=== PATIENT | female | born 1980 | race African-American/Black ===

== ENCOUNTER 2017-07-20 04:30 | Emergency (ER) | payer OTHER ==
[~2017-07-20] VITALS: Ht 157.5 cm; Wt 46.3 kg
[2017-07-20 04:49] LABS: BASOPHILS # (AUTO) 0.1 (0.0-0.1); BASOPHILS % 1.1 % (0.0-1.0); EOSINOPHILS # (AUTO) 1.5 (0.0-0.4); EOSINOPHILS % 15.4 % (0.0-6.0); HEMATOCRIT 23.7 % (34.2-44.1); LYMPHOCYTES # (AUTO) 1.5 (1.0-3.2); LYMPHOCYTES % 15.4 % (18.0-39.1); MEAN CORPUSCULAR HEMOGLOBIN 24.9 pg (28-32); MEAN CORPUSCULAR HGB CONC 31.6 g/dL (31-35); MEAN CORPUSCULAR VOLUME 78.7 fL (81-99); MONOCYTES # (AUTO) 1.1 (0.2-0.8); MONOCYTES % 11.9 % (4.4-11.3); NEUTROPHILS # (AUTO) 5.4 (2.1-6.9); NEUTROPHILS % 55.9 % (38.7-80.0); PLATELET COUNT 403 x10e3/uL (140-360); RED BLOOD COUNT 3.01 x10e6/uL (3.6-5.1); RED CELL DISTRIBUTION WIDTH 16.5 % (11.7-14.4)
[2017-07-20 04:50] LABS: HEMOGLOBIN 7.5 g/dL (12.0-16.0)
[2017-07-20 04:57] LABS: INR 1.34; PROTHROMBIN TIME 15.6 seconds (11.9-14.5)
[2017-07-20 04:58] LABS: PARTIAL THROMBOPLASTIN TIME 38.7 seconds (23.8-35.5)
[2017-07-20 05:08] LABS: ALANINE AMINOTRANSFERASE 14 IU/L (0-55); ALBUMIN 2.5 g/dL (3.5-5.0); ALBUMIN/GLOBULIN RATIO 0.8 (0.8-2.0); ALKALINE PHOSPHATASE 141 IU/L (40-150); ANION GAP 16.5 mmol/L (8-16); BLOOD UREA NITROGEN 27 mg/dL (7-26); BUN/CREATININE RATIO 11 (6-25); CALCIUM 9.5 mg/dL (8.4-10.2); CARBON DIOXIDE 28 mmol/L (22-29); CHLORIDE 99 mmol/L (98-107); CREATININE, SERUM 2.38 mg/dL (0.57-1.11); EST GLOMERULAR FILTRATION RATE 28 ML/MIN (60-); GLUCOSE 245 mg/dL (74-118); POTASSIUM 3.5 mmol/L (3.5-5.1); SODIUM 140 mmol/L (136-145)
[2017-07-20] MEDS ORDERED: HYDRALAZINE HCL 20 MG/ML VIAL IV STA (05:57)
[2017-07-20] MEDS ORDERED: HYDRALAZINE HCL 20 MG/ML VIAL ONE (06:03)
== END 2017-07-20 06:47 ==
LOC: ER 04:30
DX: K06.8 Other specified disorders of gingiva and edentulous alveolar ridge (principal); I12.0 Hypertensive chronic kidney disease with stage 5 chronic kidney disease or end stage renal disease; N18.6 End stage renal disease; G93.1 Anoxic brain damage, not elsewhere classified
CPT/HCPCS: 36415; 80053; 85025; 85610; 85730; 86850; 86900; 99283; J0360

== ENCOUNTER 2017-07-29 19:50 | Inpatient (IN) | payer OTHER ==
[~2017-07-29] VITALS: Ht 157.5 cm; Wt 55.3 kg
[2017-07-29] MEDS: ALBUTEROL SULF 0.083% NEB SOLN 3 ML NEB NEB SCH (02:32)
[2017-07-29] MEDS: FLUCONAZOLE 200 MG/100 ML 100 ML IV SCH (02:50)
--- OUTSIDE RECORDS SUMMARY | 2017-07-29 19:54 | XMS REPORT | Continuity of Care Document ---
Author Author [facility] Organization [facility] Address [address] [place] [address] Phone Unavailable Care Team Providers Care Talent Specialist Name Role Phone ROMAN SHAHID MD PCP Insurance Providers Guarantor Maximilian Delgado Address [address] [place] [address] Email NONE Payer [employer] Policy Number [id number] Subscriber's Name Maximilian Delgado Relationship 18 Self / Same As Patient Advance Directives Directive Response Recorded Date/Time Does the patient have an advance directive? No 07/20/17 5:27am If yes, is advance directive on file with [facility]? No 07/20/17 5:27am If not on file with [facility] will patient provide a copy? Yes 07/20/17 5:27am Do you have a Directive to Physician? No 07/20/17 5:27am Do you have a Medical Power of Bioinformatics Specialist? No 07/20/17 5:27am Do you have an out of hospital Do Not Resuscitate Order? No 07/20/17 5:27am Do you have any special needs we should be aware of? No 07/20/17 5:27am Do you have a support person here with you today? Yes 07/20/17 5:27am Did patient receive Notice of Privacy Practices? Yes 07/20/17 5:27am Did patient receive patient rights and responsibilities? Yes 07/20/17 5:27am Problems No problem information available. Medications No medication information available. Social History Smoking Status Start Date Stop Date Unknown if ever smoked Hospital Discharge Instructions No hospital discharge instruction information available. Plan of Care Discharge Date 07/20/17 6:47am Disposition DIS TO SHELTER BED Condition at Discharge Stable Forms Provided Work/School Excuse Prescriptions See Medication Section Functional Status No functional status information available. Allergies, Adverse Reactions, Alerts No known allergies. Immunizations No immunization information available. Vital Signs Acute Vital Signs Vital Response Date/Time Height 5 ft 2 in 07/20/2017 4:46am Weight 102 lb 07/20/2017 4:46am Body Mass Index 18.7 kg/m^2 07/20/2017 4:46am Results Laboratory Results Test Name Result Units Flags Reference Collection Date/Time Result Date/ Time Comments White Blood Count 9.57 x10e3/uL 4.8-10.8 07/20/2017 4:38am 07/20/2017 4 :50am Red Blood Count 3.01 x10e6/uL L 3.6-5.1 07/20/2017 4:38am 07/20/2017 4: 50am Hemoglobin 7.5 g/dL *L 12.0-16.0 07/20/2017 4:38am 07/20/2017 4:50am Results called to WILLIAM ARNOLD RN at 0449 on 07/20/17 by Jann Samaniego. RB OK. This test has been rerun and double checked for accuracy. Hematocrit 23.7 % L 34.2-44.1 07/20/2017 4:38am 07/20/2017 4:50am Mean Corpuscular Volume 78.7 fL L 81-99 07/20/2017 4:38am 07/20/2017 4: 50am Mean Corpuscular Hemoglobin 24.9 pg L 28-32 07/20/2017 4:38am 2017 4:50am Mean Corpuscular Hemoglobin Concent 31.6 g/dL 31-35 07/20/2017 4:38am 07/20/2017 4:50am Red Cell Distribution Width 16.5 % H 11.7-14.4 07/20/2017 4:38am 2017 4:50am Platelet Count 403 x10e3/uL H 140-360 07/20/2017 4:38am 07/20/2017 4: 50am Neutrophils (%) (Auto) 55.9 % 38.7-80.0 07/20/2017 4:38am 07/20/2017 4: 50am Lymphocytes (%) (Auto) 15.4 % L 18.0-39.1 07/20/2017 4:38am 07/20/2017 4 :50am Monocytes (%) (Auto) 11.9 % H 4.4-11.3 07/20/2017 4:38am 07/20/2017 4: 50am Eosinophils (%) (Auto) 15.4 % H 0.0-6.0 07/20/2017 4:38am 07/20/2017 4: 50am Basophils (%) (Auto) 1.1 % H 0.0-1.0 07/20/2017 4:38am 07/20/2017 4: 50am IM GRANULOCYTES % 0.3 % 0.0-1.0 07/20/2017 4:38am 07/20/2017 4:50am Neutrophils # (Auto) 5.4 2.1-6.9 07/20/2017 4:38am 07/20/2017 4:50am Lymphocytes # (Auto) 1.5 1.0-3.2 07/20/2017 4:38am 07/20/2017 4:50am Monocytes # (Auto) 1.1 H 0.2-0.8 07/20/2017 4:38am 07/20/2017 4:50am Eosinophils # (Auto) 1.5 H 0.0-0.4 07/20/2017 4:38am 07/20/2017 4: 50am Basophils # (Auto) 0.1 0.0-0.1 07/20/2017 4:38am 07/20/2017 4:50am Absolute Immature Granulocyte (auto 0.03 x10e3/uL 0-0.1 07/20/2017 4: 38am 07/20/2017 4:50am Prothrombin Time 15.6 seconds H 11.9-14.5 07/20/2017 4:38am 07/20/2017 5 :02am Prothromb Time International Ratio 1.34 07/20/2017 4:38am 2017 5:02am Oral Anticoagulant Therapy INR Values: 1. Low Intensity Therapy 1.5 - 2.0 2. Moderate Intensity Therapy 2.0 - 3.0 3. High Intensity Therapy(1) 2.5 - 3.5 4. High Intensity Therapy(2) 3.0 - 4.0 5. Panic Value INR > 5.0 Activated Partial Thromboplast Time 38.7 seconds H 23.8-35.5 07/20/2017 4 :38am 07/20/2017 5:02am Sodium Level 140 mmol/L 136-145 07/20/2017 4:38am 07/20/2017 5:09am Potassium Level 3.5 mmol/L 3.5-5.1 07/20/2017 4:38am 07/20/2017 5:09am Chloride Level 99 mmol/L 98-107 07/20/2017 4:38am 07/20/2017 5:09am Carbon Dioxide Level 28 mmol/L 22-29 07/20/2017 4:38am 07/20/2017 5: 09am Anion Gap 16.5 mmol/L H 8-16 07/20/2017 4:38am 07/20/2017 5:09am Blood Urea Nitrogen 27 mg/dL H 7-26 07/20/2017 4:38am 07/20/2017 5:09am Creatinine 2.38 mg/dL H 0.57-1.11 07/20/2017 4:38am 07/20/2017 5:09am BUN/Creatinine Ratio 11 6-25 07/20/2017 4:38am 07/20/2017 5:09am Estimat Glomerular Filtration Rate 28 ML/MIN L 60- 07/20/2017 4:38am 11/2017 5:09am Ranges were taken from the National Kidney Disease Education Program and the National Kidney Foundation literature. Reference ranges: 60 or greater: Normal 16-59 (for 3 consecutive months): Chronic kidney disease 15 or less: Kidney failure Glucose Level 245 mg/dL H 74-118 07/20/2017 4:38am 07/20/2017 5:09am Calcium Level 9.5 mg/dL 8.4-10.2 07/20/2017 4:38am 07/20/2017 5:09am Total Bilirubin < 0.3 mg/dL 0.2-1.2 07/20/2017 4:38am 07/20/2017 5: 09am Aspartate Amino Transf (AST/SGOT) 16 IU/L 5-34 07/20/2017 4:38am 2017 5:09am Alanine Aminotransferase (ALT/SGPT) 14 IU/L 0-55 07/20/2017 4:38am 11/2017 5:09am Total Protein 5.8 g/dL L 6.5-8.1 07/20/2017 4:38am 07/20/2017 5:09am Albumin 2.5 g/dL L 3.5-5.0 07/20/2017 4:38am 07/20/2017 5:09am Globulin 3.3 g/dL 2.3-3.5 07/20/2017 4:38am 07/20/2017 5:09am Albumin/Globulin Ratio 0.8 0.8-2.0 07/20/2017 4:38am 07/20/2017 5: 09am Alkaline Phosphatase 141 IU/L 40-150 07/20/2017 4:38am 07/20/2017 5: 09am Procedures No procedure information available. Encounters Encounter Location Arrival/Admit Date Discharge/Depart Date Attending Provider Departed Emergency Room [facility] 07/20/17 4:30am 6:47am JOYCE JIMÉNEZ MD
[2017-07-29 21:07] LABS: ALBUMIN 2.4 g/dL (3.5-5.0); ALBUMIN/GLOBULIN RATIO 0.7 (0.8-2.0); ANION GAP 16.6 mmol/L (8-16); CALCIUM 11.2 mg/dL (8.4-10.2); CREATININE, SERUM 2.53 mg/dL (0.57-1.11); POTASSIUM 3.6 mmol/L (3.5-5.1)
--- NOTE | 2017-07-29 21:36 | Diagnostic Imaging Report ---
CHEST SINGLE (PORTABLE), 07/29/2017 8:04 PM Technique: CHEST SINGLE (PORTABLE) History: Elevated white blood cell count No comparison Findings: See Impression Impression: 1. Lines/Tubes: Tracheostomy in place. Left dual-lumen central venous catheter with tips in the left brachiocephalic vein and proximal SVC. 2. Permanent cardiomediastinal silhouette, accentuated by technique. 3. Diffuse bilateral and left basilar opacities which may reflect a combination of edema/infection. No significant effusion. Signed by: Dr Maya Martinez MD on 07/29/2017 9:32 PM
[2017-07-29 21:59] LABS: BASOPHILS % 0.3 % (0.0-1.0); EOSINOPHILS # (AUTO) 2.7 (0.0-0.4); EOSINOPHILS % 18.5 % (0.0-6.0); LYMPHOCYTES % 13.9 % (18.0-39.1); MEAN CORPUSCULAR HEMOGLOBIN 25.3 pg (28-32); MEAN CORPUSCULAR HGB CONC 30.7 g/dL (31-35); MEAN CORPUSCULAR VOLUME 82.4 fL (81-99); MONOCYTES # (AUTO) 1.5 (0.2-0.8); MONOCYTES % 10.5 % (4.4-11.3); NEUTROPHILS # (AUTO) 8.1 (2.1-6.9); NEUTROPHILS % 55.7 % (38.7-80.0); PLATELET COUNT 466 x10e3/uL (140-360); RED BLOOD COUNT 2.73 x10e6/uL (3.6-5.1); RED CELL DISTRIBUTION WIDTH 17.8 % (11.7-14.4)
[2017-07-29 22:01] LABS: HEMATOCRIT 22.5 % (34.2-44.1); HEMOGLOBIN 6.9 g/dL (12.0-16.0)
[2017-07-29] MEDS ORDERED: ASPIRIN 81 MG CHEW TAB PO ONE (22:15)
[2017-07-29] MEDS ORDERED: SODIUM CHLORIDE FLUSH 10 ML SYR INJ PRN (22:15)
[2017-07-29] MEDS ORDERED: DEXTROSE 50% SYRINGE 50 ML IV PRN (22:15)
[2017-07-29] MEDS ORDERED: ACETAMINOPHEN 1000 MG/100 ML IV PRN (22:15)
--- OUTSIDE RECORDS SUMMARY | 2017-07-29 22:33 | XMS REPORT ---
Author [facility] Address Unknown Phone Unavailable Care Team Providers Care Bunch Maker Hand Name Role Phone JOYCE JIMÉNEZ Unavailable Unavailable Problems This patient has no known problems. Allergies, Adverse Reactions, Alerts This patient has no known allergies or adverse reactions. Medications This patient has no known medications. Results Test Description Test Time Test Comments Text Results Atomic Results Result Comments CHEST SINGLE (PORTABLE) [place] [address] Patient Name: MAXIMILIAN DELGADO MR #: [id number] : 1980 Age/Sex: 37/F Req #: [id number] Adm Physician: Ordered by: JOYCE JIMÉNEZ MD Report #: [id number] Location: ER Room/Bed: ___ Procedure: [id number] DX/CHEST SINGLE (PORTABLE) Exam Date: 07/29/17 Exam Time: 2058 REPORT STATUS: Signed CHEST SINGLE (PORTABLE), 07/29/2017 8:04 PM Technique: CHEST SINGLE (PORTABLE) History: Elevated white blood cell count No comparison Findings: See Impression Impression: 1. Lines/Tubes: Tracheostomy in place. Left dual- lumen central venous catheter with tips in the left brachiocephalic vein and proximal SVC. 2. Permanent cardiomediastinal silhouette, accentuated by technique. 3. Diffuse bilateral and left basilar opacities which may reflect a combination of edema/infection. No significant effusion. Signed by: Dr Erick Martinez MD on 07/29/2017 9:32 PM Dictated By: ERICK MARTINEZ MD 31 Transcribed By: BREANNA on 07/29/172131 COPY TO: JOYCE JIMÉNEZ MD
[2017-07-29 22:44] LABS: CREATINE KINASE MB 1.2 ng/mL (0-5.0)
[2017-07-29] MEDS: MEROPENEM 500MG 500 MG in SODIUM CHLORIDE 0.9% 50ML 50 ML IV SCH (23:56)
[2017-07-30 01:10] VITALS: BP 180/79
[2017-07-30] MEDS: IPRATROPIUM BROMIDE 0.02% 2.5 ML NEB NEB SCH ×4 (02:05→19:30)
[2017-07-30] MEDS ORDERED: SODIUM CHLORIDE 0.9% 250ML 250 ML ONE ×2 (02:48→11:38)
[2017-07-30] MEDS: ALBUTEROL SULF 0.083% NEB SOLN 3 ML NEB NEB SCH ×6 (03:05→23:45)
[2017-07-30 04:00] VITALS: BP 190/79
[2017-07-30] MEDS ORDERED: SODIUM CHLORIDE 0.9% 250ML 250 ML IV ONE (04:45)
--- NOTE | 2017-07-30 05:09 | Consultation ---
DATE OF CONSULTATION: July 30, 2017 Most of the history is from the patient's father, chart and ER physician. A 37-year-old female apparently in a senior living with end-stage renal disease, anoxic brain injury, tracheostomy, totally dependent on activities of daily living. She was sent from the senior living because of elevated white count. No reported fever or chills. Blood cultures are pending. Laboratory test shows white count of 14.5, hemoglobin 6.9. Potassium 3.6, creatinine 2.53. Calcium 11.2. ALLERGIES: NO APPARENT DRUG ALLERGIES. CURRENT MEDICATIONS: Patient is on fluconazole, meropenem. Dr. Chambres following. Albuterol, aspirin, Atrovent nebulizers, insulin. SOCIAL HISTORY: Totally dependent on activities of daily. Anoxic brain injury. The patient unable to follow any commands. REVIEW OF SYSTEMS: Unable to get review of systems. Does not make eye contact. PHYSICAL EXAMINATION GENERAL: The patient has got a tracheostomy. Laying supine. No apparent distress. Left-sided tunnel dialysis catheter noted. VITALS: Blood pressure 154/84, pulse rate 84, oxygen saturation 100%. HEAD AND NECK: Oral mucosa unable to examine. Pupils reactive. Tracheostomy noted. LUNGS: Harsh vesicular breath sounds. Scattered rales in the lower third, right side more than left. Otherwise, anteriorly clear. HEART: S1 and S2 audible. ABDOMEN: Soft and nontender. PEG tube noted. LOWER EXTREMITY EXAMINATION: No edema. IMPRESSION AND PLAN 1. Anoxic brain injury: Dependent on activities of daily living. 2. Anemia: Plan is to transfuse 2 units of packed red blood cells. 3. Underlying sepsis: Dr. Chambers is aware and following. Antibiotics per Dr. Chambers. I will arrange dialysis. Transfuse packed RBCs. Chest x-ray shows evidence of possible clearing of pleural effusion. Recommend pulmonary input. Catheter exit site stable. No sign of infection. Fever workup per Dr. Chambers. Job#: [id number] [place]
[2017-07-30] MEDS ORDERED: HYDRALAZINE HCL 20 MG/ML VIAL IV PRN (06:15)
[2017-07-30 08:00] VITALS: BP 160/67
[2017-07-30] MEDS: INSULIN REGULAR, HUMAN 100 UNIT/1 ML 3ML VIAL SQ SCH ×4 (08:00→21:45)
[2017-07-30] MEDS ORDERED: METRONIDAZOLE500 MG PEG (10:22)
[2017-07-30] MEDS ORDERED: AMLODIPINE BESY10 MG PEG (10:22)
[2017-07-30] MEDS ORDERED: LANTUS 3ML100 UNITS/ SC (10:22)
[2017-07-30] MEDS ORDERED: METOCLOPRAMIDE10 MG PEG (10:22)
[2017-07-30] MEDS ORDERED: LEVETIRACETAM500 MG PEG (10:22)
[2017-07-30] MEDS ORDERED: LABETALOL HCL200 MG PEG (10:22)
[2017-07-30] MEDS ORDERED: FAMOTIDINE20 MG PO (10:22)
[2017-07-30] MEDS ORDERED: CLONIDINE HCL0.2 MG PEG (10:22)
[2017-07-30] MEDS ORDERED: ACETAMINOPHEN650 M1 PEG (10:22)
[2017-07-30] MEDS ORDERED: NEPHRO-VITE TABL1 EA PEG (10:22)
[2017-07-30] MEDS ORDERED: FERROUS SULFAT325 MG PEG (10:22)
[2017-07-30] MEDS ORDERED: DULCOLAX5 MG PEG (10:22)
[2017-07-30] MEDS ORDERED: HYDRALAZINE HCL25 MG PO (10:22)
[2017-07-30] MEDS ORDERED: ASCORBIC ACID500 MG PEG (10:22)
[2017-07-30] MEDS ORDERED: ZINC SULFATE220 MG PEG (10:22)
[2017-07-30] MEDS ORDERED: LACTULOSE20 GM/30 M PEG (10:22)
[2017-07-30] MEDS ORDERED: CEFTAZIDIM1 GM/50 ML IV (10:22)
[2017-07-30] MEDS ORDERED: phoslo PEG (10:22)
[2017-07-30] MEDS ORDERED: DIFLUCAN150 MG PEG (10:23)
[2017-07-30 10:25] LABS: CREATINE KINASE MB 1.6 ng/mL (0-5.0)
[2017-07-30] MEDS: AMLODIPINE BESYLATE 10 MG TAB PEG SCH (14:30)
[2017-07-30] MEDS ORDERED: BISACODYL 5 MG TAB EC PO PRN (14:30)
[2017-07-30] MEDS: HYDRALAZINE HCL 25 MG TAB PO SCH ×2 (14:30→18:10)
[2017-07-30] MEDS: LABETALOL HCL 200 MG TAB PO SCH ×2 (14:30→18:10)
[2017-07-30] MEDS ORDERED: LEVETIRACETAM 500 MG TAB PEG SCH (14:30)
[2017-07-30] MEDS: CLONIDINE HCL 0.1 MG TAB PO SCH ×2 (14:30→18:09)
[2017-07-30] MEDS ORDERED: PHOSLO 667 MG PEG SCH (15:00)
[2017-07-30] MEDS: FAMOTIDINE 20 MG TAB PO SCH ×2 (15:00→21:45)
[2017-07-30] MEDS: ACETAMINOPHEN 325 MG TAB PEG PRN (15:04)
[2017-07-30 16:00] VITALS: BP 178/94
--- NOTE | 2017-07-30 16:11 | History and Physical ---
PRIMARY CARE PROVIDER: Dr. Major Arguello at [facility]. CHIEF COMPLAINT: Pneumonia with sepsis. HISTORY OF PRESENT ILLNESS: Ms. 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 She has a trach and a PEG, and has been at the [facility]. She has been on IV vanc and Fortaz for the last 2 weeks for pneumonia. She started having recurrent fever and was sent to the hospital for evaluation at the recommendation of the ID doctor that is seeing her at the senior care. REVIEW OF SYSTEMS: Unobtainable as the patient is nonvocal and nonverbal. PAST MEDICAL HISTORY: Significant for anoxic brain injury due to cardiac arrest a couple years ago. She has a trach and PEG in place, and a dialysis catheter. She has long-standing hypertension and type 2 diabetes. She has end-stage renal disease and seizures that occurred after the cardiac arrest. CURRENT MEDICATIONS: In addition to the antibiotics include: 1. Keppra 1000 mg twice daily. 2. Metoclopramide 5 mg q.6 h. by PEG. 3. Metronidazole 500 mg by PEG 3 times a day. 4. Zinc sulfate 220 mg by PEG daily. 5. PhosLo 667 mg by PEG 3 times a day. 6. Hydralazine 50 mg by PEG q.6 h. 7. Dulcolax as needed. 8. Vitamin C 500 mg by PEG daily. 9. Amlodipine 10 mg by PEG daily. 10. Tylenol as needed. 11. Lactulose as needed. 12. Labetalol 600 mg on Tuesday, Tuesday, Tuesday, and Tuesday. 13. Lantus insulin 35 units at bedtime. 14. Nephro-Be daily. 15. Ferrous sulfate 325 mg 3 times a day. 16. Pepcid 20 mg daily. 17. Clonidine 0.2 mg on Tuesday, Tuesday, Tuesday, and Tuesday. ALLERGIES: SHE HAS NO KNOWN DRUG ALLERGIES. FAMILY HISTORY: Significant for hypertension and diabetes. SOCIAL HISTORY: The patient is a resident at [facility]. She has anoxic brain injury and requires assistance with all activities of daily living. She is totally dependent and unresponsive. PHYSICAL EXAMINATION PSYCHIATRIC: As noted above. The patient is unresponsive. Her eyes are open, but she does not respond to stimulation. She has a normal body habitus. Is in no acute distress. VITAL SIGNS: Blood pressure 160/67, pulse 111 and regular, respiratory rate 16, O2 sat 99% on room air, temperature 96.8. Max temp on arrival 100. HEENT: Head is atraumatic. Eyes are anicteric with clear conjunctivae. Ears and nares are without erythema or discharge. Oropharynx is clear. NECK: Supple. No mass or thyromegaly. LYMPHATIC SYSTEM: She has no palpable cervical, axillary or inguinal adenopathy. CARDIOVASCULAR: Her heart has a regular rate and rhythm. Somewhat tachycardic without murmur. She has no peripheral edema, except the right hand has some pitting edema. She has palpable dorsal pedal pulses. She has no carotid bruit. RESPIRATORY: Lungs reveal some coarse breath sounds and some scattered rhonchi with normal respiratory effort. GASTROINTESTINAL: Abdomen is soft without organomegaly, masses or tenderness. She has a functional PEG tube in place. Normal bowel sounds are present. CUTANEOUS: Her skin is warm and dry to touch with no rash. She has a stage 3 decubitus ulcer in the sacral area. MUSCULOSKELETAL: Her joints are in normal alignment without erythema or swelling. She has no calf tenderness. NEUROLOGIC: The patient is in a persistent neurovegetative state. She has no spontaneous movement and she is unresponsive to stimulation. DIAGNOSTIC STUDIES: Chest x-ray shows a trach in place. A central venous dialysis catheter in good position and patchy bilateral infiltrates. Her CBC shows a white count of 14.5, which is elevated with 56% neutrophils, 14% lymphocytes, 11% monocytes. Hemoglobin 6.9, hematocrit 22.5 with microcytic indices and platelet count 466,000. Chemistry showed normal electrolytes. CO2 29, creatinine 2.53, BUN 11 for a GFR of 26. Calcium 11.2. Glucose 100. Transaminases, bilirubin and alk phos are normal. IMPRESSION AND PLAN 1. Pneumonia with sepsis: The patient has been started empirically on intravenous fluconazole and meropenem per the infectious disease specialist who has been consulted. She will continue aggressive nebulizer treatments too. 2. Persistent neurovegetative state: The patient has a trach and percutaneous endoscopic gastrostomy in place. Will continue tube feeding and oxygen by trach collar. 3. Hypertension with end-stage renal disease: The patient will continue with labetalol, hydralazine, clonidine, and Norvasc. 4. Type 2 diabetes with end-stage renal disease: The patient is getting tube feeding with Glucerna. Will continue sliding scale insulin for now. 5. End-stage renal disease: Nephrology has been consulted for hemodialysis, which she is receiving today. 6. Microcytic anemia, most likely due to the end-stage renal disease: The patient is getting transfused 2 units of packed red cells during dialysis today for a hemoglobin of 6.9. 7. Sacral decubitus ulcer: The patient has been started on wound care and is getting nutritional supplements for wound healing. 8. Hypercalcemia most likely due to dehydration and due to the chronic kidney disease: The patient has been started on PhosLo and some hydration. With dialysis, the hypercalcemia should resolve on its own. 9. For prophylaxis, the patient is on Pepcid for gastrointestinal prophylaxis and sequential compression devices for deep venous thrombosis prophylaxis. Her risk of being minimal due to the fact that she has been bedbound for almost 2 years now. Job#: [id number] AMBIKA
[2017-07-30] MEDS ORDERED: SODIUM CHLORIDE 0.9% 1000ML 1,000 ML ONE (17:36)
[2017-07-30] MEDS: METOCLOPRAMIDE HCL 10 MG TAB PEG SCH (18:10)
[2017-07-30] MEDS: CALCIUM ACETATE 667 MG GELCAP PEG SCH (18:11)
[2017-07-30 20:00] VITALS: BP 130/60
[2017-07-30 21:45] VITALS: BP 130/60
[2017-07-30] MEDS: LEVETIRACETAM ORAL SOLUTION 500 MG/5 ML SOLN PEG SCH (21:45)
[2017-07-30] MEDS: METRONIDAZOLE 500 MG TAB PEG SCH (21:45)
[2017-07-30 22:34] LABS: INR 1.31; PROTHROMBIN TIME 15.3 seconds (11.9-14.5)
[2017-07-30 22:49] LABS: CREATINE KINASE MB 2.4 ng/mL (0-5.0)
[2017-07-31] VITALS (51 sets, daily range): BP systolic 97–180; BP diastolic 49–107
[2017-07-31] MEDS ORDERED: MEROPENEM 500 MG VIAL ONE ×2 (00:28→23:29)
[2017-07-31] MEDS: HYDRALAZINE HCL 25 MG TAB PO SCH ×4 (00:42→18:00)
[2017-07-31] MEDS: METOCLOPRAMIDE HCL 10 MG TAB PEG SCH ×4 (00:42→17:47)
--- NOTE | 2017-07-31 00:42 | Consultation ---
DATE OF CONSULTATION: REASON FOR CONSULTATION: Fever. HISTORY OF PRESENT ILLNESS: This is a 37-year-old female with end-stage renal disease, on hemodialysis; history of anoxic brain injury; history of tracheostomy; multiple admissions recently for pneumonia; and the patient was recently in [facility] where she was diagnosed with pneumonia. She was transferred to skilled care facility with IV antibiotic. She received 3 weeks of intravenous vancomycin and meropenem, but then she was felt to have fever, she also had anemia. I was contacted by the internal medicine service about her condition. We discussed her case. I felt if she is running fever come here. This patient does not really provide any meaningful information. She does have history of anoxic brain injury from cardiac arrest couple of years ago, status post trach, status post PEG. Now on hemodialysis. She also has history of hypertension and diabetes mellitus. There is no family for me to interview at present time. PAST MEDICAL HISTORY AND PAST SURGICAL HISTORY: As above. ALLERGIES: NKA. SOCIAL HISTORY: From a prison. FAMILY HISTORY: Could not be obtained. REVIEW OF SYSTEMS: Could not be obtained. HOME MEDICATIONS: She is on Keppra, metronidazole, zinc oxide, vitamin C. LABORATORY DATA: Reviewed. White count 14.5, hemoglobin 6.9. Her sodium 136, potassium 3.6. PHYSICAL EXAMINATION: GENERAL: She is nonverbal, does not seem to be in acute distress. VITALS: Stable, currently afebrile. HEENT: She does not appear icteric. NECK: Supple. CHEST: Clear. COR: S1 and S2, no murmur. ABDOMEN: Soft. IMPRESSION: 1. Fever, concern about infection, fungemia. Obtain blood cultures, discontinue on antibiotic. Will put her on Diflucan. 2. History of pneumonia, aspiration. 3. Chronic kidney disease. 4. Brain injury with encephalopathy. 5. Anemia, etiology unclear. Status post tracheostomy, probably recurrent aspiration pneumonia, probably pulmonary edema also. Depending on the blood cultures and the clinical progress, will follow. Continue the above plan. Discussed with internal medicine. Discussed with emergency room. Thank you. Job#: [id number]
[2017-07-31] MEDS: FLUCONAZOLE 200 MG/100 ML 100 ML IV SCH ×2 (00:43→22:48)
[2017-07-31] MEDS: MEROPENEM 500MG 500 MG in SODIUM CHLORIDE 0.9% 50ML 50 ML IV SCH ×2 (00:43→23:26)
[2017-07-31] MEDS ORDERED: LEVETIRACETAM 500 MG TAB PEG SCH (02:30)
[2017-07-31] MEDS: ALBUTEROL SULF 0.083% NEB SOLN 3 ML NEB NEB SCH ×6 (03:12→22:21)
[2017-07-31] MEDS: IPRATROPIUM BROMIDE 0.02% 2.5 ML NEB NEB SCH ×5 (03:12→22:21)
[2017-07-31 06:07] LABS: BASOPHILS # (AUTO) 0.2 (0.0-0.1); BASOPHILS % 0.9 % (0.0-1.0); EOSINOPHILS # (AUTO) 0.5 (0.0-0.4); EOSINOPHILS % 2.5 % (0.0-6.0); HEMOGLOBIN 9.7 g/dL (12.0-16.0); LYMPHOCYTES # (AUTO) 1.6 (1.0-3.2); LYMPHOCYTES % 8.6 % (18.0-39.1); MEAN CORPUSCULAR HEMOGLOBIN 26.4 pg (28-32); MEAN CORPUSCULAR HGB CONC 30.3 g/dL (31-35); MEAN CORPUSCULAR VOLUME 87.2 fL (81-99); MONOCYTES # (AUTO) 1.5 (0.2-0.8); NEUTROPHILS # (AUTO) 14.1 (2.1-6.9); NEUTROPHILS % 77.6 % (38.7-80.0); PLATELET COUNT 425 x10e3/uL (140-360); RED BLOOD COUNT 3.67 x10e6/uL (3.6-5.1); RED CELL DISTRIBUTION WIDTH 17.9 % (11.7-14.4)
[2017-07-31] MEDS: METRONIDAZOLE 500 MG TAB PEG SCH ×3 (06:18→22:47)
[2017-07-31] MEDS: INSULIN REGULAR, HUMAN 100 UNIT/1 ML 3ML VIAL SQ SCH ×4 (08:10→21:00)
[2017-07-31 08:13] LABS: FOLATE 19.7 ng/mL (7.0-15.4)
[2017-07-31] MEDS ORDERED: SODIUM CHLORIDE 0.9% 1000ML 1,000 ML IV ONE (08:20)
[2017-07-31] MEDS ORDERED: SODIUM CHLORIDE 0.9% 500ML 500 ML ONE (08:31)
[2017-07-31 08:42] LABS: ANION GAP 43.5 mmol/L (8-16); CALCIUM 10.1 mg/dL (8.4-10.2); CREATININE, SERUM 2.86 mg/dL (0.57-1.11); POTASSIUM 4.5 mmol/L (3.5-5.1)
[2017-07-31] MEDS: AMLODIPINE BESYLATE 10 MG TAB PEG SCH (09:00)
[2017-07-31] MEDS: LABETALOL HCL 200 MG TAB PO SCH ×2 (09:00→17:46)
[2017-07-31] MEDS: CLONIDINE HCL 0.1 MG TAB PO SCH ×2 (09:00→17:00)
[2017-07-31 09:01] LABS: FREE T4 (FREE THYROXINE) 1.23 ng/dL (0.9-1.8); THYROID STIMULATING HORMONE 2.601 uIU/mL (0.350-4.940)
[2017-07-31 09:12] LABS: ABG HCO3 4 mmol/L (23-28); ABG PCO2 12 mmHg (41-51); ABG PH 7.13 (7.31-7.41); ABG PO2 138 mmHg (80-105)
[2017-07-31] MEDS ORDERED: SODIUM BICARBONATE 8.4% INJ 50 ML SYR IV SCH ×2 (10:25)
[2017-07-31] MEDS: ZINC SULFATE 220 MG CAP PEG SCH (10:47)
[2017-07-31] MEDS: ASCORBIC ACID 500 MG TAB PEG SCH (10:47)
[2017-07-31] MEDS: CALCIUM ACETATE 667 MG GELCAP PEG SCH ×3 (10:47→17:00)
[2017-07-31] MEDS: LEVETIRACETAM ORAL SOLUTION 500 MG/5 ML SOLN PEG SCH ×2 (10:47→21:30)
[2017-07-31] MEDS: FAMOTIDINE 20 MG TAB PO SCH ×2 (10:47→21:30)
[2017-07-31] MEDS: LINEZOLID 600 MG/D5W 300ML 300 ML IV SCH ×2 (10:47→22:47)
[2017-07-31 10:55] LABS: MAGNESIUM 2.2 MG/DL (1.3-2.1)
[2017-07-31 11:21] LABS: BILIRUBIN,URINE NEGATIVE (NEGATIVE); KETONES,URINE 1+ (NEGATIVE); LEUKOCYTE ESTERASE ,URINE 2+ (NEGATIVE); PROTEIN,URINE DIPSTICK 3+ (NEGATIVE); URINE UROBILINOGEN 0.2 mg/dL (0.2 - 1)
[2017-07-31 11:33] LABS: CLARITY,URINE CLOUDY (CLEAR); COLOR,URINE YELLOW (YELLOW); NITRITE,URINE POSITIVE (NEGATIVE)
[2017-07-31 11:41] LABS: AMORPHOUS SEDIMENT,URINE FEW (FEW); BACTERIA,URINE MANY /HPF; EPITHELIAL CELLS,URINE FEW /LPF; MUCUS,URINE MODERATE (RARE); RBC,URINE 21-50 /HPF (0-5); WBC,URINE (MAN) >50 /HPF (0-5)
--- NOTE | 2017-07-31 11:47 | Diagnostic Imaging Report ---
EXAMINATION: CHEST SINGLE (PORTABLE) INDICATION: \S\pna \[id number] \S\1050 COMPARISON: 07/29/2017 FINDINGS: AP view TUBES and LINES: Stable tracheostomy tube and left internal jugular dialysis catheter. LUNGS: Lungs are well inflated. Mild central vascular congestion. No focal consolidation. PLEURA: No pleural effusion or pneumothorax. HEART AND MEDIASTINUM: Enlarged cardiac silhouette. BONES AND SOFT TISSUES: No acute osseous lesion. Soft tissues are unremarkable. UPPER ABDOMEN: No free air under the diaphragm. IMPRESSION: Enlarged cardiac silhouette with pulmonary vascular congestion. No definite focal consolidation. Signed by: Dr. Solomon Dial MD on 07/31/2017 11:44 AM
[2017-07-31] MEDS ORDERED: DEXTROSE 5%/0.45% SOD CHL 1,000 ML IV SCH (11:57)
[2017-07-31] MEDS ORDERED: POTASSIUM CHLORIDE 20MEQ/100ML 200 ML IV PRN (12:00)
[2017-07-31] MEDS ORDERED: MAGNESIUM SULF 1GRAM/DEXTROSE 100 ML IV PRN (12:00)
--- NOTE | 2017-07-31 12:12 | Operative Report ---
DATE OF PROCEDURE: PROCEDURE: Tracheostomy tube change. PROCEDURE IN DETAIL: The patient was put in supine position. Uncuffed tracheostomy tube, Shiley 4, was removed, and Shiley 4 cuffed was placed. Job#: [id number] RI
[2017-07-31] MEDS: SODIUM CHLORIDE 0.9% 1000ML 1,000 ML IV SCH ×4 (12:25→23:57)
[2017-07-31 12:49] LABS: ABG HCO3 12 mmol/L (23-28); ABG PCO2 22 mmHg (41-51); ABG PH 7.39 (7.31-7.41); ABG PO2 247 mmHg (80-105)
[2017-07-31] MEDS: INSULIN REGULAR, HUMAN 3ML VL 100 UNIT in SODIUM CHLORIDE 0.9% 99 ML IV SCH ×4 (13:00→22:45)
[2017-07-31] MEDS: INSULIN REGULAR, HUMAN 3ML VL 1 UNIT in SODIUM CHLORIDE 0.9% 100 ML IV SCH ×2 (13:00)
[2017-07-31 13:01] LABS: ANION GAP 39.4 mmol/L (8-16); CALCIUM 9.7 mg/dL (8.4-10.2); CREATININE, SERUM 3.05 mg/dL (0.57-1.11); POTASSIUM 3.4 mmol/L (3.5-5.1)
[2017-07-31] MEDS ORDERED: HEPARIN SOD (PORCINE) 5,000 UNIT/ML VIAL ONE (13:42)
[2017-07-31] MEDS ORDERED: SODIUM CHLORIDE 0.9% 1000ML 2,000 ML ONE (13:43)
[2017-07-31 14:01] LABS: MAGNESIUM 2.1 MG/DL (1.3-2.1)
--- NOTE | 2017-07-31 14:27 | Consultation ---
DATE OF CONSULTATION: PULMONARY CONSULTATION REASON FOR CONSULTATION: Ventilator management and tracheostomy. HPI: Ms. Mason is a 37-year-old female known to me from [facility]. 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 She has a trach and PEG. She is on hemodialysis as well. She is completely unresponsive. Today, she became more short of breath and was labored. Pulmonary consultation was called. Patient's white count is 18,000 and bicarb on admission was 29. Today, it is 6. Blood gas showed pH of 7.13, pCO2 of 12 and pO2 of 138. Chest x-ray is showing possibility of left lower lobe infiltrate, not very convincing. REVIEW OF SYSTEMS: Unobtainable because of the patient's mental status. PAST MEDICAL HISTORY: End-stage renal disease, anoxic brain injury, tracheostomy, PEG, and type 2 diabetes mellitus. MEDICATIONS: Reviewed. ALLERGIES: NO KNOWN DRUG ALLERGIES. FAMILY HISTORY: Significant for diabetes and hypertension. SOCIAL HISTORY: Currently, at [facility]. She has anoxic brain injury. She is dependent. PHYSICAL EXAMINATION VITAL SIGNS: Temperature 97.8, pulse of 104, blood pressure 97/49, respiratory rate is 24 to 28 per minute. She has a Shiley 4 uncuffed trach. HEENT: Head is atraumatic and normocephalic. She has a persistent vegetative state. CHEST: Clear to auscultation bilaterally. Tracheostomy, Shiley 4 uncuffed. ABDOMEN: Soft, nontender and nondistended. EXTREMITIES: No clubbing, cyanosis or edema. NEUROLOGIC: Anoxic brain injury and unresponsive. LABS: White count of 18,000, hemoglobin 9.7 and platelets 425,000. White count was 14,000 yesterday. Chemistry: BUN 28, creatinine 2.86, bicarb 6. Bicarb was 29 yesterday. Lactic acid today was 11.5, which is within normal limits. Blood sugars have been 512. ASSESSMENT AND PLAN: Ms. Mason is a 37-year-old female who presented with possibility of pneumonia. Currently, in circulatory shock with hypotension, severe metabolic acidosis with normal lactic acid. Blood sugars around 512. Urinalysis shows 1+ ketones. Anion gap of 43.5. Patient is likely in diabetic ketoacidosis versus starvation ketosis. Unlikely, since lactic acid is within normal limits. Catheter site looks dirty as well. IMPRESSION 1. Severe metabolic acidosis, likely ketoacidosis from diabetic ketoacidosis versus starvation. 2. Sepsis: Not very convinced that the patient has pneumonia. However, at high risk of getting pneumonia. 3. Neurovegetative state. 4. Tracheostomy and percutaneous endoscopic gastrostomy tube status. 5. End-stage renal disease. PLAN 1. Will put the patient on mechanical ventilator as she is unable to compensated and is extremely tachypneic with a pCO2 of 12. I will put her on tidal volume of 400, respiratory rate of 22. Patient is about to get hemodialysis. 2. Will give at least 2-3 L of fluid bolus. 3. Start the patient on insulin infusion. Check BMP q.8 h. 4. IV antibiotics per infectious disease recommendations. 5. Discussed with nephrology. Patient will get hemodialysis. Critical care time spent 45 minutes. Job#: [id number] AMBIKA
[2017-07-31 16:51] LABS: ANION GAP 17.5 mmol/L (8-16); CALCIUM 8.8 mg/dL (8.4-10.2); CREATININE, SERUM 1.26 mg/dL (0.57-1.11)
[2017-07-31 17:06] LABS: MAGNESIUM 2.3 MG/DL (1.3-2.1)
[2017-07-31 17:12] LABS: POTASSIUM 2.5 mmol/L (3.5-5.1)
[2017-07-31] MEDS ORDERED: DEXTROSE 5%/0.45% SOD CHL 1,000 ML IV ONE (18:02)
[2017-07-31] MEDS ORDERED: POTASSIUM CHLORIDE 20MEQ/100ML 200 ML ONE (18:02)
[2017-07-31] MEDS: DEXTROSE 5%/0.45% SOD CHL 1,000 ML IV SCH ×2 (18:27→22:00)
[2017-07-31] MEDS ORDERED: DIATRIZOATE MEGL/DIATRIZOA SOD 30 ML BTL PO ONE (20:17)
[2017-07-31 21:17] LABS: ANION GAP 21.2 mmol/L (8-16); CALCIUM 8.6 mg/dL (8.4-10.2); CREATININE, SERUM 1.44 mg/dL (0.57-1.11); MAGNESIUM 1.5 MG/DL (1.3-2.1); POTASSIUM 3.2 mmol/L (3.5-5.1)
--- NOTE | 2017-07-31 21:42 | Progress Note ---
DATE OF CONSULTATION: Ms. Mason, I was contacted today that she continues to worse shortness of breath, and doing well, transferred to ICU. The patient remains nonverbal. This patient has history of anoxic brain surgery, history of end-stage renal disease, used to be on peritoneal dialysis, now on hemodialysis, history of tracheostomy, history diabetes mellitus. Patient was transferred to intensive care unit. She is on dialysis now. No family for me to interview. LABORATORY DATA: Reviewed. Her white count is 18.2, hemoglobin 9.7, it was 6.9 yesterday. Sodium 141, potassium 3.4, creatinine 3.05. Her blood cultures negative so far. PHYSICAL EXAMINATION GENERAL: She is currently in the ICU, intubated, nonverbal. VITALS: Temperature 100.0. HEENT: Normocephalic. NECK: Supple. CHEST: Few rhonchi, coarse. HEART: No murmur. ABDOMEN: Soft. IMPRESSIONS 1. Sepsis, probably pneumonia. 2. Anemia. 3. Currently, she is on linezolid, metronidazole, meropenem, and fluconazole. Will await the blood cultures. Will obtain computed tomography of abdomen and pelvis with oral contrast. 4. Anoxic brain injury. 5. End-stage renal disease, on hemodialysis. Prognosis is poor. Will follow. Job#: [id number] CQ
--- NOTE | 2017-07-31 23:08 | Diagnostic Imaging Report ---
EXAM: CT ABDOMEN/PELVIS WO DATE: 07/31/2017 4:20 PM INDICATION: Colitis COMPARISON: None TECHNIQUE: The abdomen and pelvis were scanned using a multidetector helical scanner. Coronal and sagittal reformations were obtained. Routine protocol performed. IV Contrast: 0 ml Isovue 370 Oral contrast was administered FINDINGS: Lack of IV contrast decreases sensitivity in evaluating abdominal and pelvic organs. LOWER THORAX: Evidence of anemia. Mild cardiomegaly with trace pericardial fluid and pleural effusions. Scattered mucous plugging with left basilar and right middle lobe opacity. Several nonspecific nodules/nodular opacity measuring up to 6 mm. LIVER/BILIARY: No masses. No ductal dilatation. GALLBLADDER: Layering gallstones SPLEEN: Unremarkable PANCREAS: Grossly unremarkable, poorly assessed ADRENALS: No nodules KIDNEYS: No hydronephrosis. GI TRACT: G-tube within the gastric antrum. No evidence of bowel obstruction. There is mild colonic and rectal wall thickening. Appendix is not seen.. VESSELS: Severe diffuse atherosclerotic calcifications. Right femoral catheter terminates within the right external/common iliac vein. PERITONEUM/RETROPERITONEUM: No fluid collection or free air. Diffuse mesenteric haziness. LYMPH NODES: Poorly evaluated without IV contrast REPRODUCTIVE ORGANS/BLADDER: Bladder is decompressed with a Trotter. Pelvic organs are suboptimally assessed. SOFT TISSUES: Anasarca. BONES: No suspicious bone lesions. IMPRESSION: Evaluation degraded by lack of IV contrast 1. Mild proctocolitis, likely infectious or inflammatory. 2. Patchy mucous plugging and pulmonary opacities which may be related to prior/recent infection. Several nonspecific pulmonary nodules. Consider 6-12 month follow-up CT chest. Signed by: Dr Maya Martinez MD on 07/31/2017 11:04 PM
[2017-08-01] VITALS (64 sets, daily range): BP systolic 125–199; BP diastolic 68–109
[2017-08-01 00:31] LABS: ANION GAP 25.4 mmol/L (8-16); CALCIUM 8.5 mg/dL (8.4-10.2); CREATININE, SERUM 1.67 mg/dL (0.57-1.11); MAGNESIUM 1.4 MG/DL (1.3-2.1); POTASSIUM 3.4 mmol/L (3.5-5.1)
[2017-08-01] MEDS: METOCLOPRAMIDE HCL 10 MG TAB PEG SCH ×4 (00:36→17:12)
[2017-08-01] MEDS: HYDRALAZINE HCL 25 MG TAB PO SCH ×4 (00:36→18:00)
[2017-08-01] MEDS: POTASSIUM CHLORIDE 20MEQ/100ML 200 ML IV PRN ×2 (01:50→05:43)
[2017-08-01] MEDS: SODIUM CHLORIDE 0.9% 1000ML 1,000 ML IV SCH ×6 (02:42→23:57)
[2017-08-01] MEDS: IPRATROPIUM BROMIDE 0.02% 2.5 ML NEB NEB SCH ×4 (03:50→20:50)
[2017-08-01 04:57] LABS: BASOPHILS # (AUTO) 0.1 (0.0-0.1); BASOPHILS % 0.5 % (0.0-1.0); EOSINOPHILS # (AUTO) 0.8 (0.0-0.4); EOSINOPHILS % 5.2 % (0.0-6.0); HEMATOCRIT 25.1 % (34.2-44.1); HEMOGLOBIN 8.5 g/dL (12.0-16.0); LYMPHOCYTES # (AUTO) 1.7 (1.0-3.2); LYMPHOCYTES % 10.8 % (18.0-39.1); MEAN CORPUSCULAR HGB CONC 33.9 g/dL (31-35); MONOCYTES # (AUTO) 1.9 (0.2-0.8); NEUTROPHILS % 70.5 % (38.7-80.0); PLATELET COUNT 305 x10e3/uL (140-360); RED BLOOD COUNT 3.15 x10e6/uL (3.6-5.1); RED CELL DISTRIBUTION WIDTH 17.5 % (11.7-14.4)
[2017-08-01] MEDS: INSULIN REGULAR, HUMAN 3ML VL 1 UNIT in SODIUM CHLORIDE 0.9% 100 ML IV SCH ×2 (05:00)
[2017-08-01 05:03] LABS: MEAN CORPUSCULAR VOLUME 79.7 fL (81-99)
[2017-08-01 05:14] LABS: ANION GAP 14.2 mmol/L (8-16); CALCIUM 8.8 mg/dL (8.4-10.2); CREATININE, SERUM 1.85 mg/dL (0.57-1.11); MAGNESIUM 1.5 MG/DL (1.3-2.1); PHOSPHORUS 1.1 MG/DL (2.3-4.7); POTASSIUM 3.2 mmol/L (3.5-5.1)
[2017-08-01] MEDS: METRONIDAZOLE 500 MG TAB PEG SCH ×3 (05:37→22:22)
[2017-08-01] MEDS ORDERED: MAGNESIUM SULF 1GRAM/DEXTROSE 100 ML IV ONE (06:40)
[2017-08-01] MEDS: ALBUTEROL SULF 0.083% NEB SOLN 3 ML NEB NEB SCH ×5 (07:21→23:45)
[2017-08-01] MEDS: INSULIN REGULAR, HUMAN 100 UNIT/1 ML 3ML VIAL SQ SCH ×5 (07:30→21:00)
[2017-08-01] MEDS: INSULIN REGULAR, HUMAN 3ML VL 100 UNIT in SODIUM CHLORIDE 0.9% 99 ML IV SCH ×2 (08:45)
[2017-08-01 09:19] LABS: ANION GAP 13.7 mmol/L (8-16); CREATININE, SERUM 1.89 mg/dL (0.57-1.11); MAGNESIUM 1.7 MG/DL (1.3-2.1); POTASSIUM 3.7 mmol/L (3.5-5.1)
[2017-08-01] MEDS ORDERED: MANNITOL 25% 12.5GM/50 ML VIAL IV PRN (09:30)
[2017-08-01] MEDS ORDERED: HEPARIN SOD (PORCINE) 1000 UNIT/ML SDV IV PRN (09:30)
[2017-08-01] MEDS ORDERED: SODIUM CHLORIDE 0.9% 250ML 500 ML IV PRN (09:30)
[2017-08-01] MEDS ORDERED: SODIUM CHLORIDE 0.9% 1000ML 2,000 ML IV PRN (09:30)
[2017-08-01] MEDS ORDERED: ALBUMIN 25% 12.5GM 0.25 GM/ML BTL IV PRN (09:30)
[2017-08-01] MEDS ORDERED: INSULIN DETEMIR 100 UNIT/ML PEN SQ ONE (10:45)
[2017-08-01] MEDS: LEVETIRACETAM ORAL SOLUTION 500 MG/5 ML SOLN PEG SCH ×2 (12:00→22:21)
[2017-08-01] MEDS: LINEZOLID 600 MG/D5W 300ML 300 ML IV SCH ×2 (13:00→22:22)
[2017-08-01] MEDS: CALCIUM ACETATE 667 MG GELCAP PEG SCH ×3 (13:10→17:13)
[2017-08-01] MEDS: AMLODIPINE BESYLATE 10 MG TAB PEG SCH (13:11)
[2017-08-01] MEDS: FAMOTIDINE 20 MG TAB PO SCH ×2 (13:12→22:22)
[2017-08-01] MEDS: CLONIDINE HCL 0.1 MG TAB PO SCH ×2 (13:12→17:13)
[2017-08-01] MEDS: LABETALOL HCL 200 MG TAB PO SCH ×2 (13:12→17:12)
[2017-08-01] MEDS: ASCORBIC ACID 500 MG TAB PEG SCH (13:12)
[2017-08-01] MEDS: ZINC SULFATE 220 MG CAP PEG SCH (13:12)
[2017-08-01] MEDS ORDERED: INSULIN DETEMIR 100 UNIT/ML PEN SQ STA (14:23)
[2017-08-01] MEDS ORDERED: DEXTROSE 50% SYRINGE 50 ML IV PRN (14:30)
[2017-08-01] MEDS: DEXTROSE 5%/0.45% SOD CHL 1,000 ML IV SCH ×2 (15:37→18:00)
--- NOTE | 2017-08-01 16:33 | Progress Note ---
DATE: August 01, 2017 Ms. Mason remains in ICU on a ventilator. The patient is nonverbal. OBJECTIVE GENERAL: She is currently nonverbal. She is not in any acute distress. VITAL SIGNS: Stable. Temperature 100.1. HEENT: Normocephalic. NECK: Supple. CHEST: A few crackles. HEART: S1 and S2, no murmur. ABDOMEN: Soft. IMPRESSION 1. Sepsis. 2. Pneumonia. 3. History of anoxic brain injury. 4. Chronic kidney disease on hemodialysis. 5. Non-vegetative state. PLAN: Continue with the current choice of antibiotic. Continue with Fluconazole, linezolid, and meropenem. Plan for [address] scan which was done yesterday showed mild pancolitis. Will continue to monitor the patient. We may have to treat her with long course of metronidazole for C. diff. Will reassess again in the morning. Job#: [id number]
[2017-08-01] MEDS ORDERED: MEROPENEM 500 MG VIAL ONE (22:30)
[2017-08-01] MEDS: MEROPENEM 500MG 500 MG in SODIUM CHLORIDE 0.9% 50ML 50 ML IV SCH (22:32)
[2017-08-01] MEDS: FLUCONAZOLE 200 MG/100 ML 100 ML IV SCH (23:00)
[2017-08-02] VITALS (44 sets, daily range): BP systolic 139–182; BP diastolic 68–109
[2017-08-02] MEDS: ALBUTEROL SULF 0.083% NEB SOLN 3 ML NEB NEB SCH ×6 (00:30→19:05)
[2017-08-02] MEDS: METOCLOPRAMIDE HCL 10 MG TAB PEG SCH ×4 (01:59→18:17)
[2017-08-02] MEDS: HYDRALAZINE HCL 25 MG TAB PO SCH ×4 (01:59→18:17)
[2017-08-02] MEDS: SODIUM CHLORIDE 0.9% 1000ML 1,000 ML IV SCH (03:57)
[2017-08-02] MEDS: DEXTROSE 5%/0.45% SOD CHL 1,000 ML IV SCH (04:00)
[2017-08-02 05:20] LABS: BASOPHILS # (AUTO) 0.1 (0.0-0.1); BASOPHILS % 0.7 % (0.0-1.0); EOSINOPHILS # (AUTO) 1.8 (0.0-0.4); EOSINOPHILS % 12.2 % (0.0-6.0); HEMATOCRIT 27.8 % (34.2-44.1); HEMOGLOBIN 8.9 g/dL (12.0-16.0); LYMPHOCYTES # (AUTO) 1.7 (1.0-3.2); LYMPHOCYTES % 11.4 % (18.0-39.1); MEAN CORPUSCULAR HEMOGLOBIN 26.6 pg (28-32); MONOCYTES # (AUTO) 1.7 (0.2-0.8); MONOCYTES % 11.2 % (4.4-11.3); NEUTROPHILS # (AUTO) 9.4 (2.1-6.9); NEUTROPHILS % 63.7 % (38.7-80.0); PLATELET COUNT 256 x10e3/uL (140-360); RED BLOOD COUNT 3.35 x10e6/uL (3.6-5.1); RED CELL DISTRIBUTION WIDTH 18.4 % (11.7-14.4)
[2017-08-02 05:42] LABS: ANION GAP 12.1 mmol/L (8-16); CALCIUM 9.1 mg/dL (8.4-10.2); CREATININE, SERUM 1.49 mg/dL (0.57-1.11); POTASSIUM 4.1 mmol/L (3.5-5.1)
[2017-08-02] MEDS: METRONIDAZOLE 500 MG TAB PEG SCH ×3 (06:00→22:00)
[2017-08-02] MEDS: INSULIN REGULAR, HUMAN 100 UNIT/1 ML 3ML VIAL SQ SCH ×4 (06:00→18:20)
[2017-08-02 07:00] LABS: EOSINOPHILS % (MANUAL) 7 % (0-7); LYMPHOCYTES % (MANUAL) 15 % (19-48); MONOCYTES % (MANUAL) 9 % (3.4-9.0); NEUTROPHILS % (MANUAL) 69 % (40-74)
[2017-08-02 07:03] LABS: ANISOCYTOSIS SLIGHT; PLATELET ESTIMATE ADEQUATE; PLATELET MORPHOLOGY COMMENT FEW LARGE; RBC MORPHOLOGY COMMENT NORMAL
[2017-08-02] MEDS: IPRATROPIUM BROMIDE 0.02% 2.5 ML NEB NEB SCH ×3 (07:20→19:05)
[2017-08-02] MEDS: CALCIUM ACETATE 667 MG GELCAP PEG SCH ×3 (07:29→18:17)
[2017-08-02] MEDS: ASCORBIC ACID 500 MG TAB PEG SCH (08:02)
[2017-08-02] MEDS: AMLODIPINE BESYLATE 10 MG TAB PEG SCH (08:02)
[2017-08-02] MEDS: LABETALOL HCL 200 MG TAB PO SCH ×2 (08:02→18:17)
[2017-08-02] MEDS: FAMOTIDINE 20 MG TAB PO SCH ×2 (08:02→21:00)
[2017-08-02] MEDS: COLLAGENASE OINTMENT 30 GM TUBE TP SCH (08:02)
[2017-08-02] MEDS: LEVETIRACETAM ORAL SOLUTION 500 MG/5 ML SOLN PEG SCH ×2 (08:02→21:00)
[2017-08-02] MEDS: ZINC SULFATE 220 MG CAP PEG SCH (08:02)
--- NOTE | 2017-08-02 08:26 | Progress Note ---
DATE: August 02, 2017 TIME OF SERVICE: 7:40 a.m. OVERNIGHT: No change. Remains off insulin drip. REVIEW OF SYSTEMS: Unobtainable. VITAL SIGNS: Reviewed. OBJECTIVE GENERAL: A tired-appearing woman resting in bed. HEENT: Anicteric. She has a tracheostomy in place. CARDIOVASCULAR: Normal S1 and S2. She had a 3/6 systolic ejection murmur. LUNGS: Moderate breath sounds. ABDOMEN: Soft. PEG in place. EXTREMITIES: No edema. SKIN: Dry. PSYCHIATRIC: Cannot be assessed. NEUROLOGIC: Not interactive. LABS: Reviewed. MEDICATIONS: Reviewed. ASSESSMENT AND PLAN: This is a 37-year-old woman. 1. Sepsis. 2. Pneumonia. 3. Urinary tract infection with streptococcus species. 4. Moderate to severe microcytic anemia. 5. Persistent vegetative state. 6. End-stage renal disease on hemodialysis. 7. Diabetes mellitus, type 2. 8. Dysphagia with percutaneous endoscopic gastrostomy tube in place. 9. Hypertension. 10. Proctocolitis. PLAN 1. Continue broad-spectrum antibiotics, meropenem, oral Flagyl and linezolid. Continue IV fluconazole. 2. Continue Keppra. 3. Blood pressure is uncontrolled. Will titrate the beta irvin up. 4. Continue vent support. The patient is on 400 mL volume control. 5. Continue insulin regimen and Accu-Cheks q.6. 6. Continue Pepcid q.12. 7. Continue to follow blood counts. 8. Change clonidine to 0.1 mg q.8 instead of b.i.d. 9. Continue dialysis, will defer to nephrology. 10. Leukocytosis persistent, today 14,800. 11. Continue Flagyl for proctocolitis. 12. Critical care time more than 35 minutes. 13. Discharge planning to skilled facility. 14. Physical therapy consult and case management consult. Job#: [id number]
[2017-08-02] MEDS: LINEZOLID 600 MG/D5W 300ML 300 ML IV SCH ×2 (11:20→22:00)
--- NOTE | 2017-08-02 12:23 | Progress Note ---
DATE: August 01, 2017 TIME: 4 p.m. OVERNIGHT: No change. The patient off insulin drip. REVIEW OF SYSTEMS: Unobtainable. PHYSICAL EXAMINATION VITAL SIGNS: Have been reviewed. GENERAL: A tired-appearing woman resting in bed. HEENT: Anicteric. She has a tracheostomy in place with vent support. CARDIOVASCULAR: Normal S1 and S2. She has a 3/6 systolic ejection murmur. LUNGS: Moderate breath sounds. ABDOMEN: Soft and nontender. PEG in place. EXTREMITIES: No edema. SKIN: Dry. PSYCHIATRIC: Unable to assess. NEUROLOGIC: Somnolent. Not interactive. LABS: Reviewed. MEDICATIONS: Reviewed. ASSESSMENT: This is a 37-year-old woman with: 1. Sepsis. 2. Pneumonia. 3. Jpimi-ib-dbnluyi respiratory failure. 4. End-stage renal disease, on hemodialysis. 5. Anoxic brain injury/persistent vegetative state. 6. Dysphagia with percutaneous endoscopic gastrostomy tube in place. 7. Diabetes mellitus, type 2. 8. Microcytic anemia. 9. Urinary tract infection with streptococcus species. PLAN 1. Insulin drip off. 2. Continue IV fluconazole, meropenem, linezolid, and oral Flagyl. 3. Continue blood pressure control. 4. Diabetes control. Insulin is off now. 5. Continue Keppra. 6. Continue vent support. 7. Continue dialysis. 8. Supportive care in the ICU. 9. Critical care time and chart review more than 35 minutes. Job#: [id number] AMBIKA
[2017-08-02] MEDS: CLONIDINE HCL 0.1 MG TAB PO SCH ×2 (13:06→22:00)
--- NOTE | 2017-08-02 13:07 | Diagnostic Imaging Report ---
EXAM: CHEST SINGLE (PORTABLE), AP 1 view INDICATION: Ventilated COMPARISON: AP view of the chest July 31, 2017 FINDINGS: LINES/TUBES: Tracheostomy appears retracted, which may be positional. Stable position of left approach Tesio catheter. LUNGS: Stable vascular congestion and bibasilar atelectasis. PLEURA: No effusions or pneumothorax. HEART AND MEDIASTINUM: Stable appearance. BONES AND SOFT TISSUES: No acute findings. IMPRESSION: The tracheostomy appears retracted since prior exam. This may be positional. Please correlate with physical appearance. Otherwise, no significant interval change in appearance of the chest. Signed by: Dr. Ella Guadarrama M.D. on 08/02/2017 6:22 AM
[2017-08-02] MEDS: INSULIN DETEMIR 100 UNIT/ML PEN SQ SCH (21:00)
[2017-08-02] MEDS: MEROPENEM 500MG 500 MG in SODIUM CHLORIDE 0.9% 50ML 50 ML IV SCH (22:15)
[2017-08-02] MEDS: FLUCONAZOLE 200 MG/100 ML 100 ML IV SCH (23:00)
[2017-08-03] VITALS (39 sets, daily range): BP systolic 128–180; BP diastolic 75–97
[2017-08-03] MEDS ORDERED: MEROPENEM 500 MG VIAL ONE ×2 (00:26→20:11)
[2017-08-03] MEDS ORDERED: SODIUM CHLORIDE 0.9% 250ML 250 ML ONE (00:38)
[2017-08-03] MEDS: INSULIN REGULAR, HUMAN 100 UNIT/1 ML 3ML VIAL SQ SCH ×5 (02:15→23:59)
[2017-08-03] MEDS: METRONIDAZOLE 500 MG TAB PEG SCH ×3 (05:33→21:21)
[2017-08-03] MEDS: CLONIDINE HCL 0.1 MG TAB PO SCH ×3 (05:33→21:21)
[2017-08-03] MEDS: METOCLOPRAMIDE HCL 10 MG TAB PEG SCH ×5 (05:33→23:56)
[2017-08-03] MEDS: HYDRALAZINE HCL 25 MG TAB PO SCH ×5 (05:33→23:56)
--- NOTE | 2017-08-03 06:36 | Progress Note ---
DATE: August 03, 2017 TIME: 6:11 a.m. OVERNIGHT: No events. The patient is on 40% FIO2 by trach collar. REVIEW OF SYSTEMS: Unobtainable. PHYSICAL EXAMINATION VITAL SIGNS: Reviewed. GENERAL: A tired-appearing woman resting in bed. HEENT: Anicteric. She has tracheostomy in place. CARDIOVASCULAR: Normal S1 and S2. A 3/6 systolic murmur. LUNGS: Moderate breath sounds. ABDOMEN: Soft and nontender. PEG in place. EXTREMITIES: No edema. SKIN: Dry. PSYCHIATRIC: Unable to assess. NEUROLOGIC: Somnolent. Not interactive. LABS: Reviewed. MEDICATIONS: Reviewed. ASSESSMENT: A 37-year-old woman with: 1. Sepsis. 2. Pneumonia. 3. Eintx-tj-fujnzxu respiratory failure. 4. End-stage renal disease, on hemodialysis. 5. Anoxic brain injury/persistent vegetative state. 6. Dysphagia with percutaneous endoscopic gastrostomy tube in place. 7. Diabetes mellitus, type 2. 8. Microcytic anemia. 9. Urinary tract infection with vancomycin-resistant enterococcus. PLAN 1. Continue diabetes management. 2. Continue IV fluconazole, meropenem, linezolid, and Flagyl. Plan for 14 days of antibiotics per infectious disease. 3. Continue to monitor blood pressure. 4. Continue Keppra. 5. Continue trach collar 40% FIO2 oxygen. 6. Continue dialysis. Decide whether the patient needs a tunneled catheter. Will discuss with nephrology today. The patient still not making urine. Trotter was removed. 7. Leukocytosis, persistent. Will follow up labs. 8. Wide excursion of glucose from 105-451. Will titrate medications and adjust as appropriate. 9. Once decision is made whether the patient needs a tunneled catheter for dialysis or not, the patient can be transitioned back to skilled facility. Job#: [id number] AMBIKA
[2017-08-03] MEDS: LEVETIRACETAM ORAL SOLUTION 500 MG/5 ML SOLN PEG SCH ×2 (08:33→20:43)
[2017-08-03] MEDS: FAMOTIDINE 20 MG TAB PO SCH ×2 (08:33→20:43)
[2017-08-03] MEDS: ASCORBIC ACID 500 MG TAB PEG SCH (08:33)
[2017-08-03] MEDS: LABETALOL HCL 200 MG TAB PO SCH ×2 (08:33→17:00)
[2017-08-03] MEDS: CALCIUM ACETATE 667 MG GELCAP PEG SCH ×3 (08:33→17:43)
[2017-08-03] MEDS: AMLODIPINE BESYLATE 10 MG TAB PEG SCH (08:33)
[2017-08-03] MEDS: ZINC SULFATE 220 MG CAP PEG SCH (08:33)
[2017-08-03] MEDS: COLLAGENASE OINTMENT 30 GM TUBE TP SCH (08:34)
[2017-08-03] MEDS: ACETAMINOPHEN 325 MG TAB PEG PRN (08:34)
[2017-08-03] MEDS: ALBUTEROL SULF 0.083% NEB SOLN 3 ML NEB NEB SCH ×5 (09:10→19:15)
[2017-08-03] MEDS: IPRATROPIUM BROMIDE 0.02% 2.5 ML NEB NEB SCH ×4 (09:10→19:15)
[2017-08-03] MEDS: LINEZOLID 600 MG/D5W 300ML 300 ML IV SCH ×2 (10:37→21:21)
[2017-08-03] MEDS: DEXTROSE 50% SYRINGE 50 ML IV PRN (11:34)
--- NOTE | 2017-08-03 12:16 | Diagnostic Imaging Report ---
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 Wu Pre-operative diagnosis: Poor intravenous access, hospital acquired pneumonia Post-operative diagnosis: Poor intravenous access, hospital acquired pneumonia, chronic occlusion right internal jugular vein Conscious Sedation: None Additional Medications: Lidocaine 1% for local anesthesia Fluoroscopy time: 0.1 minute Frontal Air Kerma: 0.85 mGy Contrast used: 0 Estimated blood loss: Minimal Specimens: None Implants: 7 Grenadian 20 cm triple-lumen central venous catheter DISCUSSION: Informed consent was obtained from the next of kin and documented in the medical record after discussion of risks and benefits. The patient was placed in the supine position on the fluoroscopic table. Preliminary sonographic evaluation of the right cervical region showed no discernible right internal jugular vein, compatible with chronic occlusion presumably related to multiple prior hemodialysis catheter procedures. The decision was therefore made to proceed with right common femoral central venous catheter placement. Preliminary sonographic evaluation of the right groin showed patency of the right common femoral vein, evidenced by compressibility. The overlying skin was prepped and draped in the standard sterile fashion. 1% lidocaine was infiltrated into the skin and subcutaneous tissues for local anesthesia. Then, under continuous sonographic guidance, an 18-gauge singlewall needle was used to access the right common femoral vein. A permanent sonographic image was stored in the medical record. A 0.0 3 5-in. wire was advanced centrally under fluoroscopic guidance. The needle was removed and the tract was dilated. Then, a 7 Grenadian, 20 cm triple-lumen central venous catheter was advanced over the wire to full depth. The wire was removed and the catheter tip was positioned in the right common iliac vein. Each lumen was tested and showed adequate bidirectional flow. The catheter was flushed with sterile saline, secured to the skin with monofilament nylon suture, and covered with a sterile dressing. The patient tolerated the procedure well without immediate complication. FINDINGS: 1. Chronically occluded right internal jugular vein. 2. Patent right common femoral vein. IMPRESSION: Successful placement of a 7 Grenadian, 20 cm triple-lumen central venous catheter by a right common femoral approach under sonographic and fluoroscopic guidance. Signed by: Dr. Michoacano Wu M.D. on 08/03/2017 12:13 PM
[2017-08-03] MEDS: INSULIN DETEMIR 100 UNIT/ML PEN SQ SCH (20:44)
[2017-08-03] MEDS: MEROPENEM 500MG 500 MG in SODIUM CHLORIDE 0.9% 50ML 50 ML IV SCH (21:21)
[2017-08-03] MEDS: FLUCONAZOLE 200 MG/100 ML 100 ML IV SCH (23:56)
[2017-08-04] VITALS (17 sets, daily range): BP systolic 133–172; BP diastolic 78–97
[2017-08-04] MEDS: ALBUTEROL SULF 0.083% NEB SOLN 3 ML NEB NEB SCH ×3 (03:30→07:46)
[2017-08-04] MEDS: METRONIDAZOLE 500 MG TAB PEG SCH (05:19)
[2017-08-04] MEDS: HYDRALAZINE HCL 25 MG TAB PO SCH (05:19)
[2017-08-04] MEDS: CLONIDINE HCL 0.1 MG TAB PO SCH (05:19)
[2017-08-04] MEDS: METOCLOPRAMIDE HCL 10 MG TAB PEG SCH (05:19)
[2017-08-04] MEDS: INSULIN REGULAR, HUMAN 100 UNIT/1 ML 3ML VIAL SQ SCH (06:00)
[2017-08-04] MEDS: DEXTROSE 50% SYRINGE 50 ML IV PRN (06:35)
--- NOTE | 2017-08-04 07:35 | Progress Note ---
DATE: August 04, 2017 TIME: 7 a.m. OVERNIGHT: Elevated blood pressure. REVIEW OF SYSTEMS: Unobtainable. VITAL SIGNS: Reviewed. PHYSICAL EXAMINATION GENERAL: A tired-appearing woman resting in bed. HEENT: She has a tracheostomy in place. CARDIOVASCULAR: Normal S1 and S2. She has a subclavian left-sided catheter for dialysis that is not tunneled. LUNGS: Coarse breath sounds throughout. ABDOMEN: Soft. PEG in place. EXTREMITIES: No edema. SKIN: Dry. PSYCHIATRIC: Unable to assess. NEUROLOGIC: Not interactive. LABS: Reviewed. MEDICATIONS: Reviewed. ASSESSMENT: A 37-year-old woman with: 1. Sepsis. 2. Pneumonia. 3. Uktfx-to-yfpdnlg respiratory failure. 4. Vancomycin-resistant enterococcus urinary tract infection. 5. End-stage renal disease on hemodialysis. 6. Anoxic brain injury/persistent vegetative state. 7. Dysphagia with percutaneous endoscopic gastrostomy tube in place. 8. Diabetes mellitus, type 2. 9. Uncontrolled hypertension. PLAN 1. Check hemoglobin A1c and will check lipid panel. 2. Will control blood pressure. Will titrate clonidine up to 0.2 mg q.8 h. 3. Will obtain hemodialysis chair time placement. 4. Awaiting tunneled catheter placement decision by nephrology. 5. Continue trach collar at 35% FiO2. 6. Continue Keppra. 7. Continue dialysis. 8. Glucose control is improving. 9. Discharge planning. Job#: [id number]
[2017-08-04] MEDS: IPRATROPIUM BROMIDE 0.02% 2.5 ML NEB NEB SCH ×2 (07:46)
[2017-08-04 08:18] LABS: BASOPHILS # (AUTO) 0.1 (0.0-0.1); BASOPHILS % 0.5 % (0.0-1.0); EOSINOPHILS # (AUTO) 3.2 (0.0-0.4); EOSINOPHILS % 18.3 % (0.0-6.0); HEMATOCRIT 29.2 % (34.2-44.1); HEMOGLOBIN 9.6 g/dL (12.0-16.0); LYMPHOCYTES % 11.8 % (18.0-39.1); MEAN CORPUSCULAR HGB CONC 32.9 g/dL (31-35); MONOCYTES # (AUTO) 1.3 (0.2-0.8); MONOCYTES % 7.4 % (4.4-11.3); NEUTROPHILS # (AUTO) 10.6 (2.1-6.9); NEUTROPHILS % 61.1 % (38.7-80.0); PLATELET COUNT 221 x10e3/uL (140-360); RED BLOOD COUNT 3.56 x10e6/uL (3.6-5.1); RED CELL DISTRIBUTION WIDTH 19.1 % (11.7-14.4)
[2017-08-04 08:30] LABS: ANION GAP 11.1 mmol/L (8-16); CALCIUM 8.9 mg/dL (8.4-10.2); CREATININE, SERUM 2.1 mg/dL (0.57-1.11); POTASSIUM 5.1 mmol/L (3.5-5.1)
[2017-08-04] MEDS: LEVETIRACETAM ORAL SOLUTION 500 MG/5 ML SOLN PEG SCH (09:00)
[2017-08-04] MEDS: COLLAGENASE OINTMENT 30 GM TUBE TP SCH (09:00)
[2017-08-04] MEDS: CALCIUM ACETATE 667 MG GELCAP PEG SCH (10:02)
[2017-08-04] MEDS: AMLODIPINE BESYLATE 10 MG TAB PEG SCH (10:02)
[2017-08-04] MEDS: ASCORBIC ACID 500 MG TAB PEG SCH (10:03)
[2017-08-04] MEDS: ZINC SULFATE 220 MG CAP PEG SCH (10:03)
[2017-08-04] MEDS: FAMOTIDINE 20 MG TAB PO SCH (10:03)
[2017-08-04] MEDS: LINEZOLID 600 MG/D5W 300ML 300 ML IV SCH (10:04)
[2017-08-04] MEDS: LABETALOL HCL 200 MG TAB PO SCH (10:04)
[2017-08-04 10:34] LABS: EOSINOPHILS % (MANUAL) 19 % (0-7); LYMPHOCYTES % (MANUAL) 14 % (19-48); MONOCYTES % (MANUAL) 4 % (3.4-9.0); NEUTROPHILS % (MANUAL) 63 % (40-74)
[2017-08-04 10:35] LABS: ANISOCYTOSIS SLIG; HYPOCHROMASIA SLIGHT; POIKILOCYTOSIS SLIGHT
[2017-08-04 10:38] LABS: PLATELET ESTIMATE ADEQUATE; RBC MORPHOLOGY COMMENT NORMAL
[2017-08-04 10:39] LABS: PLATELET MORPHOLOGY COMMENT NORMAL
[2017-08-04] MEDS ORDERED: CLONIDINE HCL 0.1 MG TAB PO SCH (14:00)
[2017-08-04] MEDS ORDERED: CLONIDINE HCL 0.2 MG TAB PO SCH (14:00)
--- NOTE | 2017-08-05 11:23 | Discharge Summary ---
PRINCIPAL DIAGNOSES 1. Sepsis. 2. Pneumonia. 3. Wgtnq-dh-amofgnh respiratory failure. 4. Vancomycin-resistant enterococcus urinary tract infection. 5. Anoxic brain injury/persistent vegetative state. 6. Dysphagia with percutaneous endoscopic gastrostomy tube. 7. Diabetes mellitus, type 2. Hemoglobin A1c 5.2, LDL 50. 8. Uncontrolled hypertension. SECONDARY DIAGNOSIS: Diabetes mellitus, type 2. CHIEF COMPLAINT: Pneumonia with sepsis. HISTORY OF PRESENT ILLNESS: A 37-year-old woman developing pneumonia with sepsis. Refer to the H and P for further details. HOSPITAL COURSE: The patient was found to have pneumonia and sepsis and treated with antibiotics. Required ventilator support with wwknc-db-gxxnxjc respiratory failure, and subsequently transitioned to trach collar. She had vancomycin-resistant enterococcus urinary tract infection treated with antibiotics. End-stage renal disease, on hemodialysis and anoxic brain injury with persistent vegetative state. Diabetes mellitus, type 2. Hemoglobin A1c was 5.2. The patient had uncontrolled hypertension, which medication was titrated. The patient was started on hemodialysis. Has a tunneled catheter. Received dialysis. Was discharged. DISCHARGE MEDICATIONS: Per electronic medical record. FOLLOWUP 1. Primary care doctor in 1 week. 2. Nephrology as directed. 3. Infectious disease as directed. DISCHARGE LOCATION: Skilled facility [facility]. CONDITION ON DISCHARGE: Improved and stable. FERNANDO SALDANA MD Job#: [id number] ID
== END 2017-08-04 11:54 | DRG 871 ==
LOC: ER 19:50 → ERHOLD 22:28 → MED/SURG2 07-30 00:20 → ICU 07-31 11:16
PROVIDERS: ADMIT Internal Medicine; ATTEND Internal Medicine
PROC: 02HV33Z Insertion of Infusion Device into Superior Vena Cava, Percutaneous Approach (ICD-10-PCS; 2017-07-30)
PROC: 5A1D70Z Performance of Urinary Filtration, Intermittent, Less than 6 Hours Per Day (ICD-10-PCS; 2017-07-30)
PROC: 5A1945Z Respiratory Ventilation, 24-96 Consecutive Hours (ICD-10-PCS; principal; 2017-07-31)
PROC: 0B21XFZ Change Tracheostomy Device in Trachea, External Approach (ICD-10-PCS; principal; 2017-07-31)
DX: A41.9 Sepsis, unspecified organism (principal); J96.20 Acute and chronic respiratory failure, unspecified whether with hypoxia or hypercapnia; G93.40 Encephalopathy, unspecified; J15.9 Unspecified bacterial pneumonia; E13.10 Other specified diabetes mellitus with ketoacidosis without coma; N18.6 End stage renal disease; G93.1 Anoxic brain damage, not elsewhere classified; R40.3 Persistent vegetative state; I13.11 Hypertensive heart and chronic kidney disease without heart failure, with stage 5 chronic kidney disease, or end stage renal disease; K51.30 Ulcerative (chronic) rectosigmoiditis without complications; L89.150 Pressure ulcer of sacral region, unstageable; E11.22 Type 2 diabetes mellitus with diabetic chronic kidney disease; Y95 Nosocomial condition; Z99.2 Dependence on renal dialysis; Z93.0 Tracheostomy status; Z93.1 Gastrostomy status; D63.1 Anemia in chronic kidney disease; E83.52 Hypercalcemia; E86.0 Dehydration; T73.0XXA Starvation, initial encounter; B95.5 Unspecified streptococcus as the cause of diseases classified elsewhere; R13.10 Dysphagia, unspecified; Z16.35 Resistance to multiple antimicrobial drugs; Z16.22 Resistance to vancomycin related antibiotics; L89.220 Pressure ulcer of left hip, unstageable
CPT/HCPCS: 36415; 36430; 36556; 36600; 71045; 74176; 74470; 76937; 77001; 80048; 80053; 80061; 81001; 82270; 82550; 82553; 82607; 82746; 82805; 82947; 82948; 83036; 83540; 83605; 83735; 83880; 84100; 84439; 84443; 84466; 84484; 84702; 85025; 85610; 86707; 86803; 86850; 86900; 86920; 87040; 87086; 87186; 87340; 90962; 93005; 94002; 94003; 94640; 96361; 96366; 96367; 96376; 99284; C1751; C1769; J0360; J1450; J1644; J2020; J2185; J3475; J3480; J7030; J7040; J7050; J7799; P9016

== ENCOUNTER 2017-08-16 10:58 | Inpatient (IN) | payer MEDICARE, OTHER ==
[~2017-08-16] VITALS: Ht 157.5 cm; Wt 48.5 kg
[2017-08-16] VITALS (7 sets, daily range): BP systolic 148–163; BP diastolic 75–92
[2017-08-16] MEDS: METRONIDAZOLE 500 MG TAB PEG SCH
[~2017-08-16 10:58] MED LIST: ACETAMINOPHEN650 M1 PEG; AMLODIPINE BESY10 MG PEG; ASCORBIC ACID500 MG PEG; CEFTAZIDIM1 GM/50 ML IV; CLONIDINE HCL0.2 MG PEG; DIFLUCAN150 MG PEG; DULCOLAX5 MG PEG; FAMOTIDINE20 MG PO; FERROUS SULFAT325 MG PEG; HYDRALAZINE HCL25 MG PO; LABETALOL HCL200 MG PEG; LACTULOSE20 GM/30 M PEG; LANTUS 3ML100 UNITS/ SC; LEVETIRACETAM500 MG PEG; METOCLOPRAMIDE10 MG PEG; METRONIDAZOLE500 MG PEG; NEPHRO-VITE TABL1 EA PEG; ZINC SULFATE220 MG PEG; phoslo PEG
--- OUTSIDE RECORDS SUMMARY | 2017-08-16 11:00 | XMS REPORT | Continuity of Care Document ---
Author Author [facility] Organization [facility] Address [address] [place] [address] Phone Unavailable Care Team Providers Care Chief Yeoman Name Role Phone ROMAN SHAHID MD PCP Insurance Providers Guarantor Maximilian Delgado Address [address] [place] [address] Email NONE Payer [facility] [employer] Policy Number [id number] Subscriber's Name Maximilian Delgado Relationship 18 Self / Same As Patient Group Number [id number] Effective Date 17 Advance Directives Directive Response Recorded Date/Time Does the patient have an advance directive? No 07/30/17 1:10am If yes, is advance directive on file with [facility]? No 07/30/17 1:10am If not on file with [facility] will patient provide a copy? Yes 07/30/17 1:10am Do you have a Directive to Physician? No 07/29/17 10:29pm Do you have a Medical Power of Smoke Room Operator? No 07/29/17 10:29pm Do you have an out of hospital Do Not Resuscitate Order? No 03/16/18 10:29pm Do you have any special needs we should be aware of? No 07/29/17 10:29pm Do you have a support person here with you today? No 07/29/17 10:29pm Did patient receive Notice of Privacy Practices? Yes 07/29/17 10:29pm Did patient receive patient rights and responsibilities? Yes 07/29/17 10:29pm Problems Medical Problem Onset Date Status Hospital-acquired pneumonia Unknown Medications Current Home Medications Medication Dose Units Route Directions Days Qty Instructions Start Date Acetaminophen 650 Mg Tablet 650 Mg Peg Tube Every 4 Hours as needed for Elevated Temperature Amlodipine Besylate 10 Mg Tablet 10 Mg Peg Tube Daily 30 Tab Ascorbic Acid 500 Mg Tablet 500 Mg Peg Tube Daily 30 Tab Bisacodyl (Dulcolax) 5 Mg Tablet.dr 10 Mg Peg Tube [place] as needed for Constipation Ceftazidime Pentahydrate/D5w (Ceftazidime 1 Gm Piggyback) 1 Gm/50 Ml Piggyback 2 Gm Intraven T,,Sa Clonidine Hcl 0.2 Mg Tablet 0.2 Mg Peg Tube Tue,Tue,Tue,Tue Famotidine 20 Mg Tab 20 Mg Oral Daily 30 Tab Ferrous Sulfate 325 Mg Tablet 325 Mg Peg Tube Three Times A Day Fluconazole (Diflucan) 150 Mg Tablet 150 Mg Peg Tube ,Sat Folic Acid/Cyanocob/Pyridoxine (Nephro-Be Tablet) 1 Ea Tab 1 Each Peg Tube Daily 30 Tab Hydralazine Hcl 25 Mg Tab 50 Mg Oral Every 6 Hours Insulin Glargine (Lantus 3ML Pen) 100 Units/1 Ml Inj 35 Units Subcutaneously Bedtime Labetalol Hcl 200 Mg Tablet 600 Mg Peg Tube Morrison,Tue,Tue,Fri 60 Tab Lactulose 20 Gm/30 Ml Solution 30 Ml Peg Tube Twice A Day as needed for Constipation Levetiracetam 500 Mg Tablet 100 Mg Peg Tube Every 12 Hours Metoclopramide Hcl 10 Mg Tablet 5 Mg Peg Tube Every 6 Hours Metronidazole 500 Mg Tablet 500 Mg Peg Tube Every 8 Hours Phoslo 667 Mg Peg Tube Three Times A Day Zinc Sulfate 220 Mg Tablet 220 Mg Peg Tube Daily 30 Cap Social History Social History Problem Response Recorded Date/Time Onset Date Status Hx Psychiatric Problems No 07/30/2017 1:10am Not Applicable Not Applicable Smoking Status Start Date Stop Date Never Smoker Hospital Discharge Instructions No hospital discharge instruction information available. Plan of Care Discharge Date 08/04/17 11:54am Disposition TRANSFER ALF Prescriptions See Medication Section Functional Status Query Response Date Recorded FUNCTIONAL STATUS . August 02, 2017 11:16am Assistive Devices None July 30, 2017 1:10am Ambulation Ability Total Assistance July 30, 2017 1:10am Toileting Ability Total Assistance August 03, 2017 7:00pm Allergies, Adverse Reactions, Alerts No known allergies. Immunizations No immunization information available. Vital Signs Acute Vital Signs Vital Response Date/Time Temperature (Fahrenheit) 97.4 degrees F (97.6 - 99.5) 08/04/2017 8:15am Pulse Pulse Rate (adult) 86 bpm (60 - 90) 08/04/2017 10:30am Respiratory Rate 16 bpm (12 - 24) 08/04/2017 8:15am Blood Pressure 133/81 mm Hg 08/04/2017 10:30am Height 5 ft 2 in 07/29/2017 8:07pm Weight 122 lb 08/02/2017 8:05am Body Mass Index 22.3 kg/m^2 08/02/2017 8:05am Results Laboratory Results Test Name Result Units Flags Reference Collection Date/Time Result Date/ Time Comments Activated Partial Thromboplast Time 38.7 seconds H 23.8-35.5 07/20/2017 4 :38am 07/20/2017 5:02am White Blood Count 17.26 x10e3/uL H 4.8-10.8 08/04/2017 8:10am 2017 8:22am Red Blood Count 3.56 x10e6/uL L 3.6-5.1 08/04/2017 8:10am 08/04/2017 8: 22am Hemoglobin 9.6 g/dL L 12.0-16.0 08/04/2017 8:10am 08/04/2017 8:22am Hematocrit 29.2 % L 34.2-44.1 08/04/2017 8:10am 08/04/2017 8:22am Mean Corpuscular Volume 82.0 fL 81-99 08/04/2017 8:10am 08/04/2017 8: 22am Mean Corpuscular Hemoglobin 27.0 pg L 28-32 08/04/2017 8:10am 2017 8:22am Mean Corpuscular Hemoglobin Concent 32.9 g/dL 31-35 08/04/2017 8:08/04/2017 8:22am Red Cell Distribution Width 19.1 % H 11.7-14.4 08/04/2017 8:2017 8:22am Platelet Count 221 x10e3/uL 140-360 08/04/2017 8:08/04/2017 8: 22am Neutrophils (%) (Auto) 61.1 % 38.7-80.0 08/04/2017 8:08/04/2017 8: 22am Lymphocytes (%) (Auto) 11.8 % L 18.0-39.1 08/04/2017 8:08/04/2017 8 :22am Monocytes (%) (Auto) 7.4 % 4.4-11.3 08/04/2017 8:08/04/2017 8: 22am Eosinophils (%) (Auto) 18.3 % H 0.0-6.0 08/04/2017 8:08/04/2017 8: 22am Basophils (%) (Auto) 0.5 % 0.0-1.0 08/04/2017 8:08/04/2017 8:22am IM GRANULOCYTES % 0.9 % 0.0-1.0 08/04/2017 8:08/04/2017 8:22am Neutrophils # (Auto) 10.6 H 2.1-6.9 08/04/2017 8:08/04/2017 8: 22am Lymphocytes # (Auto) 2.0 1.0-3.2 08/04/2017 8:08/04/2017 8:22am Monocytes # (Auto) 1.3 H 0.2-0.8 08/04/2017 8:08/04/2017 8:22am Eosinophils # (Auto) 3.2 H 0.0-0.4 08/04/2017 8:08/04/2017 8: 22am Basophils # (Auto) 0.1 0.0-0.1 08/04/2017 8:08/04/2017 8:22am Absolute Immature Granulocyte (auto 0.16 x10e3/uL H 0-0.1 08/04/2017 8: 08/04/2017 8:22am Differential Total Cells Counted 100 08/04/2017 8:10am 08/04/2017 10:39am Neutrophils % (Manual) 63 % 40-74 08/04/2017 8:10am 08/04/2017 10:39am Lymphocytes % (Manual) 14 % L 19-48 08/04/2017 8:10am 08/04/2017 10: 39am Monocytes % (Manual) 4 % 3.4-9.0 08/04/2017 8:10am 08/04/2017 10:39am Eosinophils % (Manual) 19 % H 0-7 08/04/2017 8:10am 08/04/2017 10:39am Platelet Estimate ADEQUATE 08/04/2017 8:10am 08/04/2017 10:39am Platelet Morphology Comment NORMAL 08/04/2017 8:10am 08/04/2017 10: 39am Hypochromasia SLIGHT 08/04/2017 8:10am 08/04/2017 10:39am Poikilocytosis SLIGHT 08/04/2017 8:10am 08/04/2017 10:39am Anisocytosis SLIG 08/04/2017 8:10am 08/04/2017 10:39am Red Cell Morphology Comment NORMAL 08/04/2017 8:10am 08/04/2017 10: 39am Prothrombin Time 15.3 seconds H 11.9-14.5 07/30/2017 10:20pm 07/30/2017 10:38pm Prothromb Time International Ratio 1.31 07/30/2017 10:20pm 2017 10:38pm Oral Anticoagulant Therapy INR Values: 1. Low Intensity Therapy 1.5 - 2.0 2. Moderate Intensity Therapy 2.0 - 3.0 3. High Intensity Therapy(1) 2.5 - 3.5 4. High Intensity Therapy(2) 3.0 - 4.0 5. Panic Value INR > 5.0 Urine Color YELLOW YELLOW 07/31/2017 9:55am 07/31/2017 11:33am Urine Clarity CLOUDY H CLEAR 07/31/2017 9:55am 07/31/2017 11:33am Urine Specific [place] 1.015 1.010-1.025 07/31/2017 9:55am 2017 11:33am Urine pH 8 H 5 - 7 07/31/2017 9:55am 07/31/2017 11:33am Urine Leukocyte Esterase 2+ H NEGATIVE 07/31/2017 9:55am 07/31/2017 11 :33am Urine Nitrite POSITIVE H NEGATIVE 07/31/2017 9:55am 07/31/2017 11: 33am Urine Protein 3+ H NEGATIVE 07/31/2017 9:55am 07/31/2017 11:33am Urine Glucose (UA) NEGATIVE NEGATIVE 07/31/2017 9:55am 07/31/2017 11: 33am Urine Ketones 1+ H NEGATIVE 07/31/2017 9:55am 07/31/2017 11:33am Urine Urobilinogen 0.2 mg/dL 0.2 - 1 07/31/2017 9:55am 07/31/2017 11: 33am Urine Bilirubin NEGATIVE NEGATIVE 07/31/2017 9:55am 07/31/2017 11: 33am Urine Blood 3+ H NEGATIVE 07/31/2017 9:55am 07/31/2017 11:33am Urine WBC >50 /HPF H 0-5 07/31/2017 9:55am 07/31/2017 11:41am Urine RBC 21-50 /HPF H 0-5 07/31/2017 9:55am 07/31/2017 11:41am Urine Bacteria MANY /HPF H NONE 07/31/2017 9:55am 07/31/2017 11:41am Urine Epithelial Cells FEW /LPF NONE 07/31/2017 9:55am 07/31/2017 11: 41am Urine Amorphous Sediment FEW FEW 07/31/2017 9:55am 07/31/2017 11: 41am Urine Mucus MODERATE H RARE 07/31/2017 9:55am 07/31/2017 11:41am Sodium Level 133 mmol/L L 136-145 08/04/2017 8:10am 08/04/2017 8:34am Potassium Level 5.1 mmol/L 3.5-5.1 08/04/2017 8:10am 08/04/2017 8:34am Chloride Level 97 mmol/L L 98-107 08/04/2017 8:10am 08/04/2017 8:34am Carbon Dioxide Level 30 mmol/L H 22-08/04/2017 8:10am 08/04/2017 8: 34am Anion Gap 11.1 mmol/L 8-16 08/04/2017 8:10am 08/04/2017 8:34am Blood Urea Nitrogen 21 mg/dL 7-26 08/04/2017 8:10am 08/04/2017 8:34am Creatinine 2.10 mg/dL H 0.57-1.11 08/04/2017 8:10am 08/04/2017 8:34am BUN/Creatinine Ratio 10 6-25 08/04/2017 8:10am 08/04/2017 8:34am Estimat Glomerular Filtration Rate 32 ML/MIN L 60- 08/04/2017 8:10am 8:34am Ranges were taken from the National Kidney Disease Education Program and the National Kid[employer] Foundation literature. Reference ranges: 60 or greater: Normal 16-59 (for 3 consecutive months): Chronic kidney disease 15 or less: Kidney failure Glucose Level 66 mg/dL L 74-118 08/04/2017 8:10am 08/04/2017 8:34am Calcium Level 8.9 mg/dL 8.4-10.2 08/04/2017 8:10am 08/04/2017 8:34am Bedside Glucose 183 mg/dL H 70-120 08/03/2017 8:38pm 08/03/2017 8:47pm Meter ID: [id number] Hemoglobin A1c Percent 5.2 % 4.0-7.0 08/04/2017 8:10am 08/04/2017 8: 24am Lactic Acid Level 11.5 MG/DL 4.5-19.8 07/31/2017 9:58am 07/31/2017 10: 39am Phosphorus Level 1.1 MG/DL L 2.3-4.7 08/01/2017 4:45am 08/01/2017 5: 16am Magnesium Level 1.7 MG/DL 1.3-2.1 08/01/2017 8:45am 08/01/2017 9:20am Iron Level 25 ug/dL L 50-170 07/31/2017 5:58am 07/31/2017 9:57am Total Iron Binding Capacity 108 ug/dL L 261-478 07/31/2017 5:58am 2017 9:57am Percent Iron Saturation 23 % 15-50 07/31/2017 5:58am 07/31/2017 9:57am Transferrin 77 mg/dL L 180-382 07/31/2017 5:58am 07/31/2017 9:57am Total Bilirubin 0.3 mg/dL 0.2-1.2 07/29/2017 8:35pm 07/29/2017 9:09pm Aspartate Amino Transf (AST/SGOT) 24 IU/L 5-34 07/29/2017 8:35pm 2017 9:09pm Alanine Aminotransferase (ALT/SGPT) 13 IU/L 0-55 07/29/2017 8:35pm 9:09pm Total Protein 5.7 g/dL L 6.5-8.1 07/29/2017 8:35pm 07/29/2017 9:09pm Albumin 2.4 g/dL L 3.5-5.0 07/29/2017 8:35pm 07/29/2017 9:09pm Globulin 3.3 g/dL 2.3-3.5 07/29/2017 8:35pm 07/29/2017 9:09pm Albumin/Globulin Ratio 0.7 L 0.8-2.0 07/29/2017 8:35pm 07/29/2017 9: 09pm Alkaline Phosphatase 111 IU/L 40-150 07/29/2017 8:35pm 07/29/2017 9: 09pm Triglycerides Level 63 MG/DL 0-149 08/04/2017 8:10am 08/04/2017 8:46am Cholesterol Level 124 MD/DL 0-199 08/04/2017 8:10am 08/04/2017 8:46am Less than 200 mg/dL Low Risk 201 - 239 mg/dL Borderline Risk 240 mg/dl and greater High Risk LDL Cholesterol 50 MG/DL L 60-130 08/04/2017 8:10am 08/04/2017 8:46am HDL Cholesterol 61 MG/DL H 40-60 08/04/2017 8:10am 08/04/2017 8:46am Cholesterol/HDL Ratio 2.0 L 3.0-3.6 08/04/2017 8:10am 08/04/2017 8: 46am B-Type Natriuretic Peptide 326.2 pg/mL H 0-100 07/31/2017 5:58am 2017 7:04am Creatine Kinase 37 IU/L 29-168 07/30/2017 10:20pm 07/30/2017 10:51pm Creatine Kinase MB 2.40 ng/mL 0-5.0 07/30/2017 10:20pm 07/30/2017 10: 51pm Troponin I 0.025 ng/mL 0-0.300 07/30/2017 10:20pm 07/30/2017 10:51pm Vitamin B12 Level 1310 pg/mL H 213-816 07/31/2017 5:58am 07/31/2017 8: 18am Folate 19.7 ng/mL H 7.0-15.4 07/31/2017 5:58am 07/31/2017 8:18am Free Thyroxine 1.23 ng/dL 0.9-1.8 07/31/2017 5:58am 07/31/2017 9:57am Thyroid Stimulating Hormone (TSH) 2.601 uIU/mL 0.350-4.940 07/31/2017 5: 58am 07/31/2017 9:57am Human Chorionic Gonadotropin, Qual NEGATIVE NEGATIVE 07/31/2017 4: 20pm 07/31/2017 5:39pm Arterial Blood pH 7.39 7.31-7.41 07/31/2017 11:23am 07/31/2017 12: 50pm Arterial Blood Partial Pressure CO2 22 mmHg L 41-51 07/31/2017 11:23am 07/31/2017 12:50pm Arterial Blood Partial Pressure O2 247 mmHg H 80-105 07/31/2017 11:23am 07/31/2017 12:50pm Arterial Blood HCO3 12 mmol/L L 23-28 07/31/2017 11:23am 07/31/2017 12: 50pm Arterial Blood Base Excess -13.0 mmol/L L -2 - 3 07/31/2017 11:23am 12:50pm Arterial Blood Oxygen Saturation 100.0 % H 95-98 07/31/2017 11:23am 12:50pm Hepatitis Be Antibody Negative Negative 07/30/2017 9:34am 08/01/2017 11:46pm Performed at: [address] [id number] [place] Worker: Sandip Hair MD, Phone: [phone] Hepatitis B Surface Antigen Negative 07/30/2017 9:34am 08/02/2017 9 :31am Hepatitis C Antibody <0.1 07/30/2017 9:34am 08/02/2017 9:31am Reference Range: 0.0 - 0.9 s/co ratio Negative: < 0.8 Indeterminate: 0.8 - 0.9 Positive: > 0.9 The CDC recommends that a positive HCV antibody result be followed up with a HCV Nucleic Acid Amplification test ([id number]). [facility] [address] [address] Dir: Ric Cook MD For inquiries, the physician may contact Branch: [phone] Lab: [phone] Stool Occult Blood POSITIVE H NEGATIVE 08/02/2017 6:30am 08/02/2017 9: 03am Microbiology Results Procedure Source Organism/Result Collection Date/Time Result Date/Time Result Status Blood Culture Blood NO GROWTH AFTER 5 DAYS, FINAL REPORT 07/29/2017 8:35pm 08/03/2017 8:48pm Final Urine Culture Urine,Catheterized ENTEROCOCCUS FAECIUM-VRE 07/31/2017 9: 55am 08/02/2017 9:35am Final Procedures Procedure Status Date Provider(s) Ultrasound guidance for vascular access Active 07/31/[address] of abdomen and pelvis without contrast Active 07/31/17 SHAYLA WEI MD Encounters Encounter Location Arrival/Admit Date Discharge/Depart Date Attending Provider Discharged Inpatient [facility] 07/29/17 10:28pm 11:54am ROMAN SHAHID MD Departed Emergency Room [facility] 07/20/17 4:30am 6:47am JOYCE JIMÉNEZ MD
[2017-08-16 12:10] LABS: BASOPHILS # (AUTO) 0.1 (0.0-0.1); BASOPHILS % 0.6 % (0.0-1.0); EOSINOPHILS # (AUTO) 1.1 (0.0-0.4); EOSINOPHILS % 11.8 % (0.0-6.0); HEMATOCRIT 31.4 % (34.2-44.1); LYMPHOCYTES # (AUTO) 1.3 (1.0-3.2); LYMPHOCYTES % 13.2 % (18.0-39.1); MEAN CORPUSCULAR HEMOGLOBIN 26.7 pg (28-32); MEAN CORPUSCULAR HGB CONC 31.8 g/dL (31-35); MONOCYTES # (AUTO) 0.8 (0.2-0.8); MONOCYTES % 8.3 % (4.4-11.3); NEUTROPHILS # (AUTO) 6.2 (2.1-6.9); NEUTROPHILS % 65.4 % (38.7-80.0); PLATELET COUNT 376 x10e3/uL (140-360); RED BLOOD COUNT 3.74 x10e6/uL (3.6-5.1)
[2017-08-16 12:23] LABS: INR 1.16; PROTHROMBIN TIME 13.9 seconds (11.9-14.5)
[2017-08-16 12:24] LABS: PARTIAL THROMBOPLASTIN TIME 33.3 seconds (23.8-35.5)
[2017-08-16 12:31] LABS: ALBUMIN 2.6 g/dL (3.5-5.0); ALBUMIN/GLOBULIN RATIO 0.9 (0.8-2.0); ANION GAP 26.4 mmol/L (8-16); CALCIUM 10.1 mg/dL (8.4-10.2); CREATININE, SERUM 3.9 mg/dL (0.57-1.11); POTASSIUM 5.4 mmol/L (3.5-5.1)
[2017-08-16 12:49] LABS: CLARITY,URINE SL CLOUDY (CLEAR); COLOR,URINE YELLOW (YELLOW); LEUKOCYTE ESTERASE ,URINE NEGATIVE (NEGATIVE); NITRITE,URINE NEGATIVE (NEGATIVE)
[2017-08-16 12:50] LABS: BILIRUBIN,URINE 1+ (NEGATIVE); KETONES,URINE 2+ (NEGATIVE); PROTEIN,URINE DIPSTICK 2+ (NEGATIVE); URINE UROBILINOGEN 0.2 mg/dL (0.2 - 1)
--- NOTE | 2017-08-16 13:10 | Diagnostic Imaging Report ---
PROCEDURE: A single AP view of the chest. COMPARISON: Patients [facility], , CHEST SINGLE (PORTABLE), 08/02/2017, 5:44. INDICATIONS: PNEUMONIA FINDINGS: Lines/tubes: Tracheostomy tube in place. There is a left IJ twin Tesio hemodialysis catheters with tips overlying the innominate vein. Lungs: Mild pulmonary congestion. No consolidation. Pleura: There is no pleural effusion or pneumothorax. Heart and mediastinum: The heart and the mediastinum are unremarkable. Bones: No acute bony abnormality. IMPRESSION: Mild pulmonary vascular congestion. Eldon Díaz D.O. Dictated by: Eldon Díaz D.O. on 08/16/2017 at 13:11 Electronically approved by: Eldon Díaz D.O. on 08/16/2017 at 13:11
[2017-08-16 13:20] LABS: BACTERIA,URINE RARE /HPF; EPITHELIAL CELLS,URINE FEW /LPF; RENAL EPITHELIAL CELLS,URINE RARE; TRANSITIONAL EPI CELLS,URINE RARE
[2017-08-16] MEDS ORDERED: INSULIN REGULAR, HUMAN 3ML VL 1 UNIT in SODIUM CHLORIDE 0.9% 100 ML IV SCH ×2 (14:15)
[2017-08-16] MEDS ORDERED: POTASSIUM CHLORIDE 20MEQ/100ML 200 ML IV PRN (14:15)
[2017-08-16] MEDS ORDERED: LACTULOSE SYRUP 20 GM/30 ML UDC PEG ONE (14:15)
[2017-08-16] MEDS ORDERED: MAGNESIUM SULF 1GRAM/DEXTROSE 100 ML IV PRN (14:15)
[2017-08-16] MEDS ORDERED: INSULIN DETEMIR 100 UNIT/ML PEN SQ PRN (14:15)
[2017-08-16] MEDS ORDERED: SOD POLYSTYRENE SULFONATE SUSP 15 GM/60 ML BTL PEG ONE (14:15)
[2017-08-16] MEDS ORDERED: INSULIN REGULAR, HUMAN 3ML VL 100 UNIT in SODIUM CHLORIDE 0.9% 100 ML IV SCH ×2 (14:30)
[2017-08-16] MEDS ORDERED: ALTEPLASE RECOMBINANT 2 MG/2 ML VIAL IV ONE (15:30)
[2017-08-16] MEDS: SODIUM CHLORIDE 0.9% 1000ML 1,000 ML IV SCH ×3 (15:33→22:13)
[2017-08-16] MEDS ORDERED: NON-FORMULARY MEDICATION (Acetaminophen 650 MG) PEG PRN (16:15)
[2017-08-16] MEDS ORDERED: CEFTAZIDIME PENTAHYDRATE IV SCH (16:15)
[2017-08-16] MEDS ORDERED: BISACODYL 5 MG TAB EC PO PRN (16:15)
[2017-08-16] MEDS ORDERED: FLUCONAZOLE 150 MG PEG SCH (16:15)
[2017-08-16] MEDS ORDERED: LACTULOSE SYRUP 20 GM/30 ML UDC PEG PRN (16:15)
[2017-08-16] MEDS ORDERED: D5W IV SCH (16:15)
[2017-08-16] MEDS ORDERED: [UNRECOGNIZED DRUG - OTHER] IV SCH (16:15)
[2017-08-16 17:16] LABS: ANION GAP 22.2 mmol/L (8-16); CALCIUM 9.7 mg/dL (8.4-10.2); CREATININE, SERUM 3.96 mg/dL (0.57-1.11); MAGNESIUM 2.1 MG/DL (1.3-2.1); POTASSIUM 4.2 mmol/L (3.5-5.1)
[2017-08-16] MEDS ORDERED: CEFTAZIDIME 2 GM VIAL IV SCH (18:00)
[2017-08-16] MEDS ORDERED: METOCLOPRAMIDE HCL 10 MG TAB PEG SCH (18:00)
[2017-08-16] MEDS: CALCIUM ACETATE 667 MG GELCAP PEG SCH (19:20)
[2017-08-16] MEDS: METOCLOPRAMIDE HCL 10MG/10ML UDC PEG SCH (19:21)
[2017-08-16] MEDS: HYDRALAZINE HCL 25 MG TAB PO SCH (19:21)
--- NOTE | 2017-08-16 20:18 | History and Physical ---
PRIMARY CARE PROVIDER: Dr. Major Arguello at the [facility]. CONSULTING PHYSICIAN: Dr. Tonio Rod. HISTORY OF PRESENT ILLNESS: Ms. 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 The patient was still on peritoneal dialysis, was having leg cramps. and he massaged her legs. The patient has been coughing and unsure if she had an AK or PE, but she had cardiac arrest with severe anoxic brain injury. She has a tracheostomy and PEG and arrives today from [facility] at [facility]. She has been on fluconazole and meropenem for the last several weeks for pneumonia. She had been admitted to [facility] from July 29 to August 04 and had received IV vancomycin and Fortaz initially for the pneumonia, which was switched to IV fluconazole and meropenem per the infectious disease specialist, Dr. Chambers. She was also receiving Zyvox for VRE urinary tract infection. PAST MEDICAL HISTORY: Significant for: 1. 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 2. End-stage renal disease. 3. Longstanding hypertension. 4. Type 1 diabetes diagnosed which was diagnosed at age 7. per previous History and Physical. She had seizures that occurred after the cardiac arrest. The father dies any history of seizures. 5. C. difficile colitis. PAST SURGICAL HISTORY: She has a tracheostomy. A PEG tube placement. She has a left tunneling hemodialysis catheter. Father denies any other history of surgeries. PAST FAMILY HISTORY: The father has hypertension. Her mother has passed and she had hypertension and breast cancer. PAST SOCIAL HISTORY: The patient is a resident at [facility] group home. She has anoxic brain injury and requires assistance with all activities of daily living. She is totally dependent and unresponsive. The patient's father denies any history of smoking, alcohol or illicits. FUNCTIONAL HISTORY: As above. REVIEW OF SYSTEMS: Unobtainable as the patient is nonvocal and nonverbal. ALLERGIES: NO KNOWN DRUG ALLERGIES. MEDICATIONS: Amlodipine besylate 10 mg via PEG tube daily. Ascorbic acid 500 mg via PEG tube daily. Dulcolax 10 mg via PEG tube p.r.n. for constipation. Clonidine 0.2 mg tablet via PEG tube Tuesday, Tuesday, Tuesday and Tuesday. Famotidine 20 mg per PEG tube daily. Ferrous sulfate 325 mg via PEG tube t.i.d. Nephro-Be tablet via PEG tube daily. Hydralazine 50 mg via PEG tube q.6 h. Lantus insulin 35 units subcutaneous nightly. Labetalol 600 mg via PEG tube Tuesday, Tuesday, Tuesday and Tuesday. Lactulose 30 mL via PEG tube b.i.d. p.r.n. constipation. Keppra 100 mg via PEG tube q.12 h. Reglan 5 mg via PEG tube q.6 h. Flagyl 500 mg via PEG tube q.8 h. Zinc sulfate 220 mg tablet via PEG tube daily. Tylenol 650 mg tablet via PEG tube q.6 h. p.r.n. for elevated temperature. Ceftazidime 2 grams IV every Tuesday, and Tuesday after dialysis. Diflucan 150 mg via PEG tube and Tuesday. PhosLo 667 mg via PEG tube t.i.d. PHYSICAL EXAMINATION: PSYCHIATRIC: As above. Patient is unresponsive. Her eyes are open. However, she does not respond to stimulation. She has normal body habitus. Is in no acute distress. VITAL SIGNS: Temperature 97.9, heart rate 76, respirations 18, blood pressure 133/78, oxygen saturation 100%. HEENT: Head is atraumatic. Eyes are anicteric with clear conjunctivae. Ears and nares are without erythema or discharge. Oropharynx is clear. NECK: Supple with no mass or thyromegaly. She has a size 4 tracheostomy. LYMPHATIC SYSTEM: No palpable cervical, axillary or inguinal adenopathy. CARDIOVASCULAR: Heart has a irregularly, irregular rate and rhythm without murmur. She has no peripheral edema. Has no carotid bruit. RESPIRATORY: Respiratory pattern unlabored. Lungs sounds are clear, diminished in the bases. GASTROINTESTINAL: Abdomen soft without organomegaly, masses or tenderness. Bowel sounds times 4 quadrants. She has a functional PEG tube in place. CUTANEOUS: Skin is warm and dry to touch with no rash. She has a stage III decubitus ulcer in the sacral area. MUSCULOSKELETAL: Her joints are in normal alignment without erythema or swelling. She has no calf tenderness. NEUROLOGIC: The patient is a persistent neurovegetative state. She has no spontaneous movement and she is unresponsive to stimulation. LABORATORY AND DIAGNOSTIC DATA: WBC 9.55, hemoglobin 10, hematocrit 31.4, platelets 376,000, neutrophils 65.4%, lymphocytes 13.2%, monocytes 8.3%, eosinophils 11.8%, basophils 0.6%. PT 13.9, INR 1.16, PTT 33.3, sodium 125, potassium 5.4, chloride 85. CO2 19. Anion gap 26.4. BUN 48. Creatinine 3.90, GFR 16. Glucose 794, lactic acid 5.2 and calcium 10.1. Magnesium 2.4. Total bilirubin 0.4, AST 66, ALT 48, alkaline phosphatase 209. B-natriuretic peptide 495.8. Total protein 5.6. Albumin 2.6. Urinalysis today revealed 2+ protein, 2+ glucose, 2+ketones, 1+ bilirubin, negative leukocyte esterases. Negative for nitrites. Chest x-ray completed today showed mild pulmonary vascular congestion. IMPRESSION AND PLAN 1. Diabetic ketoacidosis. The patient is currently on DKA protocol. She is receiving normal saline at 250 mL an hour and insulin at 10 20 units per hour into her right AC peripheral IV. She also has a left subclavian tunneled hemodialysis catheter and a right femoral triple lumen central venous catheter. The distal port works and the other ports do not. Therefore, we will try cath flow to open up the other ports. Once her blood sugar is less than 200, we can change the IV fluids to D5 and 1/2 normal saline at 100 mL an hour. Continue to monitor electrolytes closely. 2. Vancomycin resistant Enterococci urinary tract infection. The patient was originally on Zyvox. Will await the final culture and sensitivity from the urine before adding additional antibiotics. Will go ahead and consult Dr. Chambers with infectious disease. 3. Persistent neurovegetative state, Patient has a tracheostomy and a PEG tube in place. Will hold off on tube feedings for now. Continue oxygen via the trach collar. 4. Recent Clostridium difficile colitis. The patient had been on Flagyl. Currently, RN states that there is no diarrhea. We will recheck for Clostridium difficile toxin of stool. 5. Chronic respiratory failure with tracheostomy. Continue pulmonary support with nebulizer treatments p.r.n. and oxygen. 6. Hypertension with end-stage renal disease. Continue antihypertensives from the [facility] and monitor blood pressure. 7. Type 1 diabetes mellitus with end-stage renal disease. The patient is currently not on tube feeds. Continue insulin drip per DKA protocol for now. 8. End-stage renal disease. Nephrology has been consulted for hemodialysis. 9. Dysphagia with gastrostomy tube. Monitor. 10. Microcytic anemia most likely due to end-stage renal disease. Monitor her hemoglobin and hematocrit. 11. Stage III sacral decubitus ulcer. Continue wound care and nutritional supplements for wound healing. 12. For prophylaxis the patient will be on Pepcid for gastrointestinal prophylaxis and sequential compression devices for DVT prophylaxis. Risk of having DVT is low as she has been bedbound for some time. Dictated by: Markus Mary, Acute Care Nurse Practitioner Job#: [id number]
[2017-08-16 20:34] LABS: ANION GAP 21.7 mmol/L (8-16); CALCIUM 10.5 mg/dL (8.4-10.2); CREATININE, SERUM 3.91 mg/dL (0.57-1.11); MAGNESIUM 2.2 MG/DL (1.3-2.1); POTASSIUM 3.7 mmol/L (3.5-5.1)
[2017-08-16] MEDS: LEVETIRACETAM ORAL SOLUTION 500 MG/5 ML SOLN PEG SCH (20:42)
[2017-08-16] MEDS ORDERED: PHOSLO 667 MG PEG SCH (21:00)
[2017-08-16 21:10] LABS: ABG HCO3 20 mmol/L (23-28); ABG PCO2 31 mmHg (41-51); ABG PH 7.42 (7.31-7.41); ABG PO2 164 mmHg (80-105)
[2017-08-16] MEDS: DEXTROSE 5%/0.45% SOD CHL 1,000 ML IV SCH (22:39)
[2017-08-17] VITALS (93 sets, daily range): BP systolic 135–199; BP diastolic 72–111
[2017-08-17 00:39] LABS: ANION GAP 16.6 mmol/L (8-16); CALCIUM 10.3 mg/dL (8.4-10.2); CREATININE, SERUM 3.79 mg/dL (0.57-1.11); MAGNESIUM 2.4 MG/DL (1.3-2.1); POTASSIUM 3.6 mmol/L (3.5-5.1)
[2017-08-17] MEDS ORDERED: INSULIN REGULAR, HUMAN 3ML VL 100 UNIT in SODIUM CHLORIDE 0.9% 100 ML IV SCH ×2 (01:00)
[2017-08-17] MEDS ORDERED: INSULIN REGULAR, HUMAN 3ML VL 100 UNIT in SODIUM CHLORIDE 0.9% 99 ML IV SCH ×2 (01:00)
[2017-08-17] MEDS: SODIUM CHLORIDE 0.9% 1000ML 1,000 ML IV SCH ×2 (02:13→06:13)
[2017-08-17 03:05] LABS: ANION GAP 15.7 mmol/L (8-16); CALCIUM 9.9 mg/dL (8.4-10.2); CREATININE, SERUM 3.79 mg/dL (0.57-1.11); MAGNESIUM 2.3 MG/DL (1.3-2.1); POTASSIUM 3.7 mmol/L (3.5-5.1)
[2017-08-17] MEDS ORDERED: DEXTROSE 50% SYRINGE 50 ML IV ONE ×3 (03:17→16:20)
[2017-08-17] MEDS: DEXTROSE 5%/0.45% SOD CHL 1,000 ML IV SCH ×2 (04:00→10:13)
[2017-08-17] MEDS: HYDRALAZINE HCL 25 MG TAB PO SCH ×5 (06:00→23:44)
[2017-08-17] MEDS: METOCLOPRAMIDE HCL 10MG/10ML UDC PEG SCH ×5 (06:00→23:44)
[2017-08-17] MEDS: METRONIDAZOLE 500 MG TAB PEG SCH ×3 (06:00→22:00)
[2017-08-17 06:07] LABS: BASOPHILS # (AUTO) 0.1 (0.0-0.1); BASOPHILS % 0.5 % (0.0-1.0); EOSINOPHILS # (AUTO) 2.1 (0.0-0.4); EOSINOPHILS % 20.1 % (0.0-6.0); HEMATOCRIT 27.9 % (34.2-44.1); HEMOGLOBIN 9.3 g/dL (12.0-16.0); LYMPHOCYTES # (AUTO) 1.3 (1.0-3.2); LYMPHOCYTES % 12.5 % (18.0-39.1); MEAN CORPUSCULAR HGB CONC 33.3 g/dL (31-35); MEAN CORPUSCULAR VOLUME 81.1 fL (81-99); MONOCYTES # (AUTO) 1.1 (0.2-0.8); MONOCYTES % 10.7 % (4.4-11.3); NEUTROPHILS # (AUTO) 5.8 (2.1-6.9); NEUTROPHILS % 55.4 % (38.7-80.0); PLATELET COUNT 334 x10e3/uL (140-360); RED BLOOD COUNT 3.44 x10e6/uL (3.6-5.1); RED CELL DISTRIBUTION WIDTH 19.9 % (11.7-14.4)
[2017-08-17] MEDS ORDERED: INSULIN REGULAR, HUMAN 100 UNIT/1 ML 3ML VIAL ONE ×2 (06:24→06:33)
[2017-08-17] MEDS ORDERED: SODIUM CHLORIDE 0.9% 100 ML ONE ×2 (06:25→06:33)
[2017-08-17 06:37] LABS: ALBUMIN 2.3 g/dL (3.5-5.0); ALBUMIN/GLOBULIN RATIO 0.9 (0.8-2.0); ANION GAP 16.9 mmol/L (8-16); CALCIUM 9.6 mg/dL (8.4-10.2); CREATININE, SERUM 3.85 mg/dL (0.57-1.11); MAGNESIUM 2.2 MG/DL (1.3-2.1); POTASSIUM 3.9 mmol/L (3.5-5.1)
[2017-08-17 07:44] LABS: EOSINOPHILS % (MANUAL) 16 % (0-7); LYMPHOCYTES % (MANUAL) 15 % (19-48); MONOCYTES % (MANUAL) 9 % (3.4-9.0); NEUTROPHILS % (MANUAL) 56 % (40-74)
[2017-08-17 07:45] LABS: ANISOCYTOSIS SLIGHT; HYPOCHROMASIA SLIGHT; PLATELET ESTIMATE ADEQUATE; PLATELET MORPHOLOGY COMMENT NORMAL; POIKILOCYTOSIS SLIGHT; RBC MORPHOLOGY COMMENT NORMAL
[2017-08-17] MEDS: LEVETIRACETAM ORAL SOLUTION 500 MG/5 ML SOLN PEG SCH ×2 (08:30→11:20)
[2017-08-17] MEDS ORDERED: INSULIN REGULAR, HUMAN 100 UNITS in SODIUM CHLORIDE 0.45% 100 ML IV PRN ×2 (08:45)
[2017-08-17] MEDS ORDERED: INSULIN REGULAR, HUMAN 100 UNITS in SODIUM CHLORIDE 0.45% 100 ML SQ PRN ×2 (08:45)
[2017-08-17] MEDS ORDERED: CLONIDINE HCL 0.2 MG TAB PEG SCH (09:00)
[2017-08-17] MEDS: AMLODIPINE BESYLATE 10 MG TAB PEG SCH (09:00)
[2017-08-17] MEDS: LABETALOL HCL 200 MG TAB PEG SCH ×2 (09:00→13:30)
[2017-08-17] MEDS: FOLIC ACID/CYANOCOB/PYRIDOXINE TAB PO SCH (09:55)
[2017-08-17] MEDS: ASCORBIC ACID 500 MG TAB PEG SCH (09:55)
[2017-08-17] MEDS: FAMOTIDINE 20 MG TAB PEG SCH (09:55)
[2017-08-17] MEDS: ZINC SULFATE 220 MG CAP PEG SCH (09:55)
[2017-08-17] MEDS: FERROUS SULFATE 325 MG TAB PEG SCH ×4 (09:55→21:00)
[2017-08-17] MEDS: CALCIUM ACETATE 667 MG GELCAP PEG SCH ×3 (09:55→17:30)
[2017-08-17 10:25] LABS: ANION GAP 14.2 mmol/L (8-16); CALCIUM 9.7 mg/dL (8.4-10.2); CREATININE, SERUM 3.87 mg/dL (0.57-1.11); MAGNESIUM 2.2 MG/DL (1.3-2.1); POTASSIUM 3.2 mmol/L (3.5-5.1)
[2017-08-17] MEDS ORDERED: HEPARIN SOD (PORCINE) 1000 UNIT/ML SDV IV PRN (10:45)
[2017-08-17] MEDS ORDERED: MANNITOL 25% 12.5GM/50 ML VIAL IV PRN (10:45)
[2017-08-17] MEDS ORDERED: SODIUM CHLORIDE 0.9% 1000ML 1,000 ML IV PRN (10:45)
[2017-08-17] MEDS ORDERED: ALBUMIN 25% 12.5GM 50 ML IV PRN (10:45)
--- NOTE | 2017-08-17 12:32 | Consultation ---
DATE OF CONSULTATION: REASON FOR CONSULTATION: Concern about sepsis. HISTORY OF PRESENT ILLNESS: She is well known to me. 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 The patient sustained a severe anoxic brain encephalopathy. She was on peritoneal dialysis in April 2017 when she had the incident. The patient has been in a usp since then. The patient had history of cardiac arrest, history of pulmonary embolism, history of anoxic brain injury, status post tracheostomy, status post PEG tube placement. She was recently at [facility] for pneumonia and [facility] and I think she was there for a few days when she was transferred back here. Patient has been recently on fluconazole and meropenem for pneumonia. The patient was at [facility] from July 29 to August 04, received intravenous antibiotic for pneumonia where she was on vancomycin and Fortaz, then switched to fluconazole and meropenem. The patient had also VRE in the urine and she was on linezolid. She is presented now to this hospital with apparently shortness of breath and not doing well. So, she is currently in the intensive care unit. There is no family at the bedside. Patient seemed a little bit comfortable at the present time when I saw her. PAST MEDICAL HISTORY: Diabetes mellitus, end-stage renal disease on peritoneal dialysis, history of brain injury, anoxic brain encephalopathy after cardiac arrest in 2016, end-stage renal disease, hypertension, diabetes mellitus type 1, history of C. diff, and history of pneumonia. PAST SURGICAL HISTORY: Tracheostomy, PEG tube placement, peritoneal dialysis and then left tunneled hemodialysis. ALLERGIES: NKA. SOCIAL HISTORY: No smoking, drug abuse, or alcohol abuse. FAMILY HISTORY: Hypertension. REVIEW OF SYSTEMS: Could not be obtained. LABORATORY DATA: On admission, white count of 9.5, hemoglobin of 10.5. Her sodium 136, potassium 3.9, creatinine 3.85. Her chest x-ray is showing pulmonary congestion. PHYSICAL EXAMINATION GENERAL: She is nonverbal. VITALS: Stable. No fever since admission. HEENT: Normocephalic. NECK: Supple. CHEST: Few rhonchi bilateral coarse. S1 and S2. No S3 or S4. No murmur. ABDOMEN: Soft. Bowel sounds present. No tenderness. EXTREMITIES: No edema. MEDICATION LIST: Reviewed. She is on amlodipine, ascorbic acid, and Dulcolax. I reviewed all her records. IMPRESSION 1. Pneumonia. I think treated, can discontinue antibiotic. 2. History of Clostridium difficile. Continue with metronidazole 500 p.o. q.8. 3. Vancomycin-resistant enterococcus colonization, can observe. 4. Diabetic ketoacidosis. There is no fever at present time. White count is normal. Chest x-ray is negative. Agree with current treatment. 1. Diabetes. 2. Vegetative state. 3. End-stage renal disease. 4. We will follow with you. Job#: [id number] VAS
--- NOTE | 2017-08-17 14:23 | Consultation ---
DATE OF CONSULTATION: August 17, 2017 HISTORY OF PRESENT ILLNESS: Ms. Sara Mason is a 38-year-old female with anoxic brain injury, totally dependent on activities of daily living, in a vegetative state with severe anoxic brain injury. Has a tracheostomy, on dialysis and a PEG tube. She presented with hypoglycemia. Has type 2 diabetes, hypertension, prior cardiac arrest, prior history of substance abuse. Renal consulted for management of kidney failure. ALLERGIES: NO APPARENT DRUG ALLERGIES. PAST MEDICAL HISTORY: Unable to get any history. Patient does not follow any commands. REVIEW OF SYSTEMS: Unable to get review of systems and no family available. CURRENT MEDICATIONS: Include: 1. Amlodipine 10 mg via PEG daily. 2. Ascorbic acid 500 mg via PEG daily. 3. Calcium acetate. 4. PhosLo 667 mg via PEG daily. 5. Clonidine 0.2 mg via PEG. 6. Ceftazidime 2 g IV q. Tuesday and . 7. History of fluconazole. 8. Diflucan 150 mg via PEG tube and Tuesday. 9. Ferrous sulfate. 10. Lactulose. 11. Levetiracetam. 12. Metronidazole 500 mg via PEG q.8 h. She was hyperkalemic yesterday and was given Kayexalate. Today's labs show hemoglobin 9.3 with a potassium 3.2, bicarbonate 27 with a creatinine of 3.87 and magnesium 2.2. SOCIAL HISTORY: Does not smoke or drink. FAMILY HISTORY: Significant for hypertension. PHYSICAL EXAMINATION GENERAL: Patient is lying supine. Awake. Eyes open. Does not follow any commands. VITALS: Blood pressure of 170/90, pulse rate 100, afebrile, respiratory rate 17. Oxygen saturation 97%. Trach collar. HEAD AND NECK: Corneas clear. Oral mucosa dry LUNGS: Harsh vesicular breath sounds, relatively clear. No rales. HEART: S1, S2 audible. ABDOMEN: Otherwise, soft and nontender. PEG tube noted. LOWER EXTREMITIES: No edema. IMPRESSION AND PLAN 1. Hypertension. Dr. Bertrand Temple is following. 2. End-stage renal disease. I will arrange for dialysis. 3. On multiple antibiotics. Defer to Dr. Chambers. 4. Blood pressure elevated. Will titrate blood pressure medications. 5. Volume status appears stable. Please see orders. Job#: [id number]
[2017-08-17] MEDS ORDERED: INSULIN LISPRO 100 UNIT/1 ML 3ML VIAL SQ ONE (14:40)
[2017-08-17 14:57] LABS: FREE T4 (FREE THYROXINE) 1.03 ng/dL (0.9-1.8); THYROID STIMULATING HORMONE 2.591 uIU/mL (0.350-4.940)
--- NOTE | 2017-08-17 15:07 | Consultation ---
DATE OF CONSULTATION: August 17, 2017 ENDOCRINE CONSULTATION Patient of Dr. Rod. Thank you very much for referring this patient. Most of the history is available from the chart. This is a 37-year-old unfortunate black lady who has severe anoxic brain damage. She came to the hospital with a history of high blood sugar in the range of 794. Anion gap was elevated at 26.4. Patient was in diabetic ketoacidosis. Patient has end-stage renal failure. She is on chronic hemodialysis. She has chronic respiratory failure. She is on the trach collar presently. She has dysphagia, on the PEG tube feeds and multiple decubitus ulcers. She has had several hospital admissions in various facilities in the past. Patient is on several medications at home, including insulin. PHYSICAL EXAMINATION GENERAL: Today, the patient responds to painful stimulus. VITALS: Her heart rate is around 78, blood pressure 126/86 mmHg. HEENT: Essentially unremarkable. Thyroid is palpable. Clinically, she is near euthyroid. CHEST: Bilateral vesicular breathing. She has mild bronchospasm. CARDIOVASCULAR: First and 2nd heart sounds. There is no 3rd or 4th heart sounds. Ejection murmur of grade 2/6. Patient has multiple decubitus ulcers. CLINICAL IMPRESSION 1. Diabetes mellitus, type 2, uncontrolled with complications. 2. Diabetic ketoacidosis. 3. Status post anoxic encephalopathy. 4. End-stage renal failure, on chronic hemodialysis. 5. Chronic respiratory failure. 6. Dysphagia, on percutaneous endoscopic gastrostomy. 7. Sacral decubitus ulcers. The plan at this time is to taper off the insulin drip. Monitor the blood sugars closely and adjust insulin dose depending upon the blood sugars. Would also like to review the old records. Thanks for referring this patient. I will be following this patient with you. Job#: [id number] AMBIKA BARROS
[2017-08-17] MEDS ORDERED: INSULIN LISPRO 100 UNIT/1 ML 3ML VIAL SQ SCH ×2 (16:30)
[2017-08-17] MEDS ORDERED: INSULIN DETEMIR 100 UNIT/ML PEN SQ SCH (17:00)
[2017-08-17] MEDS ORDERED: DEXTROSE 50% SYRINGE 50 ML IV PRN (17:45)
[2017-08-17] MEDS: INSULIN REGULAR, HUMAN 100 UNIT/1 ML 3ML VIAL SQ SCH ×2 (18:00→21:33)
[2017-08-17] MEDS ORDERED: CLONIDINE HCL 0.2 MG TAB PO ONE (18:15)
[2017-08-17 21:50] LABS: CREATININE, SERUM 2.41 mg/dL (0.57-1.11)
[2017-08-17] MEDS: ACETAMINOPHEN 325 MG/10 ML UDC PEG PRN (23:54)
[2017-08-18] VITALS (77 sets, daily range): BP systolic 127–212; BP diastolic 75–124
[2017-08-18] MEDS ORDERED: CLONIDINE HCL 0.1 MG/24 HR 1 EA PATCH TOP ONE (00:45)
[2017-08-18] MEDS: LABETALOL HCL 5 MG/ML 20ML VIAL IV PRN ×3 (01:00→04:00)
[2017-08-18] MEDS: INSULIN REGULAR, HUMAN 100 UNIT/1 ML 3ML VIAL SQ SCH ×6 (02:00→15:15)
[2017-08-18 05:20] LABS: BASOPHILS # (AUTO) 0.1 (0.0-0.1); BASOPHILS % 0.5 % (0.0-1.0); EOSINOPHILS # (AUTO) 1.8 (0.0-0.4); EOSINOPHILS % 17.1 % (0.0-6.0); HEMATOCRIT 28.3 % (34.2-44.1); HEMOGLOBIN 9.2 g/dL (12.0-16.0); LYMPHOCYTES # (AUTO) 1.1 (1.0-3.2); LYMPHOCYTES % 10.5 % (18.0-39.1); MEAN CORPUSCULAR HEMOGLOBIN 27.1 pg (28-32); MEAN CORPUSCULAR HGB CONC 32.5 g/dL (31-35); MEAN CORPUSCULAR VOLUME 83.2 fL (81-99); MONOCYTES # (AUTO) 1.1 (0.2-0.8); MONOCYTES % 10.6 % (4.4-11.3); NEUTROPHILS # (AUTO) 6.4 (2.1-6.9); NEUTROPHILS % 60.5 % (38.7-80.0); PLATELET COUNT 235 x10e3/uL (140-360); RED CELL DISTRIBUTION WIDTH 20.9 % (11.7-14.4)
[2017-08-18 05:46] LABS: ANION GAP 17.2 mmol/L (8-16); CALCIUM 9.2 mg/dL (8.4-10.2); CREATININE, SERUM 2.73 mg/dL (0.57-1.11); POTASSIUM 4.2 mmol/L (3.5-5.1)
[2017-08-18] MEDS: METRONIDAZOLE 500 MG TAB PEG SCH ×3 (06:00→22:32)
[2017-08-18] MEDS: HYDRALAZINE HCL 25 MG TAB PO SCH ×3 (06:00→17:55)
[2017-08-18] MEDS: METOCLOPRAMIDE HCL 10MG/10ML UDC PEG SCH ×3 (06:00→18:00)
[2017-08-18 07:53] LABS: ANISOCYTOSIS SLIGHT; EOSINOPHILS % (MANUAL) 19 % (0-7); HYPOCHROMASIA SLIGHT; LYMPHOCYTES % (MANUAL) 9 % (19-48); MONOCYTES % (MANUAL) 6 % (3.4-9.0); MYELOCYTES % (MANUAL) 1 % (0-0); NEUTROPHILS % (MANUAL) 64 % (40-74); PLATELET ESTIMATE ADEQUATE; RBC MORPHOLOGY COMMENT NORMAL
[2017-08-18 07:54] LABS: PLATELET MORPHOLOGY COMMENT NORMAL
[2017-08-18] MEDS: CALCIUM ACETATE 667 MG GELCAP PEG SCH ×3 (08:20→17:00)
[2017-08-18] MEDS: LEVETIRACETAM ORAL SOLUTION 500 MG/5 ML SOLN PEG SCH ×2 (08:30→22:25)
[2017-08-18] MEDS: FERROUS SULFATE 325 MG TAB PEG SCH ×3 (08:49→22:25)
[2017-08-18] MEDS: FAMOTIDINE 20 MG TAB PEG SCH (08:50)
[2017-08-18] MEDS: ZINC SULFATE 220 MG CAP PEG SCH (08:50)
[2017-08-18] MEDS: FOLIC ACID/CYANOCOB/PYRIDOXINE TAB PO SCH (08:50)
[2017-08-18] MEDS: AMLODIPINE BESYLATE 10 MG TAB PEG SCH (08:50)
[2017-08-18] MEDS: ASCORBIC ACID 500 MG TAB PEG SCH (08:51)
[2017-08-18] MEDS ORDERED: CLONIDINE HCL 0.2 MG TAB PEG SCH (09:00)
[2017-08-18] MEDS ORDERED: FLUCONAZOLE 100 MG TAB PEG SCH (09:00)
[2017-08-18] MEDS: CLONIDINE HCL 0.2 MG TAB PEG SCH ×2 (14:26→22:26)
[2017-08-18] MEDS: INSULIN DETEMIR 100 UNIT/ML PEN SQ SCH (17:00)
[2017-08-18] MEDS: CEFEPIME HCL 1 GM VIAL IV SCH (17:45)
[2017-08-19] VITALS (73 sets, daily range): BP systolic 131–194; BP diastolic 69–129
[2017-08-19] MEDS: HYDRALAZINE HCL 25 MG TAB PO SCH ×4 (00:21→22:00)
[2017-08-19] MEDS: METOCLOPRAMIDE HCL 10MG/10ML UDC PEG SCH ×5 (00:21→23:03)
[2017-08-19] MEDS: CEFEPIME HCL 1 GM VIAL IV SCH (04:30)
[2017-08-19 05:54] LABS: BASOPHILS % 0.3 % (0.0-1.0); EOSINOPHILS # (AUTO) 0.7 (0.0-0.4); EOSINOPHILS % 6.6 % (0.0-6.0); HEMOGLOBIN 8.6 g/dL (12.0-16.0); LYMPHOCYTES # (AUTO) 1.6 (1.0-3.2); LYMPHOCYTES % 14.5 % (18.0-39.1); MEAN CORPUSCULAR HEMOGLOBIN 26.4 pg (28-32); MEAN CORPUSCULAR HGB CONC 31.9 g/dL (31-35); MEAN CORPUSCULAR VOLUME 82.8 fL (81-99); MONOCYTES # (AUTO) 1.5 (0.2-0.8); MONOCYTES % 13.9 % (4.4-11.3); NEUTROPHILS # (AUTO) 7.1 (2.1-6.9); NEUTROPHILS % 64.2 % (38.7-80.0); PLATELET COUNT 246 x10e3/uL (140-360); RED BLOOD COUNT 3.26 x10e6/uL (3.6-5.1); RED CELL DISTRIBUTION WIDTH 21.2 % (11.7-14.4)
[2017-08-19 06:18] LABS: ANION GAP 15.3 mmol/L (8-16); CALCIUM 9.7 mg/dL (8.4-10.2); CREATININE, SERUM 3.7 mg/dL (0.57-1.11); MAGNESIUM 2.3 MG/DL (1.3-2.1); POTASSIUM 5.3 mmol/L (3.5-5.1)
[2017-08-19] MEDS: METRONIDAZOLE 500 MG TAB PEG SCH (06:47)
[2017-08-19] MEDS: CLONIDINE HCL 0.2 MG TAB PEG SCH ×3 (06:47→22:00)
[2017-08-19 08:19] LABS: EOSINOPHILS % (MANUAL) 3 % (0-7); LYMPHOCYTES % (MANUAL) 7 % (19-48); MONOCYTES % (MANUAL) 8 % (3.4-9.0); NEUTROPHILS % (MANUAL) 79 % (40-74)
[2017-08-19 08:20] LABS: ANISOCYTOSIS SLIGHT; HYPOCHROMASIA MODERATE; TARGET CELLS FEW
[2017-08-19 08:21] LABS: MICROCYTOSIS SLIGHT; PLATELET ESTIMATE ADEQUATE; PLATELET MORPHOLOGY COMMENT NORMAL; RBC MORPHOLOGY COMMENT NORMAL
[2017-08-19] MEDS: INSULIN DETEMIR 100 UNIT/ML PEN SQ SCH ×2 (08:30→23:57)
[2017-08-19] MEDS: INSULIN REGULAR, HUMAN 100 UNIT/1 ML 3ML VIAL SQ SCH ×3 (08:31→22:00)
[2017-08-19] MEDS: CALCIUM ACETATE 667 MG GELCAP PEG SCH ×3 (08:31→18:39)
[2017-08-19] MEDS: AMLODIPINE BESYLATE 10 MG TAB PEG SCH (08:32)
[2017-08-19] MEDS: FAMOTIDINE 20 MG TAB PEG SCH (08:32)
[2017-08-19] MEDS: FERROUS SULFATE 325 MG TAB PEG SCH ×3 (08:32→21:00)
[2017-08-19] MEDS: ASCORBIC ACID 500 MG TAB PEG SCH (08:33)
[2017-08-19] MEDS: FOLIC ACID/CYANOCOB/PYRIDOXINE TAB PO SCH (08:33)
[2017-08-19] MEDS: ZINC SULFATE 220 MG CAP PEG SCH (08:33)
[2017-08-19] MEDS: LABETALOL HCL 200 MG TAB PEG SCH (08:35)
[2017-08-19] MEDS: LEVETIRACETAM ORAL SOLUTION 500 MG/5 ML SOLN PEG SCH ×2 (08:35→23:01)
--- NOTE | 2017-08-19 10:51 | Progress Note ---
DATE: Ms. Mason remains in the ICU. She is on hemodialysis. Her mental status is basically unchanged and noncommunicative. She is still running fever. Her temperature is 100.1 right now. Her T-max has 101. REVIEW OF SYSTEMS: Could not be obtained. Her other vitals are within normal limits. Her blood culture and sputum culture is still pending. LAB: Her white count is 11.02, hemoglobin 8.6, hematocrit 26, and platelets of 246,000. She has elevated eosinophils of 6.6, elevated monocytes of 13.9. Her C. diff is negative. Chest x-ray which was done showed mild pulmonary congestion. PHYSICAL EXAMINATION GENERAL: She is otherwise non-changed and nonverbal. HEENT: Anicteric. NECK: Supple. CHEST: Few rhonchi and coarse. ABDOMEN: Soft. IMPRESSION 1. Fever with eosinophil and monocytosis, very concerning and that is probably drug-related, probably Keppra: I do not think it is infectious. Will discuss with the attending. Will follow. 2. Other medical problem of end-stage renal disease, on hemodialysis. 3. Hypertension. 4. Status post anoxic brain injury. 5. Status post tracheostomy. 6. Decubitus ulcer, all stable now. Job#: [id number] AMBIKA
[2017-08-19] MEDS: COLLAGENASE OINTMENT 30 GM TUBE TP SCH (15:11)
[2017-08-19] MEDS ORDERED: GLYCOPYRROLATE INJ 0.2 MG/ML VIAL IV PRN (15:30)
[2017-08-19] MEDS: EPOETIN ALFA 10000 UNIT/ML VIAL SC SCH (16:38)
[2017-08-20] VITALS (56 sets, daily range): BP systolic 154–210; BP diastolic 75–99
[2017-08-20 00:39] LABS: ANION GAP 17.2 mmol/L (8-16); CREATININE, SERUM 2.65 mg/dL (0.57-1.11); POTASSIUM 4.2 mmol/L (3.5-5.1)
[2017-08-20] MEDS ORDERED: SODIUM CHLORIDE 0.45% 100 ML 100 ML IV ONE (01:15)
[2017-08-20] MEDS: INSULIN REGULAR, HUMAN 3ML VL 100 UNIT in SODIUM CHLORIDE 0.45% 100 ML 100 ML IV SCH ×2 (01:30)
[2017-08-20 05:20] LABS: BASOPHILS % 0.4 % (0.0-1.0); HEMATOCRIT 25.6 % (34.2-44.1); HEMOGLOBIN 8.1 g/dL (12.0-16.0); LYMPHOCYTES # (AUTO) 1.8 (1.0-3.2); LYMPHOCYTES % 19.2 % (18.0-39.1); MEAN CORPUSCULAR HEMOGLOBIN 27.1 pg (28-32); MEAN CORPUSCULAR HGB CONC 31.6 g/dL (31-35); MEAN CORPUSCULAR VOLUME 85.6 fL (81-99); MONOCYTES # (AUTO) 1.5 (0.2-0.8); MONOCYTES % 15.9 % (4.4-11.3); PLATELET COUNT 200 x10e3/uL (140-360); RED BLOOD COUNT 2.99 x10e6/uL (3.6-5.1); RED CELL DISTRIBUTION WIDTH 21.2 % (11.7-14.4)
[2017-08-20 05:34] LABS: ANION GAP 11.9 mmol/L (8-16); CALCIUM 9.4 mg/dL (8.4-10.2); CREATININE, SERUM 2.62 mg/dL (0.57-1.11); MAGNESIUM 2.1 MG/DL (1.3-2.1); PHOSPHORUS 1.3 MG/DL (2.3-4.7); POTASSIUM 3.9 mmol/L (3.5-5.1)
[2017-08-20] MEDS: CLONIDINE HCL 0.2 MG TAB PEG SCH ×3 (06:14→21:17)
[2017-08-20] MEDS: HYDRALAZINE HCL 25 MG TAB PO SCH ×3 (06:15→21:17)
[2017-08-20] MEDS: METOCLOPRAMIDE HCL 10MG/10ML UDC PEG SCH ×3 (06:15→17:30)
[2017-08-20] MEDS: INSULIN REGULAR, HUMAN 100 UNIT/1 ML 3ML VIAL SQ SCH ×3 (06:20→22:43)
[2017-08-20] MEDS: ZINC SULFATE 220 MG CAP PEG SCH (08:34)
[2017-08-20] MEDS: ASCORBIC ACID 500 MG TAB PEG SCH (08:34)
[2017-08-20] MEDS: FOLIC ACID/CYANOCOB/PYRIDOXINE TAB PO SCH (08:34)
[2017-08-20] MEDS: FERROUS SULFATE 325 MG TAB PEG SCH ×3 (08:34→20:07)
[2017-08-20] MEDS: FAMOTIDINE 20 MG TAB PEG SCH (08:34)
[2017-08-20] MEDS: CALCIUM ACETATE 667 MG GELCAP PEG SCH ×3 (08:34→16:26)
[2017-08-20] MEDS: LEVETIRACETAM ORAL SOLUTION 500 MG/5 ML SOLN PEG SCH ×3 (08:34→20:27)
[2017-08-20] MEDS: AMLODIPINE BESYLATE 10 MG TAB PEG SCH (08:34)
[2017-08-20] MEDS: COLLAGENASE OINTMENT 30 GM TUBE TP SCH (08:35)
[2017-08-20] MEDS: INSULIN DETEMIR 100 UNIT/ML PEN SQ SCH ×2 (08:35→20:39)
[2017-08-20] MEDS ORDERED: SODIUM CHLORIDE 0.9% 1000ML 2,000 ML IV PRN (09:15)
[2017-08-20] MEDS ORDERED: SODIUM CHLORIDE 0.9% 250ML 500 ML IV PRN (09:15)
[2017-08-20] MEDS ORDERED: HEPARIN SOD (PORCINE) 1000 UNIT/ML SDV IV PRN (09:15)
[2017-08-20] MEDS: LABETALOL HCL 5 MG/ML 20ML VIAL IV PRN (16:27)
[2017-08-21] VITALS (47 sets, daily range): BP systolic 117–200; BP diastolic 64–95
[2017-08-21] MEDS: METOCLOPRAMIDE HCL 10MG/10ML UDC PEG SCH ×5 (00:20→23:17)
[2017-08-21] MEDS: INSULIN REGULAR, HUMAN 3ML VL 100 UNIT in SODIUM CHLORIDE 0.45% 100 ML 100 ML IV SCH ×2 (03:50)
[2017-08-21 05:55] LABS: BASOPHILS % 0.3 % (0.0-1.0); EOSINOPHILS # (AUTO) 1.1 (0.0-0.4); EOSINOPHILS % 9.4 % (0.0-6.0); HEMATOCRIT 26.7 % (34.2-44.1); HEMOGLOBIN 8.4 g/dL (12.0-16.0); LYMPHOCYTES # (AUTO) 1.8 (1.0-3.2); LYMPHOCYTES % 16.2 % (18.0-39.1); MEAN CORPUSCULAR HEMOGLOBIN 26.4 pg (28-32); MEAN CORPUSCULAR HGB CONC 31.5 g/dL (31-35); MONOCYTES # (AUTO) 1.4 (0.2-0.8); MONOCYTES % 12.8 % (4.4-11.3); NEUTROPHILS # (AUTO) 6.8 (2.1-6.9); NEUTROPHILS % 60.4 % (38.7-80.0); PLATELET COUNT 202 x10e3/uL (140-360); RED BLOOD COUNT 3.18 x10e6/uL (3.6-5.1); RED CELL DISTRIBUTION WIDTH 20.8 % (11.7-14.4)
[2017-08-21] MEDS: HYDRALAZINE HCL 25 MG TAB PO SCH ×3 (06:14→21:22)
[2017-08-21] MEDS: CLONIDINE HCL 0.2 MG TAB PEG SCH ×3 (06:14→21:22)
[2017-08-21] MEDS: INSULIN REGULAR, HUMAN 100 UNIT/1 ML 3ML VIAL SQ SCH ×5 (06:15→21:42)
[2017-08-21 06:26] LABS: CALCIUM 9.2 mg/dL (8.4-10.2); CREATININE, SERUM 1.96 mg/dL (0.57-1.11); MAGNESIUM 1.8 MG/DL (1.3-2.1)
[2017-08-21] MEDS: LABETALOL HCL 5 MG/ML 20ML VIAL IV PRN (07:30)
[2017-08-21] MEDS: LEVETIRACETAM ORAL SOLUTION 500 MG/5 ML SOLN PEG SCH ×2 (08:45→21:04)
[2017-08-21] MEDS: AMLODIPINE BESYLATE 10 MG TAB PEG SCH ×2 (09:00→21:21)
[2017-08-21] MEDS: ZINC SULFATE 220 MG CAP PEG SCH (09:00)
[2017-08-21] MEDS: FOLIC ACID/CYANOCOB/PYRIDOXINE TAB PO SCH (09:00)
[2017-08-21] MEDS: FAMOTIDINE 20 MG TAB PEG SCH (09:00)
[2017-08-21] MEDS: CALCIUM ACETATE 667 MG GELCAP PEG SCH ×3 (09:00→16:43)
[2017-08-21] MEDS: FERROUS SULFATE 325 MG TAB PEG SCH ×3 (09:00→21:22)
[2017-08-21] MEDS: LABETALOL HCL 200 MG TAB PEG SCH (09:00)
[2017-08-21] MEDS: ASCORBIC ACID 500 MG TAB PEG SCH (09:00)
[2017-08-21] MEDS: INSULIN DETEMIR 100 UNIT/ML PEN SQ SCH ×2 (09:00→21:40)
[2017-08-21] MEDS: COLLAGENASE OINTMENT 30 GM TUBE TP SCH (09:00)
[2017-08-21] MEDS ORDERED: CEFEPIME 1GM/NS 0.9% 50 ML 50 ML IV SCH (12:45)
[2017-08-21] MEDS: CEFEPIME HCL 1 GM VIAL IV SCH (16:41)
[2017-08-22] VITALS (70 sets, daily range): BP systolic 130–207; BP diastolic 68–95
[2017-08-22] MEDS: CEFEPIME HCL 1 GM VIAL IV SCH (00:57)
[2017-08-22] MEDS: INSULIN REGULAR, HUMAN 100 UNIT/1 ML 3ML VIAL SQ SCH ×7 (00:57→23:40)
[2017-08-22] MEDS: METOCLOPRAMIDE HCL 10MG/10ML UDC PEG SCH ×4 (05:18→23:42)
[2017-08-22] MEDS: CLONIDINE HCL 0.2 MG TAB PEG SCH ×3 (05:18→21:18)
[2017-08-22] MEDS: HYDRALAZINE HCL 25 MG TAB PO SCH ×3 (05:18→21:18)
[2017-08-22] MEDS: INSULIN DETEMIR 100 UNIT/ML PEN SQ SCH ×2 (09:00→20:26)
[2017-08-22] MEDS: AMLODIPINE BESYLATE 10 MG TAB PEG SCH ×2 (09:26→20:13)
[2017-08-22] MEDS: ZINC SULFATE 220 MG CAP PEG SCH (09:26)
[2017-08-22] MEDS: LEVETIRACETAM ORAL SOLUTION 500 MG/5 ML SOLN PEG SCH ×2 (09:27→20:13)
[2017-08-22] MEDS: FAMOTIDINE 20 MG TAB PEG SCH (09:27)
[2017-08-22] MEDS: FERROUS SULFATE 325 MG TAB PEG SCH ×3 (09:27→20:13)
[2017-08-22] MEDS: FOLIC ACID/CYANOCOB/PYRIDOXINE TAB PO SCH (09:27)
[2017-08-22] MEDS: CALCIUM ACETATE 667 MG GELCAP PEG SCH ×3 (09:37→17:30)
[2017-08-22] MEDS: ASCORBIC ACID 500 MG TAB PEG SCH (09:37)
[2017-08-22] MEDS: LABETALOL HCL 200 MG TAB PEG SCH (10:30)
[2017-08-22] MEDS ORDERED: HEPARIN SOD (PORCINE) 1000 UNIT/ML SDV IV PRN (10:30)
[2017-08-22] MEDS ORDERED: ALTEPLASE RECOMBINANT 2 MG/2 ML VIAL ONE ×2 (13:15→13:16)
[2017-08-22] MEDS ORDERED: ALTEPLASE RECOMBINANT 2 MG/2 ML VIAL IV NR (13:15)
--- NOTE | 2017-08-22 14:21 | Consultation ---
DATE OF CONSULTATION: August 20, 2017, in the intensive care unit at 9:30 in the morning. NEUROLOGICAL CONSULTATION A patient of Dr. Major Arguello. REASON FOR CONSULTATION: Hypoxic encephalopathy. HISTORY OF PRESENT ILLNESS: This is a 37-year-old female who in April 2017 suffered a cardiorespiratory arrest. She suffered a severe anoxic brain injury, and [facility]. At this time, the patient is being admitted because of infections. PAST HISTORY: Besides the cardiorespiratory, she has long-standing history of diabetes mellitus type 2, long-standing hypertension. At the present time, for end-stage renal disease. She has at the present a tracheostomy and PEG tube placement. Record of labs has been reviewed. REVIEW OF SYSTEMS: Unable to perform because of mental status. GENERAL PHYSICAL EXAMINATION VITAL SIGNS: Blood pressure was 178/85 with pulse of 80. She was afebrile. LUNGS: Clear to auscultation. HEART: Regular. NEUROLOGIC: She is on ventilator. Pupils are small with sluggish reaction. Doll's movements are absent. Corneal reflex is present but depressed. Limbs flaccid. No response to pain stimulation. LABORATORY WORKUP: Has been reviewed in detail. IMPRESSION 1. Vegetative state secondary to cardiac arrest. 2. End-stage renal failure. 3. Hypertension. RECOMMENDATION: We have discussed with the family. She has been taking levetiracetam 1000 mg twice a day, but she never had fits. They stated that when she had the cardiac arrest they put her on it just to prevent seizures, but I do not see any evidence that she has any evidence of seizures. So, we are going to recommend to decrease the levetiracetam to 500 mg twice a day. Prognosis poor. Job#: [id number] EV
[2017-08-22] MEDS: COLLAGENASE OINTMENT 30 GM TUBE TP SCH (18:18)
[2017-08-23] VITALS (8 sets, daily range): BP systolic 140–183; BP diastolic 74–95
[2017-08-23] MEDS: LABETALOL HCL 5 MG/ML 20ML VIAL IV PRN ×2 (00:46→16:29)
[2017-08-23] MEDS: INSULIN REGULAR, HUMAN 100 UNIT/1 ML 3ML VIAL SQ SCH ×7 (03:40→21:44)
[2017-08-23] MEDS: CLONIDINE HCL 0.2 MG TAB PEG SCH (05:23)
[2017-08-23] MEDS: HYDRALAZINE HCL 25 MG TAB PO SCH ×3 (05:23→21:25)
[2017-08-23] MEDS: METOCLOPRAMIDE HCL 10MG/10ML UDC PEG SCH ×4 (05:23→23:21)
[2017-08-23 06:36] LABS: BASOPHILS # (AUTO) 0.1 (0.0-0.1); BASOPHILS % 0.6 % (0.0-1.0); EOSINOPHILS # (AUTO) 1.1 (0.0-0.4); EOSINOPHILS % 10.2 % (0.0-6.0); HEMOGLOBIN 8.2 g/dL (12.0-16.0); LYMPHOCYTES # (AUTO) 1.6 (1.0-3.2); MEAN CORPUSCULAR HEMOGLOBIN 26.5 pg (28-32); MEAN CORPUSCULAR HGB CONC 31.5 g/dL (31-35); MEAN CORPUSCULAR VOLUME 83.9 fL (81-99); MONOCYTES # (AUTO) 1.4 (0.2-0.8); MONOCYTES % 12.9 % (4.4-11.3); NEUTROPHILS # (AUTO) 6.4 (2.1-6.9); NEUTROPHILS % 60.7 % (38.7-80.0); PLATELET COUNT 254 x10e3/uL (140-360); RED CELL DISTRIBUTION WIDTH 20.1 % (11.7-14.4)
[2017-08-23 07:14] LABS: ANION GAP 12.3 mmol/L (8-16); CALCIUM 9.3 mg/dL (8.4-10.2); CREATININE, SERUM 2.13 mg/dL (0.57-1.11); POTASSIUM 3.3 mmol/L (3.5-5.1)
[2017-08-23] MEDS ORDERED: GLYCOPYRROLATE INJ 0.2 MG/ML VIAL IV PRN (07:45)
[2017-08-23] MEDS: AMLODIPINE BESYLATE 10 MG TAB PEG SCH ×2 (10:53→21:10)
[2017-08-23] MEDS: ASCORBIC ACID 500 MG TAB PEG SCH (10:53)
[2017-08-23] MEDS: FAMOTIDINE 20 MG TAB PEG SCH (10:53)
[2017-08-23] MEDS: FERROUS SULFATE 325 MG TAB PEG SCH ×3 (10:53→21:09)
[2017-08-23] MEDS: COLLAGENASE OINTMENT 30 GM TUBE TP SCH (10:55)
[2017-08-23] MEDS: FOLIC ACID/CYANOCOB/PYRIDOXINE TAB PO SCH (10:58)
[2017-08-23] MEDS: CALCIUM ACETATE 667 MG GELCAP PEG SCH ×3 (10:58→20:19)
[2017-08-23] MEDS: EPOETIN ALFA 10000 UNIT/ML VIAL SC SCH (10:58)
[2017-08-23] MEDS: LEVETIRACETAM ORAL SOLUTION 500 MG/5 ML SOLN PEG SCH ×2 (10:58→21:10)
[2017-08-23] MEDS: ZINC SULFATE 220 MG CAP PEG SCH (10:58)
[2017-08-23] MEDS ORDERED: CLONIDINE HCL 0.2 MG TAB PEG SCH (14:00)
[2017-08-23] MEDS: CLONIDINE HCL 0.3 MG TAB PEG SCH ×2 (14:08→21:12)
[2017-08-23] MEDS: ACETAMINOPHEN 325 MG/10 ML UDC PEG PRN (14:42)
[2017-08-23] MEDS ORDERED: POTASSIUM CHLORIDE 20MEQ/100ML 200 ML IV ONE (15:15)
[2017-08-23] MEDS: INSULIN DETEMIR 100 UNIT/ML PEN SQ SCH ×2 (15:20→21:00)
[2017-08-24] VITALS (36 sets, daily range): BP systolic 115–193; BP diastolic 66–106
[2017-08-24] MEDS: INSULIN REGULAR, HUMAN 100 UNIT/1 ML 3ML VIAL SQ SCH ×5 (00:45→12:45)
[2017-08-24] MEDS: HYDRALAZINE HCL 25 MG TAB PO SCH ×4 (06:58→22:00)
[2017-08-24] MEDS: METOCLOPRAMIDE HCL 10MG/10ML UDC PEG SCH ×4 (06:58→23:56)
[2017-08-24] MEDS: CLONIDINE HCL 0.3 MG TAB PEG SCH ×4 (06:58→22:00)
[2017-08-24] MEDS: ACETAMINOPHEN 325 MG/10 ML UDC PEG PRN (07:45)
[2017-08-24] MEDS ORDERED: INSULIN LISPRO 100 UNIT/1 ML 3ML VIAL SQ STA (07:49)
[2017-08-24] MEDS ORDERED: INSULIN LISPRO 100 UNIT/1 ML 3ML VIAL SQ ONE (08:07)
[2017-08-24 08:20] LABS: BASOPHILS % 0.3 % (0.0-1.0); EOSINOPHILS # (AUTO) 0.9 (0.0-0.4); EOSINOPHILS % 8.1 % (0.0-6.0); HEMATOCRIT 24.9 % (34.2-44.1); LYMPHOCYTES # (AUTO) 1.7 (1.0-3.2); LYMPHOCYTES % 14.2 % (18.0-39.1); MEAN CORPUSCULAR HGB CONC 32.1 g/dL (31-35); MEAN CORPUSCULAR VOLUME 84.1 fL (81-99); MONOCYTES % 8.8 % (4.4-11.3); NEUTROPHILS # (AUTO) 7.9 (2.1-6.9); NEUTROPHILS % 67.9 % (38.7-80.0); PLATELET COUNT 313 x10e3/uL (140-360); RED BLOOD COUNT 2.96 x10e6/uL (3.6-5.1); RED CELL DISTRIBUTION WIDTH 19.8 % (11.7-14.4)
[2017-08-24 08:23] LABS: ABG HCO3 21 mmol/L (23-28); ABG PCO2 32 mmHg (41-51); ABG PH 7.43 (7.31-7.41); ABG PO2 51 mmHg (80-105)
[2017-08-24 08:32] LABS: CALCIUM 9.5 mg/dL (8.4-10.2); CREATININE, SERUM 3.17 mg/dL (0.57-1.11)
[2017-08-24] MEDS ORDERED: INSULIN REGULAR, HUMAN 100 UNITS in SODIUM CHLORIDE 0.45% 100 ML IV PRN ×2 (09:00)
[2017-08-24] MEDS ORDERED: INSULIN REGULAR, HUMAN 100 UNITS in SODIUM CHLORIDE 0.45% 100 ML SQ PRN ×2 (09:00)
--- NOTE | 2017-08-24 09:03 | Diagnostic Imaging Report ---
PROCEDURE: A single AP view of the chest. COMPARISON: Patients [facility], , CHEST SINGLE (PORTABLE), 08/16/2017, 13:51. INDICATIONS: RESPIRATORY DISTRESS FINDINGS: Lines/tubes: Tracheostomy tube and left IJ tunneled hemodialysis catheter are unchanged in position. Lungs: Worsening pulmonary edema. Pleura: There is no pleural effusion or pneumothorax. Heart and mediastinum: The heart and the mediastinum are unremarkable. Bones: No acute bony abnormality. IMPRESSION: Worsening pulmonary edema. Eldon Díaz D.O. Dictated by: Eldon Díaz D.O. on 08/24/2017 at 9:04 Electronically approved by: Eldon Díaz D.O. on 08/24/2017 at 9:04
[2017-08-24] MEDS: CALCIUM ACETATE 667 MG GELCAP PEG SCH ×3 (09:40→17:20)
[2017-08-24] MEDS: FERROUS SULFATE 325 MG TAB PEG SCH ×3 (09:40→21:02)
[2017-08-24] MEDS: ASCORBIC ACID 500 MG TAB PEG SCH (09:41)
[2017-08-24] MEDS: ZINC SULFATE 220 MG CAP PEG SCH (09:41)
[2017-08-24] MEDS: FAMOTIDINE 20 MG TAB PEG SCH (09:41)
[2017-08-24] MEDS: LEVETIRACETAM ORAL SOLUTION 500 MG/5 ML SOLN PEG SCH ×2 (09:41→21:02)
[2017-08-24] MEDS: FOLIC ACID/CYANOCOB/PYRIDOXINE TAB PO SCH (09:41)
[2017-08-24] MEDS: INSULIN DETEMIR 100 UNIT/ML PEN SQ SCH ×2 (09:43→21:10)
[2017-08-24] MEDS: LABETALOL HCL 200 MG TAB PEG SCH (09:59)
[2017-08-24] MEDS: AMLODIPINE BESYLATE 10 MG TAB PEG SCH (09:59)
[2017-08-24] MEDS ORDERED: INSULIN REGULAR, HUMAN 3ML VL 100 UNIT in SODIUM CHLORIDE 0.9% 100 ML 100 ML IV SCH ×2 (10:00)
[2017-08-24] MEDS: HEPARIN SOD (PORCINE) 5,000 UNIT/ML VIAL SC SCH ×2 (10:30→21:09)
--- NOTE | 2017-08-24 10:41 | Progress Note ---
DATE: August 24, 2017 NEPHROLOGY PROGRESS NOTE Went back into DKA. Chest x-ray showing fluid overload. PHYSICAL EXAMINATION VITALS: Temperature 101.4. Pulse 102. Blood pressure 173/83. CHEST: Scattered crackles. NEURO: Currently not alert. NECK: Tracheostomy in place attached to ventilator. EXTREMITIES: Edema plus. ASSESSMENT 1. End-stage renal disease. 2. Fluid overload. 3. History of anoxic injury. 4. Hypertension. 5. Diabetes with presumed diabetic ketoacidosis given raised anion gap. Blood sugar 613. 6. Concern for sepsis. Sodium is artificially depressed because of glucose. PLAN: Hemodialysis today, 4-hour run, 2-potassium bath, blood flow 50 mL per minute, dialysate flow rate 700 mL per minute. Try to remove 4 L as tolerated. Will plan on putting him back on dialysis again tomorrow. Job#: [id number]
--- NOTE | 2017-08-24 12:34 | Consultation ---
DATE OF CONSULTATION: PULMONARY CONSULTATION This is a patient of Dr. Arguello. The patient is well known to the pulmonary service. This is an unfortunate, 37-year-old juvenile diabetic with a history of cardiac arrest and hypoxic encephalopathy in a persistent vegetative state. History of hypertension. She is diabetic since age 7. She has a PEG tube, a tracheostomy, a dialysis catheter. History is obtained from the chart. She is not interactive. The patient has been febrile since admission. She is under therapy for presumed pseudomonas pneumonia. She was admitted with markedly elevated blood sugar of 794. She remains precarious. Apparently was tachypneic this morning and somewhat hypoxic and required mechanical ventilator support. She is placed now on a portable transport ventilator. There are no ICU beds. EXAM GENERAL: This is a well-developed, black female not interactive. HEENT: Head is normocephalic and atraumatic. Tracheostomy in place. Left-sided Groshong catheter. LUNGS: Bilateral rhonchi. HEART: Regular rhythm. ABDOMEN: PEG is in place. EXTREMITIES: Not edematous. Chest x-ray suggests pulmonary edema, possible bilateral effusions. The plan is to continue mechanical ventilator support. The patient has been stabilized. Dialysis is planned this morning. Consider changing lines, but we will defer this to infectious disease service. She is currently on ertapenem. Will add prophylactic heparin. Continue support. Antibiotics as per infectious disease service. The patient does have a right femoral line. This was placed on admission on the . Long-term prognosis is grim. Thank you for this kind referral. Job#: [id number]
[2017-08-24] MEDS ORDERED: INSULIN LISPRO 100 UNIT/1 ML 3ML VIAL SQ SCH (14:15)
[2017-08-24] MEDS: ERTAPENEM 1GM/NS 100ML 100 ML IV SCH (14:53)
[2017-08-24] MEDS: COLLAGENASE OINTMENT 30 GM TUBE TP SCH (15:21)
[2017-08-24] MEDS: INSULIN LISPRO 100 UNIT/1 ML 3ML VIAL SQ SCH ×3 (16:34→21:09)
--- NOTE | 2017-08-24 19:18 | Diagnostic Imaging Report ---
PROCEDURE:US CHEST (INCL MEDIASTINUM) COMPARISON:Chest radiograph 08/24/2017 INDICATIONS:EFFUSIONS FINDINGS: Limited evaluation secondary to small body habitus resulting in limited window and intubation. No right pleural effusion identified. Small anechoic left pleural effusion. CONCLUSION: Small left pleural effusion. Dictated by: Kevin Cavazos M.D. on 08/24/2017 at 19:19 Electronically approved by: Kevin Cavazos M.D. on 08/24/2017 at 19:19
[2017-08-24] MEDS: NIFEDIPINE CR 30 MG TAB PO SCH (21:02)
[2017-08-25] VITALS (47 sets, daily range): BP systolic 113–179; BP diastolic 57–107
[2017-08-25] MEDS: ACETAMINOPHEN 325 MG/10 ML UDC PEG PRN ×3 (00:03→20:56)
[2017-08-25] MEDS: HYDRALAZINE HCL 25 MG TAB PO SCH ×3 (04:06→21:56)
[2017-08-25] MEDS: METOCLOPRAMIDE HCL 10MG/10ML UDC PEG SCH ×4 (05:29→23:58)
[2017-08-25] MEDS: CLONIDINE HCL 0.3 MG TAB PEG SCH ×3 (05:33→21:56)
[2017-08-25] MEDS: INSULIN LISPRO 100 UNIT/1 ML 3ML VIAL SQ SCH ×6 (05:53→21:35)
[2017-08-25 06:18] LABS: BASOPHILS # (AUTO) 0.1 (0.0-0.1); BASOPHILS % 0.4 % (0.0-1.0); EOSINOPHILS % 6.7 % (0.0-6.0); HEMATOCRIT 23.8 % (34.2-44.1); HEMOGLOBIN 7.5 g/dL (12.0-16.0); LYMPHOCYTES # (AUTO) 1.5 (1.0-3.2); LYMPHOCYTES % 10.8 % (18.0-39.1); MEAN CORPUSCULAR HEMOGLOBIN 26.7 pg (28-32); MEAN CORPUSCULAR HGB CONC 31.5 g/dL (31-35); MEAN CORPUSCULAR VOLUME 84.7 fL (81-99); MONOCYTES # (AUTO) 1.4 (0.2-0.8); MONOCYTES % 9.6 % (4.4-11.3); NEUTROPHILS # (AUTO) 10.3 (2.1-6.9); NEUTROPHILS % 71.9 % (38.7-80.0); PLATELET COUNT 328 x10e3/uL (140-360); RED BLOOD COUNT 2.81 x10e6/uL (3.6-5.1); RED CELL DISTRIBUTION WIDTH 19.4 % (11.7-14.4)
[2017-08-25 06:42] LABS: ANION GAP 16.5 mmol/L (8-16); CALCIUM 9.4 mg/dL (8.4-10.2); CREATININE, SERUM 2.24 mg/dL (0.57-1.11); POTASSIUM 4.5 mmol/L (3.5-5.1)
[2017-08-25] MEDS ORDERED: INSULIN LISPRO 100 UNIT/1 ML 3ML VIAL SQ SCH ×2 (07:00→12:00)
[2017-08-25] MEDS: FOLIC ACID/CYANOCOB/PYRIDOXINE TAB PO SCH (08:13)
[2017-08-25] MEDS: FAMOTIDINE 20 MG TAB PEG SCH (08:13)
[2017-08-25] MEDS: ASCORBIC ACID 500 MG TAB PEG SCH (08:13)
[2017-08-25] MEDS: ZINC SULFATE 220 MG CAP PEG SCH (08:13)
[2017-08-25] MEDS: LEVETIRACETAM ORAL SOLUTION 500 MG/5 ML SOLN PEG SCH ×2 (08:13→20:13)
[2017-08-25] MEDS: FERROUS SULFATE 325 MG TAB PEG SCH ×3 (08:13→20:13)
[2017-08-25] MEDS: CALCIUM ACETATE 667 MG GELCAP PEG SCH ×3 (08:13→17:00)
[2017-08-25] MEDS: COLLAGENASE OINTMENT 30 GM TUBE TP SCH (08:14)
[2017-08-25] MEDS: EPOETIN ALFA 10000 UNIT/ML VIAL SC SCH (08:14)
[2017-08-25] MEDS: NIFEDIPINE CR 30 MG TAB PO SCH ×2 (08:14→20:13)
[2017-08-25] MEDS: HEPARIN SOD (PORCINE) 5,000 UNIT/ML VIAL SC SCH ×2 (08:23→20:20)
[2017-08-25] MEDS: INSULIN DETEMIR 100 UNIT/ML PEN SQ SCH ×2 (08:24→21:30)
[2017-08-25] MEDS: ERTAPENEM 1GM/NS 100ML 100 ML IV SCH (09:52)
[2017-08-25] MEDS ORDERED: SODIUM CHLORIDE 0.9% 250ML 250 ML IV ONE (11:15)
[2017-08-25 12:50] LABS: FERRITIN 935.88 ng/mL (4.63-204.00)
[2017-08-26] VITALS (50 sets, daily range): BP systolic 103–184; BP diastolic 55–94
[2017-08-26] MEDS: INSULIN LISPRO 100 UNIT/1 ML 3ML VIAL SQ SCH ×8 (01:58→22:07)
[2017-08-26] MEDS: CLONIDINE HCL 0.3 MG TAB PEG SCH ×3 (05:28→22:00)
[2017-08-26] MEDS: HYDRALAZINE HCL 25 MG TAB PO SCH ×3 (05:28→22:00)
[2017-08-26] MEDS: METOCLOPRAMIDE HCL 10MG/10ML UDC PEG SCH ×3 (05:28→17:33)
[2017-08-26 05:58] LABS: BASOPHILS # (AUTO) 0.1 (0.0-0.1); BASOPHILS % 0.4 % (0.0-1.0); EOSINOPHILS # (AUTO) 1.1 (0.0-0.4); EOSINOPHILS % 7.8 % (0.0-6.0); HEMATOCRIT 28.2 % (34.2-44.1); HEMOGLOBIN 9.2 g/dL (12.0-16.0); LYMPHOCYTES # (AUTO) 1.7 (1.0-3.2); LYMPHOCYTES % 11.5 % (18.0-39.1); MEAN CORPUSCULAR HEMOGLOBIN 27.2 pg (28-32); MEAN CORPUSCULAR HGB CONC 32.6 g/dL (31-35); MEAN CORPUSCULAR VOLUME 83.4 fL (81-99); MONOCYTES # (AUTO) 1.5 (0.2-0.8); MONOCYTES % 10.8 % (4.4-11.3); NEUTROPHILS # (AUTO) 9.9 (2.1-6.9); NEUTROPHILS % 68.7 % (38.7-80.0); PLATELET COUNT 353 x10e3/uL (140-360); RED BLOOD COUNT 3.38 x10e6/uL (3.6-5.1); RED CELL DISTRIBUTION WIDTH 18.5 % (11.7-14.4)
[2017-08-26 06:22] LABS: CALCIUM 9.6 mg/dL (8.4-10.2); CREATININE, SERUM 2.22 mg/dL (0.57-1.11); MAGNESIUM 1.9 MG/DL (1.3-2.1)
[2017-08-26 07:26] LABS: EOSINOPHILS % (MANUAL) 6 % (0-7); LYMPHOCYTES % (MANUAL) 9 % (19-48); MONOCYTES % (MANUAL) 10 % (3.4-9.0); NEUTROPHILS % (MANUAL) 74 % (40-74)
[2017-08-26 07:27] LABS: PLATELET ESTIMATE ADEQUATE; PLATELET MORPHOLOGY COMMENT NORMAL; RBC MORPHOLOGY COMMENT NORMAL
[2017-08-26] MEDS: CALCIUM ACETATE 667 MG GELCAP PEG SCH ×3 (07:46→17:33)
[2017-08-26] MEDS: NIFEDIPINE CR 30 MG TAB PO SCH ×2 (09:02→20:41)
[2017-08-26] MEDS: FOLIC ACID/CYANOCOB/PYRIDOXINE TAB PO SCH (09:02)
[2017-08-26] MEDS: ZINC SULFATE 220 MG CAP PEG SCH (09:02)
[2017-08-26] MEDS: FAMOTIDINE 20 MG TAB PEG SCH (09:02)
[2017-08-26] MEDS: LEVETIRACETAM ORAL SOLUTION 500 MG/5 ML SOLN PEG SCH ×2 (09:02→20:41)
[2017-08-26] MEDS: ASCORBIC ACID 500 MG TAB PEG SCH ×2 (09:02→15:15)
[2017-08-26] MEDS: LABETALOL HCL 200 MG TAB PEG SCH (09:02)
[2017-08-26] MEDS: COLLAGENASE OINTMENT 30 GM TUBE TP SCH (09:02)
[2017-08-26] MEDS: FERROUS SULFATE 325 MG TAB PEG SCH ×3 (09:02→20:41)
[2017-08-26] MEDS: INSULIN DETEMIR 100 UNIT/ML PEN SQ SCH ×2 (09:07→20:50)
[2017-08-26] MEDS: HEPARIN SOD (PORCINE) 5,000 UNIT/ML VIAL SC SCH ×2 (09:07→20:43)
[2017-08-26] MEDS: ERTAPENEM 1GM/NS 100ML 100 ML IV SCH (10:28)
[2017-08-27] VITALS (50 sets, daily range): BP systolic 125–198; BP diastolic 76–146
[2017-08-27] MEDS: LABETALOL HCL 5 MG/ML 20ML VIAL IV PRN (02:32)
[2017-08-27] MEDS: INSULIN LISPRO 100 UNIT/1 ML 3ML VIAL SQ SCH ×8 (02:41→21:57)
[2017-08-27 05:50] LABS: BASOPHILS # (AUTO) 0.1 (0.0-0.1); BASOPHILS % 0.4 % (0.0-1.0); EOSINOPHILS # (AUTO) 1.9 (0.0-0.4); HEMATOCRIT 30.3 % (34.2-44.1); HEMOGLOBIN 9.8 g/dL (12.0-16.0); LYMPHOCYTES # (AUTO) 1.8 (1.0-3.2); LYMPHOCYTES % 11.9 % (18.0-39.1); MEAN CORPUSCULAR HEMOGLOBIN 27.1 pg (28-32); MEAN CORPUSCULAR HGB CONC 32.3 g/dL (31-35); MEAN CORPUSCULAR VOLUME 83.9 fL (81-99); MONOCYTES # (AUTO) 1.7 (0.2-0.8); MONOCYTES % 11.2 % (4.4-11.3); NEUTROPHILS # (AUTO) 9.2 (2.1-6.9); PLATELET COUNT 466 x10e3/uL (140-360); RED BLOOD COUNT 3.61 x10e6/uL (3.6-5.1); RED CELL DISTRIBUTION WIDTH 18.4 % (11.7-14.4)
[2017-08-27] MEDS: CLONIDINE HCL 0.3 MG TAB PEG SCH ×3 (05:57→21:55)
[2017-08-27] MEDS: HYDRALAZINE HCL 25 MG TAB PO SCH ×3 (05:57→21:55)
[2017-08-27] MEDS: METOCLOPRAMIDE HCL 10MG/10ML UDC PEG SCH ×4 (05:57→18:38)
[2017-08-27 06:14] LABS: ANION GAP 17.9 mmol/L (8-16); CALCIUM 10.3 mg/dL (8.4-10.2); CREATININE, SERUM 2.99 mg/dL (0.57-1.11); POTASSIUM 3.9 mmol/L (3.5-5.1)
--- NOTE | 2017-08-27 06:46 | Diagnostic Imaging Report ---
EXAM: CHEST SINGLE (PORTABLE), AP 1 view INDICATION: Pneumonia COMPARISON: AP view of the chest August 24, 2017 FINDINGS: LINES/TUBES: Stable position of left internal jugular vein tunneled Tessio hemodialysis catheter. Stable tracheostomy tube. LUNGS: Pulmonary edema, slightly decreased PLEURA: No effusions or pneumothorax. HEART AND MEDIASTINUM: Stable BONES AND SOFT TISSUES: No acute findings. IMPRESSION: Slight interval decrease in pulmonary edema. Signed by: Dr. Ella Guadarrama M.D. on 08/27/2017 6:43 AM
[2017-08-27] MEDS: CALCIUM ACETATE 667 MG GELCAP PEG SCH ×3 (08:00→18:38)
[2017-08-27] MEDS: INSULIN DETEMIR 100 UNIT/ML PEN SQ SCH ×2 (08:25→22:01)
[2017-08-27] MEDS: FERROUS SULFATE 325 MG TAB PEG SCH ×3 (09:00→20:41)
[2017-08-27] MEDS: ASCORBIC ACID 500 MG TAB PEG SCH ×2 (09:00→18:38)
[2017-08-27 09:01] LABS: EOSINOPHILS % (MANUAL) 11 % (0-7); LYMPHOCYTES % (MANUAL) 9 % (19-48); MONOCYTES % (MANUAL) 6 % (3.4-9.0); NEUTROPHILS % (MANUAL) 74 % (40-74)
[2017-08-27 09:02] LABS: ANISOCYTOSIS SLIGHT; PLATELET ESTIMATE MODERATELY INCREASED; PLATELET MORPHOLOGY COMMENT NORMAL; RBC MORPHOLOGY COMMENT ABNORMAL
[2017-08-27] MEDS: HEPARIN SOD (PORCINE) 5,000 UNIT/ML VIAL SC SCH ×2 (09:43→20:42)
[2017-08-27 10:13] LABS: ABG HCO3 25 mmol/L (23-28); ABG PCO2 44 mmHg (41-51); ABG PH 7.37 (7.31-7.41); ABG PO2 66 mmHg (80-105)
[2017-08-27] MEDS ORDERED: EPOETIN ALFA 10000 UNIT/ML VIAL SC SCH (14:00)
--- NOTE | 2017-08-27 14:13 | Progress Note ---
DATE: PROGRESS NOTE SUBJECTIVE: Ms. Mason is getting hemodialysis. She is alert and comfortable. No new complaints. No new problems. Nonverbal. PHYSICAL EXAMINATION GENERAL: She is alert, nonverbal. VITAL SIGNS: Stable, afebrile. T-max is 100.4 on August 25. HEENT: Normocephalic. NECK: Supple. CHEST: Few rhonchi, coarse. HEART: S1 and S2. ABDOMEN: Soft. Bowel sounds present. Patient is currently on Invanz. IMPRESSION 1. End-stage renal disease. 2. History of anoxic brain injury. 3. Hypertension. 4. Diabetes. 5. Aspiration pneumonia. Patient is stable to finish 8 days of Invanz. Job#: [id number] TEJINDER
[2017-08-27] MEDS: FAMOTIDINE 20 MG TAB PEG SCH (14:36)
[2017-08-27] MEDS: ZINC SULFATE 220 MG CAP PEG SCH (14:36)
[2017-08-27] MEDS: LEVETIRACETAM ORAL SOLUTION 500 MG/5 ML SOLN PEG SCH ×2 (14:36→20:41)
[2017-08-27] MEDS: FOLIC ACID/CYANOCOB/PYRIDOXINE TAB PO SCH (14:36)
[2017-08-27] MEDS: ERTAPENEM 1GM/NS 100ML 100 ML IV SCH (14:37)
[2017-08-27] MEDS: COLLAGENASE OINTMENT 30 GM TUBE TP SCH (14:37)
[2017-08-27] MEDS: EPOETIN ALFA 10000 UNIT/ML VIAL SC SCH (14:37)
[2017-08-27] MEDS: NIFEDIPINE CR 30 MG TAB PO SCH ×2 (14:37→20:41)
[2017-08-28] VITALS (21 sets, daily range): BP systolic 113–198; BP diastolic 66–130
[2017-08-28] MEDS: LABETALOL HCL 5 MG/ML 20ML VIAL IV PRN (01:51)
[2017-08-28] MEDS: INSULIN LISPRO 100 UNIT/1 ML 3ML VIAL SQ SCH ×8 (01:52→22:00)
[2017-08-28] MEDS: HYDRALAZINE HCL 25 MG TAB PO SCH ×2 (05:45→13:19)
[2017-08-28] MEDS: CLONIDINE HCL 0.3 MG TAB PEG SCH ×3 (05:45→22:15)
[2017-08-28] MEDS: METOCLOPRAMIDE HCL 10MG/10ML UDC PEG SCH ×4 (05:45→17:40)
[2017-08-28 06:11] LABS: BASOPHILS # (AUTO) 0.1 (0.0-0.1); BASOPHILS % 0.4 % (0.0-1.0); EOSINOPHILS # (AUTO) 2.2 (0.0-0.4); EOSINOPHILS % 16.5 % (0.0-6.0); HEMOGLOBIN 9.5 g/dL (12.0-16.0); LYMPHOCYTES # (AUTO) 1.7 (1.0-3.2); MEAN CORPUSCULAR HEMOGLOBIN 26.8 pg (28-32); MEAN CORPUSCULAR HGB CONC 31.7 g/dL (31-35); MEAN CORPUSCULAR VOLUME 84.5 fL (81-99); MONOCYTES # (AUTO) 1.6 (0.2-0.8); MONOCYTES % 11.8 % (4.4-11.3); NEUTROPHILS # (AUTO) 7.7 (2.1-6.9); NEUTROPHILS % 57.2 % (38.7-80.0); PLATELET COUNT 458 x10e3/uL (140-360); RED BLOOD COUNT 3.55 x10e6/uL (3.6-5.1); RED CELL DISTRIBUTION WIDTH 18.9 % (11.7-14.4)
[2017-08-28 06:38] LABS: ALBUMIN 2.2 g/dL (3.5-5.0); ALBUMIN/GLOBULIN RATIO 0.7 (0.8-2.0); ANION GAP 14.9 mmol/L (8-16); CALCIUM 9.7 mg/dL (8.4-10.2); CREATININE, SERUM 2.26 mg/dL (0.57-1.11); POTASSIUM 3.9 mmol/L (3.5-5.1)
[2017-08-28] MEDS: CALCIUM ACETATE 667 MG GELCAP PEG SCH ×3 (08:33→17:41)
[2017-08-28] MEDS: LEVETIRACETAM ORAL SOLUTION 500 MG/5 ML SOLN PEG SCH ×2 (08:33→22:13)
[2017-08-28] MEDS: ASCORBIC ACID 500 MG TAB PEG SCH ×2 (08:33→17:40)
[2017-08-28] MEDS: LABETALOL HCL 200 MG TAB PEG SCH (08:33)
[2017-08-28] MEDS: FERROUS SULFATE 325 MG TAB PEG SCH ×3 (08:33→22:13)
[2017-08-28] MEDS: FAMOTIDINE 20 MG TAB PEG SCH (08:33)
[2017-08-28] MEDS: ZINC SULFATE 220 MG CAP PEG SCH (08:34)
[2017-08-28] MEDS: FOLIC ACID/CYANOCOB/PYRIDOXINE TAB PO SCH (08:34)
[2017-08-28] MEDS: HEPARIN SOD (PORCINE) 5,000 UNIT/ML VIAL SC SCH ×2 (08:34→22:18)
[2017-08-28] MEDS: NIFEDIPINE CR 30 MG TAB PO SCH ×2 (08:34→22:13)
[2017-08-28] MEDS: INSULIN DETEMIR 100 UNIT/ML PEN SQ SCH ×2 (10:44→22:18)
[2017-08-28] MEDS: COLLAGENASE OINTMENT 30 GM TUBE TP SCH (10:44)
[2017-08-28] MEDS: ERTAPENEM 1GM/NS 100ML 100 ML IV SCH (10:44)
[2017-08-28 11:22] LABS: EOSINOPHILS % (MANUAL) 24 % (0-7); LYMPHOCYTES % (MANUAL) 15 % (19-48); MONOCYTES % (MANUAL) 13 % (3.4-9.0); NEUTROPHILS % (MANUAL) 48 % (40-74); PLATELET ESTIMATE ADEQUATE; PLATELET MORPHOLOGY COMMENT NORMAL; RBC MORPHOLOGY COMMENT NORMAL
--- NOTE | 2017-08-28 13:09 | Progress Note ---
DATE: INFECTIOUS DISEASE PROGRESS NOTE SUBJECTIVE: Ms. Ruiz is nonverbal. Does not seem to be in acute distress. No change today. PHYSICAL EXAMINATION VITAL SIGNS: Stable. Afebrile. HEENT: She does not appear icteric. NECK: Supple. CHEST: Clear. HEART: S1 and S2. ABDOMEN: Soft. Bowel sounds present. No tenderness. EXTREMITIES: No edema. LABORATORY DATA: Reviewed. White count 13.3, hemoglobin 9.5. Creatinine 2.26. IMPRESSION 1. Pneumonia, aspiration, better. 2. Fever secondary to drug. 3. End-stage renal disease. 4. History of encephalopathy. 5. Chronic respiratory failure. 6. Diabetes mellitus. 7. Hypertension. PLAN: From infectious disease point of view, to finish 8 days of Invanz. Continue with supportive care. Job#: [id number] EV
[2017-08-29] VITALS (7 sets, daily range): BP systolic 113–188; BP diastolic 57–92
[2017-08-29] MEDS: METOCLOPRAMIDE HCL 10MG/10ML UDC PEG SCH ×4 (01:58→17:45)
[2017-08-29] MEDS: HYDRALAZINE HCL 25 MG TAB PO SCH ×4 (01:59→21:48)
[2017-08-29] MEDS: INSULIN LISPRO 100 UNIT/1 ML 3ML VIAL SQ SCH ×8 (02:00→21:50)
[2017-08-29] MEDS: CLONIDINE HCL 0.3 MG TAB PEG SCH ×3 (06:45→21:00)
[2017-08-29 07:24] LABS: BASOPHILS # (AUTO) 0.1 (0.0-0.1); BASOPHILS % 0.8 % (0.0-1.0); EOSINOPHILS # (AUTO) 1.9 (0.0-0.4); HEMATOCRIT 30.5 % (34.2-44.1); HEMOGLOBIN 9.7 g/dL (12.0-16.0); LYMPHOCYTES # (AUTO) 1.9 (1.0-3.2); LYMPHOCYTES % 13.3 % (18.0-39.1); MEAN CORPUSCULAR HEMOGLOBIN 27.6 pg (28-32); MEAN CORPUSCULAR HGB CONC 31.8 g/dL (31-35); MEAN CORPUSCULAR VOLUME 86.9 fL (81-99); MONOCYTES # (AUTO) 1.4 (0.2-0.8); MONOCYTES % 9.5 % (4.4-11.3); NEUTROPHILS % 61.8 % (38.7-80.0); PLATELET COUNT 520 x10e3/uL (140-360); RED BLOOD COUNT 3.51 x10e6/uL (3.6-5.1); RED CELL DISTRIBUTION WIDTH 19.4 % (11.7-14.4)
[2017-08-29 07:46] LABS: ANION GAP 17.7 mmol/L (8-16); CALCIUM 10.2 mg/dL (8.4-10.2); CREATININE, SERUM 3.51 mg/dL (0.57-1.11); POTASSIUM 4.7 mmol/L (3.5-5.1)
[2017-08-29 08:20] LABS: MAGNESIUM 2.3 MG/DL (1.3-2.1); PHOSPHORUS 0.8 MG/DL (2.3-4.7)
[2017-08-29] MEDS: ZINC SULFATE 220 MG CAP PEG SCH (08:35)
[2017-08-29] MEDS: INSULIN DETEMIR 100 UNIT/ML PEN SQ SCH ×2 (08:35→21:00)
[2017-08-29] MEDS: FAMOTIDINE 20 MG TAB PEG SCH (08:35)
[2017-08-29] MEDS: NIFEDIPINE CR 30 MG TAB PO SCH ×2 (08:35→21:45)
[2017-08-29] MEDS: ASCORBIC ACID 500 MG TAB PEG SCH ×2 (08:35→17:45)
[2017-08-29] MEDS: LABETALOL HCL 200 MG TAB PEG SCH (08:35)
[2017-08-29] MEDS: HEPARIN SOD (PORCINE) 5,000 UNIT/ML VIAL SC SCH ×2 (08:36→21:46)
[2017-08-29] MEDS: CALCIUM ACETATE 667 MG GELCAP PEG SCH ×3 (08:36→17:45)
[2017-08-29] MEDS: LEVETIRACETAM ORAL SOLUTION 500 MG/5 ML SOLN PEG SCH ×2 (08:36→21:45)
[2017-08-29] MEDS: FERROUS SULFATE 325 MG TAB PEG SCH ×3 (09:00→21:45)
[2017-08-29] MEDS: FOLIC ACID/CYANOCOB/PYRIDOXINE TAB PO SCH (09:00)
[2017-08-29 09:11] LABS: ANISOCYTOSIS SLIGHT; EOSINOPHILS % (MANUAL) 14 % (0-7); HYPOCHROMASIA SLIGHT; LYMPHOCYTES % (MANUAL) 16 % (19-48); MONOCYTES % (MANUAL) 11 % (3.4-9.0); NEUTROPHILS % (MANUAL) 55 % (40-74); POIKILOCYTOSIS SLIGHT
[2017-08-29 09:12] LABS: PLATELET ESTIMATE SLIGHTLY INCREASED; RBC MORPHOLOGY COMMENT NORMAL
[2017-08-29 09:13] LABS: PLATELET MORPHOLOGY COMMENT NORMAL
[2017-08-29] MEDS: ERTAPENEM 1GM/NS 100ML 100 ML IV SCH (10:00)
[2017-08-29] MEDS: COLLAGENASE OINTMENT 30 GM TUBE TP SCH (16:32)
--- NOTE | 2017-08-29 18:18 | Progress Note ---
DATE: August 29, 2017, at approximately 5:30 in the afternoon. NEUROLOGICAL PROGRESS NOTE The patient has been transferred from ICU to the floor. The patient's neuro status is the same, does not have any change. She is in vegetative state, opening her eyes but not focusing. Pupils equal, reactive. Doll's movements decreased. Corneal reflex present. With stimulation, some withdrawal of the arms and legs. Vital signs: Blood pressure 113/57, pulse 78, temperature 99.7. Laboratory workup: CBC shows a white count 14,500 with a hemoglobin 9.7, hematocrit 30.5, platelets 520, which is elevated. Chemistry: Blood sugar 304, then 114. Sodium 129 is low. Potassium 4.7. BUN 47, creatinine 3.51, estimated GFR 18. Glucose today was 520. IMPRESSION 1. Vegetative state secondary to severe hypoxic encephalopathy secondary to cardiac arrest. 2. Hypertension. 3. Diabetes mellitus type 2. 4. Status post tracheostomy. Job#: [id number] EV
[2017-08-30] VITALS (9 sets, daily range): BP systolic 148–188; BP diastolic 67–91
[2017-08-30] MEDS: METOCLOPRAMIDE HCL 10MG/10ML UDC PEG SCH ×4 (00:02→17:34)
[2017-08-30] MEDS: INSULIN LISPRO 100 UNIT/1 ML 3ML VIAL SQ SCH ×8 (02:04→22:00)
[2017-08-30] MEDS: CLONIDINE HCL 0.3 MG TAB PEG SCH ×3 (06:00→21:45)
[2017-08-30] MEDS: HYDRALAZINE HCL 25 MG TAB PO SCH ×3 (06:48→22:06)
[2017-08-30 06:49] LABS: BASOPHILS # (AUTO) 0.1 (0.0-0.1); BASOPHILS % 0.7 % (0.0-1.0); EOSINOPHILS # (AUTO) 1.6 (0.0-0.4); EOSINOPHILS % 8.8 % (0.0-6.0); HEMATOCRIT 30.1 % (34.2-44.1); HEMOGLOBIN 9.5 g/dL (12.0-16.0); LYMPHOCYTES # (AUTO) 1.7 (1.0-3.2); LYMPHOCYTES % 9.5 % (18.0-39.1); MEAN CORPUSCULAR HEMOGLOBIN 27.5 pg (28-32); MEAN CORPUSCULAR HGB CONC 31.6 g/dL (31-35); MONOCYTES # (AUTO) 1.4 (0.2-0.8); MONOCYTES % 7.8 % (4.4-11.3); NEUTROPHILS # (AUTO) 12.9 (2.1-6.9); NEUTROPHILS % 72.2 % (38.7-80.0); PLATELET COUNT 505 x10e3/uL (140-360); RED BLOOD COUNT 3.46 x10e6/uL (3.6-5.1); RED CELL DISTRIBUTION WIDTH 19.6 % (11.7-14.4)
[2017-08-30 07:28] LABS: ANION GAP 21.6 mmol/L (8-16); CALCIUM 10.6 mg/dL (8.4-10.2); CREATININE, SERUM 4.65 mg/dL (0.57-1.11); MAGNESIUM 2.8 MG/DL (1.3-2.1); POTASSIUM 4.6 mmol/L (3.5-5.1)
[2017-08-30] MEDS: FERROUS SULFATE 325 MG TAB PEG SCH ×3 (08:36→21:30)
[2017-08-30] MEDS: FAMOTIDINE 20 MG TAB PEG SCH (08:36)
[2017-08-30] MEDS: ASCORBIC ACID 500 MG TAB PEG SCH ×2 (08:37→16:50)
[2017-08-30] MEDS: ZINC SULFATE 220 MG CAP PEG SCH (08:37)
[2017-08-30] MEDS: COLLAGENASE OINTMENT 30 GM TUBE TP SCH (08:37)
[2017-08-30] MEDS: LEVETIRACETAM ORAL SOLUTION 500 MG/5 ML SOLN PEG SCH ×2 (08:37→21:30)
[2017-08-30] MEDS: INSULIN DETEMIR 100 UNIT/ML PEN SQ SCH ×2 (08:37→21:30)
[2017-08-30] MEDS: FOLIC ACID/CYANOCOB/PYRIDOXINE TAB PO SCH (08:37)
[2017-08-30] MEDS: CALCIUM ACETATE 667 MG GELCAP PEG SCH ×3 (08:37→16:50)
[2017-08-30] MEDS: HEPARIN SOD (PORCINE) 5,000 UNIT/ML VIAL SC SCH ×2 (08:37→21:45)
[2017-08-30] MEDS: EPOETIN ALFA 10000 UNIT/ML VIAL SC SCH (08:38)
[2017-08-30] MEDS: NIFEDIPINE CR 30 MG TAB PO SCH ×2 (08:38→21:30)
[2017-08-30 09:11] LABS: EOSINOPHILS % (MANUAL) 5 % (0-7); LYMPHOCYTES % (MANUAL) 8 % (19-48); METAMYELOCYTES % (MANUAL) 1 % (0-0); MONOCYTES % (MANUAL) 2 % (3.4-9.0); NEUTROPHILS % (MANUAL) 82 % (40-74)
[2017-08-30 09:24] LABS: ANISOCYTOSIS MODERATE; HYPOCHROMASIA SLIGHT; POIKILOCYTOSIS SLIGHT
[2017-08-30 09:25] LABS: PLATELET ESTIMATE SLIGHTLY INCREASED; PLATELET MORPHOLOGY COMMENT FEW GIANT; RBC MORPHOLOGY COMMENT ABNORMAL
[2017-08-30] MEDS: ERTAPENEM 1GM/NS 100ML 100 ML IV SCH (09:43)
[2017-08-30] MEDS ORDERED: SODIUM PHOSPHATE 20 MMOL in SODIUM CHLORIDE 0.9% 250ML 250 ML IV ONE (13:30)
[2017-08-30] MEDS ORDERED: HEPARIN SOD (PORCINE) 1000 UNIT/ML SDV IV PRN (17:30)
[2017-08-31] VITALS (7 sets, daily range): BP systolic 148–195; BP diastolic 67–90
[2017-08-31] MEDS: METOCLOPRAMIDE HCL 10MG/10ML UDC PEG SCH ×4 (00:51→17:56)
[2017-08-31] MEDS: INSULIN LISPRO 100 UNIT/1 ML 3ML VIAL SQ SCH ×8 (02:10→21:50)
[2017-08-31] MEDS: HYDRALAZINE HCL 25 MG TAB PO SCH ×3 (06:00→22:18)
[2017-08-31] MEDS: CLONIDINE HCL 0.3 MG TAB PEG SCH ×3 (06:00→22:18)
[2017-08-31 06:30] LABS: BASOPHILS # (AUTO) 0.1 (0.0-0.1); BASOPHILS % 0.6 % (0.0-1.0); EOSINOPHILS # (AUTO) 1.6 (0.0-0.4); EOSINOPHILS % 12.3 % (0.0-6.0); HEMATOCRIT 32.2 % (34.2-44.1); HEMOGLOBIN 10.3 g/dL (12.0-16.0); LYMPHOCYTES # (AUTO) 1.8 (1.0-3.2); LYMPHOCYTES % 13.7 % (18.0-39.1); MEAN CORPUSCULAR HEMOGLOBIN 27.5 pg (28-32); MEAN CORPUSCULAR VOLUME 86.1 fL (81-99); MONOCYTES # (AUTO) 1.3 (0.2-0.8); MONOCYTES % 9.6 % (4.4-11.3); NEUTROPHILS # (AUTO) 8.3 (2.1-6.9); NEUTROPHILS % 62.7 % (38.7-80.0); PLATELET COUNT 479 x10e3/uL (140-360); RED BLOOD COUNT 3.74 x10e6/uL (3.6-5.1); RED CELL DISTRIBUTION WIDTH 19.6 % (11.7-14.4)
[2017-08-31 06:56] LABS: ANION GAP 18.1 mmol/L (8-16); CALCIUM 9.6 mg/dL (8.4-10.2); CREATININE, SERUM 2.87 mg/dL (0.57-1.11); MAGNESIUM 2.2 MG/DL (1.3-2.1); PHOSPHORUS 1.3 MG/DL (2.3-4.7); POTASSIUM 3.1 mmol/L (3.5-5.1)
[2017-08-31 08:00] LABS: EOSINOPHILS % (MANUAL) 13 % (0-7); LYMPHOCYTES % (MANUAL) 14 % (19-48); METAMYELOCYTES % (MANUAL) 1 % (0-0); MONOCYTES % (MANUAL) 11 % (3.4-9.0); MYELOCYTES % (MANUAL) 1 % (0-0); NEUTROPHILS % (MANUAL) 59 % (40-74)
[2017-08-31 08:01] LABS: ANISOCYTOSIS SLIGHT; HYPOCHROMASIA SLIGHT; PLATELET ESTIMATE SLIGHTLY INCREASED; PLATELET MORPHOLOGY COMMENT NORMAL; RBC MORPHOLOGY COMMENT NORMAL
[2017-08-31] MEDS: COLLAGENASE OINTMENT 30 GM TUBE TP SCH (09:00)
[2017-08-31] MEDS: CALCIUM ACETATE 667 MG GELCAP PEG SCH (09:18)
[2017-08-31] MEDS: LEVETIRACETAM ORAL SOLUTION 500 MG/5 ML SOLN PEG SCH ×2 (09:18→22:17)
[2017-08-31] MEDS: FERROUS SULFATE 325 MG TAB PEG SCH ×3 (09:18→22:17)
[2017-08-31] MEDS: FAMOTIDINE 20 MG TAB PEG SCH (09:18)
[2017-08-31] MEDS: FOLIC ACID/CYANOCOB/PYRIDOXINE TAB PO SCH (09:19)
[2017-08-31] MEDS: LABETALOL HCL 200 MG TAB PEG SCH (09:19)
[2017-08-31] MEDS: ASCORBIC ACID 500 MG TAB PEG SCH ×2 (09:19→17:56)
[2017-08-31] MEDS: ZINC SULFATE 220 MG CAP PEG SCH (09:19)
[2017-08-31] MEDS: HEPARIN SOD (PORCINE) 5,000 UNIT/ML VIAL SC SCH (09:19)
[2017-08-31] MEDS: NIFEDIPINE CR 30 MG TAB PO SCH ×2 (09:19→22:18)
[2017-08-31] MEDS: INSULIN DETEMIR 100 UNIT/ML PEN SQ SCH ×2 (10:00→21:50)
[2017-08-31] MEDS ORDERED: POTASSIUM PHOSPHATE 15 MM in SODIUM CHLORIDE 0.9% 250ML 250 ML IV SCH (12:30)
[2017-09-01] MEDS: METOCLOPRAMIDE HCL 10MG/10ML UDC PEG SCH ×5 (00:38→23:45)
[2017-09-01] MEDS: INSULIN LISPRO 100 UNIT/1 ML 3ML VIAL SQ SCH ×8 (01:42→22:00)
[2017-09-01] MEDS: CLONIDINE HCL 0.3 MG TAB PEG SCH ×3 (06:15→21:50)
[2017-09-01] MEDS: HYDRALAZINE HCL 25 MG TAB PO SCH ×3 (06:16→21:50)
[2017-09-01 06:44] LABS: BASOPHILS # (AUTO) 0.1 (0.0-0.1); BASOPHILS % 0.9 % (0.0-1.0); EOSINOPHILS % 14.3 % (0.0-6.0); LYMPHOCYTES # (AUTO) 1.9 (1.0-3.2); LYMPHOCYTES % 13.8 % (18.0-39.1); MEAN CORPUSCULAR HEMOGLOBIN 27.5 pg (28-32); MEAN CORPUSCULAR HGB CONC 32.3 g/dL (31-35); MEAN CORPUSCULAR VOLUME 85.2 fL (81-99); MONOCYTES # (AUTO) 1.7 (0.2-0.8); MONOCYTES % 12.3 % (4.4-11.3); NEUTROPHILS % 57.6 % (38.7-80.0); PLATELET COUNT 475 x10e3/uL (140-360); RED BLOOD COUNT 3.64 x10e6/uL (3.6-5.1); RED CELL DISTRIBUTION WIDTH 19.1 % (11.7-14.4)
[2017-09-01 06:53] LABS: ANION GAP 18.1 mmol/L (8-16); CREATININE, SERUM 3.77 mg/dL (0.57-1.11); MAGNESIUM 2.5 MG/DL (1.3-2.1); PHOSPHORUS 1.4 MG/DL (2.3-4.7); POTASSIUM 4.1 mmol/L (3.5-5.1)
[2017-09-01 08:00] VITALS: BP 171/80
[2017-09-01] MEDS: ZINC SULFATE 220 MG CAP PEG SCH (08:45)
[2017-09-01] MEDS: FERROUS SULFATE 325 MG TAB PEG SCH ×3 (08:45→21:50)
[2017-09-01] MEDS: EPOETIN ALFA 10000 UNIT/ML VIAL SC SCH (08:45)
[2017-09-01] MEDS: LEVETIRACETAM ORAL SOLUTION 500 MG/5 ML SOLN PEG SCH ×2 (08:45→21:50)
[2017-09-01] MEDS: NIFEDIPINE CR 30 MG TAB PO SCH ×2 (08:45→21:50)
[2017-09-01] MEDS: FOLIC ACID/CYANOCOB/PYRIDOXINE TAB PO SCH (08:45)
[2017-09-01] MEDS: ASCORBIC ACID 500 MG TAB PEG SCH ×2 (08:45→16:45)
[2017-09-01] MEDS: FAMOTIDINE 20 MG TAB PEG SCH (08:45)
[2017-09-01] MEDS: INSULIN DETEMIR 100 UNIT/ML PEN SQ SCH ×2 (08:45→21:45)
[2017-09-01] MEDS: COLLAGENASE OINTMENT 30 GM TUBE TP SCH (09:00)
[2017-09-01] MEDS ORDERED: HEPARIN SOD (PORCINE) 1000 UNIT/ML SDV IV PRN (10:15)
[2017-09-01 12:00] VITALS: BP 145/71
[2017-09-01 16:00] VITALS: BP 179/85
[2017-09-01] MEDS: LABETALOL HCL 5 MG/ML 20ML VIAL IV PRN (16:45)
[2017-09-01 20:00] VITALS: BP 185/95
[2017-09-02] VITALS (7 sets, daily range): BP systolic 129–213; BP diastolic 76–116
[2017-09-02] MEDS: INSULIN LISPRO 100 UNIT/1 ML 3ML VIAL SQ SCH ×8 (02:47→20:45)
[2017-09-02] MEDS: DEXTROSE 50% SYRINGE 50 ML IV PRN (06:15)
[2017-09-02 06:41] LABS: BASOPHILS # (AUTO) 0.1 (0.0-0.1); BASOPHILS % 0.9 % (0.0-1.0); EOSINOPHILS # (AUTO) 1.4 (0.0-0.4); EOSINOPHILS % 9.7 % (0.0-6.0); HEMATOCRIT 35.2 % (34.2-44.1); LYMPHOCYTES # (AUTO) 2.4 (1.0-3.2); LYMPHOCYTES % 16.5 % (18.0-39.1); MEAN CORPUSCULAR HEMOGLOBIN 26.4 pg (28-32); MEAN CORPUSCULAR HGB CONC 31.3 g/dL (31-35); MEAN CORPUSCULAR VOLUME 84.6 fL (81-99); MONOCYTES # (AUTO) 1.8 (0.2-0.8); MONOCYTES % 12.6 % (4.4-11.3); NEUTROPHILS # (AUTO) 8.6 (2.1-6.9); NEUTROPHILS % 58.7 % (38.7-80.0); PLATELET COUNT 469 x10e3/uL (140-360); RED BLOOD COUNT 4.16 x10e6/uL (3.6-5.1); RED CELL DISTRIBUTION WIDTH 19.1 % (11.7-14.4)
[2017-09-02] MEDS: METOCLOPRAMIDE HCL 10MG/10ML UDC PEG SCH ×3 (06:48→17:44)
[2017-09-02] MEDS: CLONIDINE HCL 0.3 MG TAB PEG SCH ×3 (06:48→20:43)
[2017-09-02] MEDS: HYDRALAZINE HCL 25 MG TAB PO SCH ×3 (06:48→20:43)
[2017-09-02] MEDS: ACETAMINOPHEN 325 MG/10 ML UDC PEG PRN ×2 (06:49→20:44)
[2017-09-02 06:54] LABS: ANION GAP 17.9 mmol/L (8-16); CALCIUM 9.9 mg/dL (8.4-10.2); CREATININE, SERUM 2.5 mg/dL (0.57-1.11); MAGNESIUM 2.5 MG/DL (1.3-2.1); POTASSIUM 3.9 mmol/L (3.5-5.1)
[2017-09-02] MEDS: FAMOTIDINE 20 MG TAB PEG SCH (09:00)
[2017-09-02] MEDS: PHOSPHORUS 250 MG TAB PEG SCH (09:00)
[2017-09-02] MEDS: FERROUS SULFATE 325 MG TAB PEG SCH ×3 (09:00→20:42)
[2017-09-02] MEDS: ZINC SULFATE 220 MG CAP PEG SCH (09:00)
[2017-09-02] MEDS: ASCORBIC ACID 500 MG TAB PEG SCH ×2 (09:00→17:00)
[2017-09-02] MEDS: NIFEDIPINE CR 30 MG TAB PO SCH ×2 (09:00→20:43)
[2017-09-02] MEDS: LABETALOL HCL 200 MG TAB PEG SCH (09:00)
[2017-09-02] MEDS: LEVETIRACETAM ORAL SOLUTION 500 MG/5 ML SOLN PEG SCH ×2 (09:00→20:42)
[2017-09-02] MEDS: COLLAGENASE OINTMENT 30 GM TUBE TP SCH ×2 (09:00→21:00)
[2017-09-02] MEDS: FOLIC ACID/CYANOCOB/PYRIDOXINE TAB PO SCH (09:00)
[2017-09-02] MEDS: INSULIN DETEMIR 100 UNIT/ML PEN SQ SCH ×2 (09:00→20:44)
[2017-09-02 09:11] LABS: EOSINOPHILS % (MANUAL) 11 % (0-7); LYMPHOCYTES % (MANUAL) 18 % (19-48); MONOCYTES % (MANUAL) 8 % (3.4-9.0); MYELOCYTES % (MANUAL) 1 % (0-0); NEUTROPHILS % (MANUAL) 59 % (40-74)
[2017-09-02 09:12] LABS: ANISOCYTOSIS SLIGHT; HYPOCHROMASIA SLIGHT; PLATELET ESTIMATE ADEQUATE; PLATELET MORPHOLOGY COMMENT NORMAL; POIKILOCYTOSIS SLIGHT; RBC MORPHOLOGY COMMENT NORMAL
[2017-09-02] MEDS ORDERED: SODIUM PHOSPHATE IV SCH (12:00)
[2017-09-02] MEDS ORDERED: SODIUM CHLORIDE 0.9% IV SCH (12:00)
--- NOTE | 2017-09-02 14:07 | Diagnostic Imaging Report ---
PROCEDURE: A single AP view of the chest. COMPARISON: Patients [facility], , CHEST SINGLE (PORTABLE), 08/27/2017, 6:23. INDICATIONS: BRAIN INJURY, KIDNEY FAILURE FINDINGS: See impression. IMPRESSION: 1. stable left-sided dialysis catheter and tracheostomy tube. 2. Lungs are grossly clear. No consolidation or effusion. 3. Cardiac silhouette is unremarkable. Pulmonary vasculature is normal. Behzad Oquendo M.D. Dictated by: Behzad Oquendo M.D. on 09/02/2017 at 14:07 Electronically approved by: Behzad Oquendo M.D. on 09/02/2017 at 14:07
[2017-09-03] VITALS (7 sets, daily range): BP systolic 143–185; BP diastolic 70–96
[2017-09-03] MEDS: METOCLOPRAMIDE HCL 10MG/10ML UDC PEG SCH ×4 (00:29→18:00)
[2017-09-03] MEDS: INSULIN LISPRO 100 UNIT/1 ML 3ML VIAL SQ SCH ×8 (01:49→22:36)
[2017-09-03] MEDS: HYDRALAZINE HCL 25 MG TAB PO SCH ×3 (05:49→20:54)
[2017-09-03] MEDS: CLONIDINE HCL 0.3 MG TAB PEG SCH ×3 (05:49→20:54)
[2017-09-03] MEDS: ACETAMINOPHEN 325 MG/10 ML UDC PEG PRN ×2 (05:52→21:00)
[2017-09-03 06:32] LABS: BASOPHILS # (AUTO) 0.1 (0.0-0.1); BASOPHILS % 0.7 % (0.0-1.0); EOSINOPHILS # (AUTO) 0.8 (0.0-0.4); EOSINOPHILS % 5.5 % (0.0-6.0); HEMATOCRIT 33.6 % (34.2-44.1); HEMOGLOBIN 10.8 g/dL (12.0-16.0); LYMPHOCYTES # (AUTO) 1.6 (1.0-3.2); LYMPHOCYTES % 11.3 % (18.0-39.1); MEAN CORPUSCULAR HEMOGLOBIN 27.6 pg (28-32); MEAN CORPUSCULAR HGB CONC 32.1 g/dL (31-35); MEAN CORPUSCULAR VOLUME 85.7 fL (81-99); MONOCYTES # (AUTO) 1.5 (0.2-0.8); MONOCYTES % 10.2 % (4.4-11.3); NEUTROPHILS # (AUTO) 10.3 (2.1-6.9); NEUTROPHILS % 71.1 % (38.7-80.0); PLATELET COUNT 464 x10e3/uL (140-360); RED BLOOD COUNT 3.92 x10e6/uL (3.6-5.1); RED CELL DISTRIBUTION WIDTH 19.2 % (11.7-14.4)
[2017-09-03 06:53] LABS: ANION GAP 23.3 mmol/L (8-16); CALCIUM 9.8 mg/dL (8.4-10.2); CREATININE, SERUM 3.71 mg/dL (0.57-1.11); MAGNESIUM 2.5 MG/DL (1.3-2.1); POTASSIUM 3.3 mmol/L (3.5-5.1)
[2017-09-03] MEDS ORDERED: VANCOMYCIN 1GM/NS 250 ML 250 ML IV SCH (10:15)
[2017-09-03] MEDS: FERROUS SULFATE 325 MG TAB PEG SCH ×3 (10:18→20:53)
[2017-09-03] MEDS: FAMOTIDINE 20 MG TAB PEG SCH (10:18)
[2017-09-03] MEDS: PHOSPHORUS 250 MG TAB PEG SCH (10:18)
[2017-09-03] MEDS: LEVETIRACETAM ORAL SOLUTION 500 MG/5 ML SOLN PEG SCH ×2 (10:18→20:53)
[2017-09-03] MEDS: ASCORBIC ACID 500 MG TAB PEG SCH ×2 (10:18→17:00)
[2017-09-03] MEDS: FOLIC ACID/CYANOCOB/PYRIDOXINE TAB PO SCH (10:19)
[2017-09-03] MEDS: NIFEDIPINE CR 30 MG TAB PO SCH ×2 (10:19→20:54)
[2017-09-03] MEDS: INSULIN DETEMIR 100 UNIT/ML PEN SQ SCH ×2 (10:19→21:00)
[2017-09-03] MEDS: ZINC SULFATE 220 MG CAP PEG SCH (10:19)
--- NOTE | 2017-09-03 11:27 | Diagnostic Imaging Report ---
EXAMINATION: CHEST SINGLE (PORTABLE) INDICATION: Fever COMPARISON: Chest x-ray 08/27/2017 FINDINGS: AP view TUBES and LINES: Stable position of left internal jugular vein tunneled Tessio hemodialysis catheter with tip in the brachiocephalic vein/high SVC. Stable tracheostomy tube. LUNGS: Lungs are not well inflated. There are bibasilar atelectasis. Increasing pulmonary edema. PLEURA: No pleural effusion or pneumothorax. HEART AND MEDIASTINUM: The cardiomediastinal silhouette is unremarkable. BONES AND SOFT TISSUES: No acute osseous lesion. Soft tissues are unremarkable. UPPER ABDOMEN: No free air under the diaphragm. IMPRESSION: Increasing pulmonary edema. Signed by: Dr. Sen Kilgore M.D. on 09/03/2017 11:23 AM
[2017-09-03] MEDS ORDERED: CHOLESTYRAMINE 4 GM PACKET PO PRN (11:30)
[2017-09-03] MEDS ORDERED: CARVEDILOL 12.5 MG TAB PO SCH (17:00)
[2017-09-03] MEDS ORDERED: BISACODYL 5 MG TAB EC PO PRN (18:00)
[2017-09-03] MEDS: DOXAZOSIN MESYLATE 2 MG TAB PEG SCH (20:54)
[2017-09-03] MEDS ORDERED: DOXAZOSIN MESYLATE 2 MG TAB PO SCH (21:00)
[2017-09-04] VITALS (8 sets, daily range): BP systolic 98–129; BP diastolic 56–69
[2017-09-04] MEDS: ACETAMINOPHEN 325 MG/10 ML UDC PEG PRN ×3 (01:11→21:10)
[2017-09-04] MEDS: INSULIN LISPRO 100 UNIT/1 ML 3ML VIAL SQ SCH ×8 (02:00→22:00)
[2017-09-04] MEDS: HYDRALAZINE HCL 25 MG TAB PO SCH ×3 (06:32→21:09)
[2017-09-04] MEDS: METOCLOPRAMIDE HCL 10MG/10ML UDC PEG SCH ×4 (06:32→17:58)
[2017-09-04] MEDS: CLONIDINE HCL 0.3 MG TAB PEG SCH ×3 (06:32→21:09)
[2017-09-04 07:28] LABS: BASOPHILS # (AUTO) 0.1 (0.0-0.1); BASOPHILS % 0.6 % (0.0-1.0); EOSINOPHILS # (AUTO) 0.7 (0.0-0.4); EOSINOPHILS % 3.7 % (0.0-6.0); HEMATOCRIT 37.1 % (34.2-44.1); HEMOGLOBIN 11.5 g/dL (12.0-16.0); LYMPHOCYTES # (AUTO) 2.4 (1.0-3.2); LYMPHOCYTES % 12.4 % (18.0-39.1); MEAN CORPUSCULAR HEMOGLOBIN 26.9 pg (28-32); MEAN CORPUSCULAR VOLUME 86.7 fL (81-99); MONOCYTES # (AUTO) 2.7 (0.2-0.8); MONOCYTES % 14.1 % (4.4-11.3); NEUTROPHILS # (AUTO) 12.9 (2.1-6.9); NEUTROPHILS % 68.3 % (38.7-80.0); PLATELET COUNT 516 x10e3/uL (140-360); RED BLOOD COUNT 4.28 x10e6/uL (3.6-5.1); RED CELL DISTRIBUTION WIDTH 19.6 % (11.7-14.4)
[2017-09-04 07:48] LABS: ANION GAP 23.9 mmol/L (8-16); CALCIUM 10.8 mg/dL (8.4-10.2); CREATININE, SERUM 3.09 mg/dL (0.57-1.11); MAGNESIUM 2.5 MG/DL (1.3-2.1); PHOSPHORUS 3.4 MG/DL (2.3-4.7); POTASSIUM 3.9 mmol/L (3.5-5.1)
[2017-09-04] MEDS: LABETALOL HCL 200 MG TAB PO SCH (09:00)
[2017-09-04] MEDS: NIFEDIPINE CR 30 MG TAB PO SCH ×2 (09:00→20:44)
[2017-09-04] MEDS: DOXAZOSIN MESYLATE 2 MG TAB PEG SCH ×2 (09:00→20:44)
[2017-09-04] MEDS: FERROUS SULFATE 325 MG TAB PEG SCH ×3 (09:30→21:09)
[2017-09-04] MEDS: ZINC SULFATE 220 MG CAP PEG SCH (09:30)
[2017-09-04] MEDS: FOLIC ACID/CYANOCOB/PYRIDOXINE TAB PO SCH (09:30)
[2017-09-04] MEDS: ASCORBIC ACID 500 MG TAB PEG SCH ×2 (09:30→17:58)
[2017-09-04] MEDS: FAMOTIDINE 20 MG TAB PEG SCH (09:30)
[2017-09-04] MEDS: LEVETIRACETAM ORAL SOLUTION 500 MG/5 ML SOLN PEG SCH ×2 (09:30→21:09)
[2017-09-04] MEDS: CEFEPIME HCL 1 GM VIAL IV SCH (09:30)
[2017-09-04] MEDS: INSULIN DETEMIR 100 UNIT/ML PEN SQ SCH ×2 (09:57→21:00)
[2017-09-04] MEDS: COLLAGENASE OINTMENT 30 GM TUBE TP SCH (11:20)
[2017-09-04 12:41] LABS: BAND NEUTROPHILS % (MANUAL) 1 %; LYMPHOCYTES % (MANUAL) 13 % (19-48); MONOCYTES % (MANUAL) 15 % (3.4-9.0); NEUTROPHILS % (MANUAL) 71 % (40-74)
[2017-09-04 12:42] LABS: PLATELET ESTIMATE ADEQUATE; PLATELET MORPHOLOGY COMMENT NORMAL; RBC MORPHOLOGY COMMENT NORMAL
[2017-09-04] MEDS: TOBRAMYCIN 40MG/ML 30ML MDV INH SCH (19:00)
[2017-09-05] VITALS (7 sets, daily range): BP systolic 92–129; BP diastolic 54–79
[2017-09-05] MEDS: INSULIN LISPRO 100 UNIT/1 ML 3ML VIAL SQ SCH ×8 (02:00→22:30)
[2017-09-05] MEDS: CLONIDINE HCL 0.3 MG TAB PEG SCH ×4 (06:00→22:30)
[2017-09-05] MEDS: HYDRALAZINE HCL 25 MG TAB PO SCH ×3 (06:00→22:00)
[2017-09-05] MEDS: METOCLOPRAMIDE HCL 10MG/10ML UDC PEG SCH ×4 (06:28→17:37)
[2017-09-05 06:42] LABS: BASOPHILS # (AUTO) 0.1 (0.0-0.1); BASOPHILS % 0.5 % (0.0-1.0); EOSINOPHILS # (AUTO) 1.1 (0.0-0.4); EOSINOPHILS % 6.4 % (0.0-6.0); HEMATOCRIT 37.3 % (34.2-44.1); HEMOGLOBIN 11.9 g/dL (12.0-16.0); LYMPHOCYTES # (AUTO) 2.6 (1.0-3.2); LYMPHOCYTES % 14.6 % (18.0-39.1); MEAN CORPUSCULAR HGB CONC 31.9 g/dL (31-35); MEAN CORPUSCULAR VOLUME 84.6 fL (81-99); MONOCYTES # (AUTO) 1.8 (0.2-0.8); MONOCYTES % 10.3 % (4.4-11.3); NEUTROPHILS # (AUTO) 11.8 (2.1-6.9); NEUTROPHILS % 67.2 % (38.7-80.0); PLATELET COUNT 495 x10e3/uL (140-360); RED BLOOD COUNT 4.41 x10e6/uL (3.6-5.1); RED CELL DISTRIBUTION WIDTH 18.7 % (11.7-14.4)
--- NOTE | 2017-09-05 06:46 | Diagnostic Imaging Report ---
CHEST SINGLE (PORTABLE), 09/05/2017 7:00 AM Technique: CHEST SINGLE (PORTABLE) Comparison: Previous day Clinical history: Cough Findings: See Impression Impression: 1. Lines/Tubes: Stable tracheostomy and left hemodialysis catheter with tips over the brachiocephalic vein/high SVC. 2. Stable cardiac silhouette 3. Diffuse opacity, favor underlying edema. Stable left basilar atelectasis or consolidation. 4. No significant effusion. Signed by: Dr Maya Martinez MD on 09/05/2017 6:43 AM
[2017-09-05] MEDS: TOBRAMYCIN 40MG/ML 30ML MDV INH SCH ×2 (07:00→19:22)
[2017-09-05 07:08] LABS: ALBUMIN 2.4 g/dL (3.5-5.0); ALBUMIN/GLOBULIN RATIO 0.5 (0.8-2.0); CALCIUM 11.3 mg/dL (8.4-10.2); CREATININE, SERUM 4.25 mg/dL (0.57-1.11)
[2017-09-05 07:43] LABS: EOSINOPHILS % (MANUAL) 5 % (0-7); LYMPHOCYTES % (MANUAL) 16 % (19-48); MONOCYTES % (MANUAL) 3 % (3.4-9.0); NEUTROPHILS % (MANUAL) 73 % (40-74)
[2017-09-05 07:44] LABS: ANISOCYTOSIS MODERATE; RBC MORPHOLOGY COMMENT NORMAL
[2017-09-05 07:45] LABS: PLATELET ESTIMATE SLIGHTLY INCREASED; PLATELET MORPHOLOGY COMMENT FEW LARGE; POIKILOCYTOSIS SLIGHT
[2017-09-05] MEDS: LABETALOL HCL 200 MG TAB PO SCH (09:00)
[2017-09-05] MEDS: INSULIN DETEMIR 100 UNIT/ML PEN SQ SCH ×2 (09:00→22:30)
[2017-09-05] MEDS: CEFEPIME HCL 1 GM VIAL IV SCH (09:50)
[2017-09-05] MEDS: LEVETIRACETAM ORAL SOLUTION 500 MG/5 ML SOLN PEG SCH ×2 (09:51→22:42)
[2017-09-05] MEDS: FAMOTIDINE 20 MG TAB PEG SCH (09:51)
[2017-09-05] MEDS: DOXAZOSIN MESYLATE 2 MG TAB PEG SCH ×3 (09:51→22:30)
[2017-09-05] MEDS: FOLIC ACID/CYANOCOB/PYRIDOXINE TAB PO SCH (09:51)
[2017-09-05] MEDS: ZINC SULFATE 220 MG CAP PEG SCH (09:51)
[2017-09-05] MEDS: ASCORBIC ACID 500 MG TAB PEG SCH ×2 (09:51→17:00)
[2017-09-05] MEDS: FERROUS SULFATE 325 MG TAB PEG SCH ×3 (09:51→22:42)
[2017-09-05] MEDS: COLLAGENASE OINTMENT 30 GM TUBE TP SCH (09:52)
[2017-09-05] MEDS: NIFEDIPINE CR 30 MG TAB PO SCH ×3 (09:52→22:30)
[2017-09-05] MEDS ORDERED: SOD POLYSTYRENE SULFONATE SUSP 15 GM/60 ML BTL PO ONE (10:30)
[2017-09-05 12:29] LABS: ANION GAP 28.9 mmol/L (8-16); CALCIUM 10.8 mg/dL (8.4-10.2); CREATININE, SERUM 4.71 mg/dL (0.57-1.11); POTASSIUM 5.9 mmol/L (3.5-5.1)
[2017-09-05 13:18] LABS: OCCULT BLOOD STOOL POSITIVE (NEGATIVE)
[2017-09-05 14:19] LABS: C DIFFICILE TOXIN A&B AMP PROB NEGATIVE (NEGATIVE)
[2017-09-06] VITALS: BP 125/67
[2017-09-06] MEDS: METOCLOPRAMIDE HCL 10MG/10ML UDC PEG SCH ×4 (00:36→17:02)
[2017-09-06] MEDS: CLONIDINE HCL 0.3 MG TAB PEG SCH ×4 (00:39→14:00)
[2017-09-06] MEDS: INSULIN LISPRO 100 UNIT/1 ML 3ML VIAL SQ SCH ×8 (02:30→22:00)
[2017-09-06 04:00] VITALS: BP 137/79
[2017-09-06] MEDS: HYDRALAZINE HCL 25 MG TAB PO SCH ×3 (05:48→22:00)
[2017-09-06 06:26] LABS: BASOPHILS # (AUTO) 0.1 (0.0-0.1); BASOPHILS % 0.6 % (0.0-1.0); EOSINOPHILS # (AUTO) 1.1 (0.0-0.4); EOSINOPHILS % 7.5 % (0.0-6.0); HEMATOCRIT 34.1 % (34.2-44.1); HEMOGLOBIN 10.9 g/dL (12.0-16.0); LYMPHOCYTES % 13.7 % (18.0-39.1); MEAN CORPUSCULAR HEMOGLOBIN 26.8 pg (28-32); MONOCYTES # (AUTO) 1.4 (0.2-0.8); MONOCYTES % 9.7 % (4.4-11.3); NEUTROPHILS # (AUTO) 9.6 (2.1-6.9); NEUTROPHILS % 67.7 % (38.7-80.0); PLATELET COUNT 465 x10e3/uL (140-360); RED BLOOD COUNT 4.06 x10e6/uL (3.6-5.1); RED CELL DISTRIBUTION WIDTH 18.2 % (11.7-14.4)
[2017-09-06 06:45] LABS: CREATININE, SERUM 2.76 mg/dL (0.57-1.11); MAGNESIUM 2.3 MG/DL (1.3-2.1)
[2017-09-06] MEDS: TOBRAMYCIN 40MG/ML 30ML MDV INH SCH ×2 (07:00→20:00)
[2017-09-06 08:03] VITALS: BP 177/98
[2017-09-06] MEDS: LABETALOL HCL 200 MG TAB PO SCH (09:00)
[2017-09-06 09:30] VITALS: BP 177/98
[2017-09-06] MEDS: ZINC SULFATE 220 MG CAP PEG SCH (09:41)
[2017-09-06] MEDS: FOLIC ACID/CYANOCOB/PYRIDOXINE TAB PO SCH (09:41)
[2017-09-06] MEDS: DOXAZOSIN MESYLATE 2 MG TAB PEG SCH ×2 (09:41→22:45)
[2017-09-06] MEDS: FAMOTIDINE 20 MG TAB PEG SCH (09:41)
[2017-09-06] MEDS: ASCORBIC ACID 500 MG TAB PEG SCH ×2 (09:41→17:00)
[2017-09-06] MEDS: FERROUS SULFATE 325 MG TAB PEG SCH ×3 (09:41→20:28)
[2017-09-06] MEDS: LEVETIRACETAM ORAL SOLUTION 500 MG/5 ML SOLN PEG SCH ×2 (09:41→20:28)
[2017-09-06] MEDS: CEFEPIME HCL 1 GM VIAL IV SCH (09:41)
[2017-09-06] MEDS: NIFEDIPINE CR 30 MG TAB PO SCH (09:42)
[2017-09-06] MEDS: INSULIN DETEMIR 100 UNIT/ML PEN SQ SCH ×2 (09:43→21:00)
[2017-09-06] MEDS: COLLAGENASE OINTMENT 30 GM TUBE TP SCH (09:43)
[2017-09-06] MEDS ORDERED: GENTAMICIN 60MG/NS 50ML 50 ML IV SCH (11:00)
[2017-09-06 11:59] VITALS: BP 106/60
[2017-09-06] MEDS: MEROPENEM 500 MG VIAL IV SCH (14:00)
[2017-09-06 15:53] VITALS: BP 121/68
[2017-09-06] MEDS ORDERED: GENTAMICIN 60MG/NS 50ML 50 ML IV PRN (18:00)
[2017-09-07] VITALS (7 sets, daily range): BP systolic 89–156; BP diastolic 50–80
[2017-09-07] MEDS: NIFEDIPINE CR 30 MG TAB PO SCH ×2 (01:39→09:22)
[2017-09-07] MEDS: METOCLOPRAMIDE HCL 10MG/10ML UDC PEG SCH ×4 (01:40→18:00)
[2017-09-07] MEDS: INSULIN LISPRO 100 UNIT/1 ML 3ML VIAL SQ SCH ×7 (02:30→18:00)
[2017-09-07] MEDS: CLONIDINE HCL 0.3 MG TAB PEG SCH ×2 (06:00→14:00)
[2017-09-07] MEDS: HYDRALAZINE HCL 25 MG TAB PO SCH ×2 (06:00→14:00)
[2017-09-07 06:36] LABS: BASOPHILS # (AUTO) 0.1 (0.0-0.1); BASOPHILS % 0.7 % (0.0-1.0); EOSINOPHILS # (AUTO) 0.9 (0.0-0.4); EOSINOPHILS % 7.4 % (0.0-6.0); HEMATOCRIT 34.3 % (34.2-44.1); HEMOGLOBIN 10.9 g/dL (12.0-16.0); LYMPHOCYTES # (AUTO) 2.5 (1.0-3.2); LYMPHOCYTES % 19.6 % (18.0-39.1); MEAN CORPUSCULAR HEMOGLOBIN 26.9 pg (28-32); MEAN CORPUSCULAR HGB CONC 31.8 g/dL (31-35); MEAN CORPUSCULAR VOLUME 84.7 fL (81-99); MONOCYTES # (AUTO) 1.4 (0.2-0.8); MONOCYTES % 11.4 % (4.4-11.3); NEUTROPHILS # (AUTO) 7.5 (2.1-6.9); NEUTROPHILS % 59.8 % (38.7-80.0); PLATELET COUNT 498 x10e3/uL (140-360); RED BLOOD COUNT 4.05 x10e6/uL (3.6-5.1)
[2017-09-07 06:57] LABS: CALCIUM 11.2 mg/dL (8.4-10.2); CREATININE, SERUM 4.11 mg/dL (0.57-1.11); MAGNESIUM 2.6 MG/DL (1.3-2.1)
[2017-09-07] MEDS: TOBRAMYCIN 40MG/ML 30ML MDV INH SCH ×2 (07:00→19:40)
[2017-09-07] MEDS ORDERED: MEROPENEM 500MG 500 MG in SODIUM CHLORIDE 0.9% 50ML 50 ML IV SCH (09:00)
[2017-09-07] MEDS: FERROUS SULFATE 325 MG TAB PEG SCH ×2 (09:21→15:00)
[2017-09-07] MEDS: FAMOTIDINE 20 MG TAB PEG SCH (09:21)
[2017-09-07] MEDS: DOXAZOSIN MESYLATE 2 MG TAB PEG SCH (09:21)
[2017-09-07] MEDS: ZINC SULFATE 220 MG CAP PEG SCH (09:21)
[2017-09-07] MEDS: ASCORBIC ACID 500 MG TAB PEG SCH ×2 (09:21→17:00)
[2017-09-07] MEDS: LEVETIRACETAM ORAL SOLUTION 500 MG/5 ML SOLN PEG SCH (09:21)
[2017-09-07] MEDS: LABETALOL HCL 200 MG TAB PO SCH (09:22)
[2017-09-07] MEDS: FOLIC ACID/CYANOCOB/PYRIDOXINE TAB PO SCH (09:22)
[2017-09-07] MEDS: COLLAGENASE OINTMENT 30 GM TUBE TP SCH (09:22)
[2017-09-07] MEDS: INSULIN DETEMIR 100 UNIT/ML PEN SQ SCH ×2 (09:25→22:03)
[2017-09-07] MEDS ORDERED: SODIUM CHLORIDE 0.9% 1000ML 500 ML IV SCH ×2 (11:45→12:00)
[2017-09-07] MEDS ORDERED: PAMIDRONATE DISODIUM 30 MG/VIAL IV ONE (12:00)
[2017-09-07] MEDS ORDERED: PAMIDRONATE DISODIUM 30 MG in SODIUM CHLORIDE 0.9% 250ML 250 ML IV SCH (12:00)
[2017-09-07] MEDS ORDERED: ALBUMIN 25% 12.5GM 0.25 GM/ML BTL IV ONE (12:30)
[2017-09-07] MEDS: MEROPENEM 500 MG VIAL IV SCH (14:00)
[2017-09-07] MEDS ORDERED: VASOPRESSIN 100 UNIT in DEXTROSE 5% 100ML 100 ML IV PRN (17:00)
[2017-09-07] MEDS ORDERED: SODIUM CHLORIDE 0.9% 1000ML 2,000 ML ONE (19:37)
[2017-09-08] VITALS (57 sets, daily range): BP systolic 84–164; BP diastolic 48–98
[2017-09-08] MEDS: INSULIN LISPRO 100 UNIT/1 ML 3ML VIAL SQ SCH ×9 (01:39→21:40)
[2017-09-08] MEDS: NIFEDIPINE CR 30 MG TAB PO SCH ×3 (01:45→21:24)
[2017-09-08] MEDS: LEVETIRACETAM ORAL SOLUTION 500 MG/5 ML SOLN PEG SCH ×3 (01:45→21:24)
[2017-09-08] MEDS: DOXAZOSIN MESYLATE 2 MG TAB PEG SCH ×3 (01:45→21:23)
[2017-09-08] MEDS: CLONIDINE HCL 0.3 MG TAB PEG SCH ×4 (01:45→21:24)
[2017-09-08] MEDS: FERROUS SULFATE 325 MG TAB PEG SCH ×4 (01:45→21:24)
[2017-09-08] MEDS: HYDRALAZINE HCL 25 MG TAB PO SCH ×4 (01:46→21:24)
[2017-09-08] MEDS: METOCLOPRAMIDE HCL 10MG/10ML UDC PEG SCH ×5 (01:46→23:31)
[2017-09-08] MEDS ORDERED: PANTOPRAZOLE 40 MG 10ML VIAL ONE ×2 (04:30→08:52)
[2017-09-08] MEDS: PANTOPRAZOLE 40 MG 10ML VIAL IV SCH ×3 (04:50→21:23)
[2017-09-08 06:29] LABS: BASOPHILS # (AUTO) 0.1 (0.0-0.1); BASOPHILS % 0.5 % (0.0-1.0); EOSINOPHILS # (AUTO) 1.2 (0.0-0.4); EOSINOPHILS % 8.3 % (0.0-6.0); HEMATOCRIT 28.8 % (34.2-44.1); HEMOGLOBIN 9.2 g/dL (12.0-16.0); LYMPHOCYTES % 13.2 % (18.0-39.1); MEAN CORPUSCULAR HEMOGLOBIN 26.8 pg (28-32); MEAN CORPUSCULAR HGB CONC 31.9 g/dL (31-35); MONOCYTES # (AUTO) 1.4 (0.2-0.8); MONOCYTES % 9.5 % (4.4-11.3); NEUTROPHILS % 67.5 % (38.7-80.0); PLATELET COUNT 471 x10e3/uL (140-360); RED BLOOD COUNT 3.43 x10e6/uL (3.6-5.1); RED CELL DISTRIBUTION WIDTH 17.6 % (11.7-14.4)
[2017-09-08 06:50] LABS: ANION GAP 20.4 mmol/L (8-16); CALCIUM 9.3 mg/dL (8.4-10.2); CREATININE, SERUM 1.97 mg/dL (0.57-1.11); MAGNESIUM 2.1 MG/DL (1.3-2.1); POTASSIUM 3.4 mmol/L (3.5-5.1)
--- NOTE | 2017-09-08 07:06 | Diagnostic Imaging Report ---
EXAMINATION: CHEST SINGLE (PORTABLE) INDICATION: Respiratory distress COMPARISON: 09/05/2017 FINDINGS: TUBES and LINES: Left IJ Tessio catheters again noted with tip overlying the distal innominate vein. Tracheostomy tube is stable in good position. LUNGS: Lungs are well inflated. Lungs are clear. There is no evidence of pneumonia or pulmonary edema. PLEURA: No pleural effusion or pneumothorax. HEART AND MEDIASTINUM: The cardiomediastinal silhouette is unremarkable. BONES AND SOFT TISSUES: No acute osseous lesion. Soft tissues are unremarkable. UPPER ABDOMEN: No free air under the diaphragm. IMPRESSION: No acute thoracic abnormality. Signed by: Dr. Sundar Reynolds M.D. on 09/08/2017 7:02 AM
[2017-09-08] MEDS: TOBRAMYCIN 40MG/ML 30ML MDV INH SCH ×2 (07:30→19:00)
[2017-09-08] MEDS: INSULIN DETEMIR 100 UNIT/ML PEN SQ SCH ×2 (08:02→21:40)
[2017-09-08] MEDS: ASCORBIC ACID 500 MG TAB PEG SCH ×2 (08:53→17:47)
[2017-09-08] MEDS: LABETALOL HCL 200 MG TAB PO SCH (09:00)
[2017-09-08] MEDS ORDERED: POTASSIUM CHLORIDE 20MEQ/15ML UDC ONE (09:04)
[2017-09-08] MEDS: FAMOTIDINE 20 MG TAB PEG SCH (09:18)
[2017-09-08] MEDS: ZINC SULFATE 220 MG CAP PEG SCH (09:18)
[2017-09-08 10:08] LABS: FOLATE 37.7 ng/mL (7.0-15.4)
[2017-09-08] MEDS: FOLIC ACID/CYANOCOB/PYRIDOXINE TAB PO SCH (12:07)
[2017-09-08] MEDS ORDERED: POTASSIUM CHLORIDE 20MEQ/15ML UDC NG ONE (12:15)
[2017-09-08] MEDS: MEROPENEM 500 MG VIAL IV SCH (14:20)
[2017-09-08 16:58] LABS: INR 1.17; PARTIAL THROMBOPLASTIN TIME 31.5 seconds (23.8-35.5)
[2017-09-08 17:38] LABS: ABG HCO3 33 mmol/L (23-28); ABG PCO2 42 mmHg (41-51); ABG PH 7.51 (7.31-7.41); ABG PO2 298 mmHg (80-105)
[2017-09-08] MEDS: COLLAGENASE OINTMENT 30 GM TUBE TP SCH (17:47)
[2017-09-09] VITALS (59 sets, daily range): BP systolic 91–141; BP diastolic 58–99
[2017-09-09] MEDS: INSULIN LISPRO 100 UNIT/1 ML 3ML VIAL SQ SCH ×8 (02:44→20:55)
[2017-09-09] MEDS ORDERED: BISACODYL 10 MG SUPP PR ONE (05:15)
[2017-09-09] MEDS: CLONIDINE HCL 0.3 MG TAB PEG SCH ×3 (05:35→20:46)
[2017-09-09] MEDS: METOCLOPRAMIDE HCL 10MG/10ML UDC PEG SCH ×3 (05:35→18:38)
[2017-09-09] MEDS: HYDRALAZINE HCL 25 MG TAB PO SCH ×3 (05:36→20:46)
[2017-09-09 06:07] LABS: BASOPHILS # (AUTO) 0.1 (0.0-0.1); BASOPHILS % 0.7 % (0.0-1.0); EOSINOPHILS # (AUTO) 1.3 (0.0-0.4); EOSINOPHILS % 10.2 % (0.0-6.0); HEMATOCRIT 30.1 % (34.2-44.1); HEMOGLOBIN 9.5 g/dL (12.0-16.0); LYMPHOCYTES # (AUTO) 2.7 (1.0-3.2); LYMPHOCYTES % 22.3 % (18.0-39.1); MEAN CORPUSCULAR HEMOGLOBIN 26.5 pg (28-32); MEAN CORPUSCULAR HGB CONC 31.6 g/dL (31-35); MEAN CORPUSCULAR VOLUME 83.8 fL (81-99); MONOCYTES # (AUTO) 1.2 (0.2-0.8); MONOCYTES % 9.4 % (4.4-11.3); NEUTROPHILS # (AUTO) 6.9 (2.1-6.9); NEUTROPHILS % 56.2 % (38.7-80.0); PLATELET COUNT 491 x10e3/uL (140-360); RED BLOOD COUNT 3.59 x10e6/uL (3.6-5.1); RED CELL DISTRIBUTION WIDTH 17.6 % (11.7-14.4)
[2017-09-09 06:39] LABS: ANION GAP 21.6 mmol/L (8-16); CALCIUM 10.5 mg/dL (8.4-10.2); MAGNESIUM 2.7 MG/DL (1.3-2.1); PHOSPHORUS 4.4 MG/DL (2.3-4.7); POTASSIUM 4.6 mmol/L (3.5-5.1)
[2017-09-09 06:49] LABS: CREATININE, SERUM 3.23 mg/dL (0.57-1.11)
[2017-09-09] MEDS: TOBRAMYCIN 40MG/ML 30ML MDV INH SCH ×2 (08:46→19:08)
[2017-09-09] MEDS: NIFEDIPINE CR 30 MG TAB PO SCH ×2 (09:00→20:45)
[2017-09-09] MEDS: LABETALOL HCL 200 MG TAB PO SCH (09:00)
[2017-09-09] MEDS: DOXAZOSIN MESYLATE 2 MG TAB PEG SCH ×2 (09:00→20:45)
[2017-09-09] MEDS: PANTOPRAZOLE 40 MG 10ML VIAL IV SCH ×2 (10:46→20:45)
[2017-09-09] MEDS: FOLIC ACID/CYANOCOB/PYRIDOXINE TAB PO SCH (10:54)
[2017-09-09] MEDS: FERROUS SULFATE 325 MG TAB PEG SCH ×3 (10:54→20:45)
[2017-09-09] MEDS: FAMOTIDINE 20 MG TAB PEG SCH (10:54)
[2017-09-09] MEDS: ZINC SULFATE 220 MG CAP PEG SCH (10:54)
[2017-09-09] MEDS: ASCORBIC ACID 500 MG TAB PEG SCH ×2 (10:54→18:38)
[2017-09-09] MEDS: LEVETIRACETAM ORAL SOLUTION 500 MG/5 ML SOLN PEG SCH ×2 (10:54→20:45)
[2017-09-09] MEDS: COLLAGENASE OINTMENT 30 GM TUBE TP SCH (10:55)
[2017-09-09] MEDS: INSULIN DETEMIR 100 UNIT/ML PEN SQ SCH ×2 (10:56→20:54)
[2017-09-09] MEDS: EPOETIN ALFA 10000 UNIT/ML VIAL SC SCH (12:58)
[2017-09-09] MEDS ORDERED: HEPARIN SOD (PORCINE) 1000 UNIT/ML SDV ONE (13:11)
[2017-09-09] MEDS: MEROPENEM 500 MG VIAL IV SCH (15:00)
[2017-09-09] MEDS: GENTAMICIN 60MG/NS 50ML 50 ML IV SCH (19:43)
[2017-09-10] VITALS (23 sets, daily range): BP systolic 95–149; BP diastolic 58–90
[2017-09-10] MEDS: INSULIN LISPRO 100 UNIT/1 ML 3ML VIAL SQ SCH ×8 (01:10→22:00)
[2017-09-10] MEDS: METOCLOPRAMIDE HCL 10MG/10ML UDC PEG SCH ×5 (04:58→23:44)
[2017-09-10] MEDS: HYDRALAZINE HCL 25 MG TAB PO SCH ×3 (05:16→21:33)
[2017-09-10] MEDS: CLONIDINE HCL 0.3 MG TAB PEG SCH ×3 (05:16→21:33)
[2017-09-10 06:14] LABS: BASOPHILS # (AUTO) 0.1 (0.0-0.1); BASOPHILS % 0.6 % (0.0-1.0); EOSINOPHILS # (AUTO) 1.4 (0.0-0.4); EOSINOPHILS % 7.7 % (0.0-6.0); HEMATOCRIT 28.9 % (34.2-44.1); LYMPHOCYTES # (AUTO) 2.2 (1.0-3.2); LYMPHOCYTES % 12.2 % (18.0-39.1); MEAN CORPUSCULAR HEMOGLOBIN 26.6 pg (28-32); MEAN CORPUSCULAR HGB CONC 31.1 g/dL (31-35); MEAN CORPUSCULAR VOLUME 85.5 fL (81-99); MONOCYTES % 5.3 % (4.4-11.3); NEUTROPHILS # (AUTO) 13.5 (2.1-6.9); NEUTROPHILS % 73.3 % (38.7-80.0); PLATELET COUNT 440 x10e3/uL (140-360); RED BLOOD COUNT 3.38 x10e6/uL (3.6-5.1); RED CELL DISTRIBUTION WIDTH 17.6 % (11.7-14.4)
[2017-09-10 06:33] LABS: ANION GAP 21.3 mmol/L (8-16); CALCIUM 10.2 mg/dL (8.4-10.2); CREATININE, SERUM 2.56 mg/dL (0.57-1.11); POTASSIUM 3.3 mmol/L (3.5-5.1)
--- NOTE | 2017-09-10 07:26 | Diagnostic Imaging Report ---
EXAMINATION: Chest, CHEST SINGLE (PORTABLE) INDICATION: Chest pain COMPARISON: Portable chest 09/08/2017 FINDINGS: LINES: No change in proper position of the tracheostomy catheter and left internal jugular tunneled central venous catheter. Heart: Normal cardiac silhouette. Vascular: The pulmonary vasculature is within normal limits. Mediastinum: No mediastinal, hilar, or axillary mass or lymphadenopathy. Lungs: No parenchymal mass. No focal consolidation. Pleura: No pleural effusion. No pneumothorax. Bones: No acute osseous abnormality. Soft tissues: Normal. Impression: No acute radiographic abnormality. Signed by: Dr. Easton Donaldson M.D. on 09/10/2017 7:23 AM
[2017-09-10] MEDS: TOBRAMYCIN 40MG/ML 30ML MDV INH SCH ×2 (08:13→19:10)
[2017-09-10] MEDS ORDERED: POTASSIUM CHLORIDE 20MEQ/15ML UDC NG ONE (09:30)
[2017-09-10] MEDS: DOXAZOSIN MESYLATE 2 MG TAB PEG SCH ×2 (10:42→21:17)
[2017-09-10] MEDS: FERROUS SULFATE 325 MG TAB PEG SCH ×3 (10:42→21:17)
[2017-09-10] MEDS: PANTOPRAZOLE 40 MG 10ML VIAL IV SCH ×2 (10:42→21:16)
[2017-09-10] MEDS: FAMOTIDINE 20 MG TAB PEG SCH (10:43)
[2017-09-10] MEDS: ASCORBIC ACID 500 MG TAB PEG SCH ×2 (10:43→18:57)
[2017-09-10] MEDS: NIFEDIPINE CR 30 MG TAB PO SCH ×2 (10:43→21:18)
[2017-09-10] MEDS: COLLAGENASE OINTMENT 30 GM TUBE TP SCH (10:43)
[2017-09-10] MEDS: LEVETIRACETAM ORAL SOLUTION 500 MG/5 ML SOLN PEG SCH ×2 (10:43→21:17)
[2017-09-10] MEDS: FOLIC ACID/CYANOCOB/PYRIDOXINE TAB PO SCH (10:43)
[2017-09-10] MEDS: LABETALOL HCL 200 MG TAB PO SCH (10:43)
[2017-09-10] MEDS: ZINC SULFATE 220 MG CAP PEG SCH (10:43)
[2017-09-10] MEDS: INSULIN DETEMIR 100 UNIT/ML PEN SQ SCH ×2 (10:44→21:19)
[2017-09-10] MEDS: MEROPENEM 500 MG VIAL IV SCH (18:00)
[2017-09-11] VITALS (31 sets, daily range): BP systolic 98–156; BP diastolic 52–93
[2017-09-11] MEDS: INSULIN LISPRO 100 UNIT/1 ML 3ML VIAL SQ SCH ×8 (02:24→22:53)
[2017-09-11] MEDS: CLONIDINE HCL 0.3 MG TAB PEG SCH ×3 (06:28→20:56)
[2017-09-11] MEDS: HYDRALAZINE HCL 25 MG TAB PO SCH ×3 (06:28→20:56)
[2017-09-11] MEDS: METOCLOPRAMIDE HCL 10MG/10ML UDC PEG SCH ×4 (06:28→23:33)
[2017-09-11 06:36] LABS: BASOPHILS # (AUTO) 0.1 (0.0-0.1); BASOPHILS % 0.4 % (0.0-1.0); EOSINOPHILS # (AUTO) 1.8 (0.0-0.4); EOSINOPHILS % 10.9 % (0.0-6.0); HEMOGLOBIN 9.2 g/dL (12.0-16.0); MEAN CORPUSCULAR HEMOGLOBIN 26.4 pg (28-32); MEAN CORPUSCULAR HGB CONC 30.7 g/dL (31-35); MEAN CORPUSCULAR VOLUME 86.2 fL (81-99); MONOCYTES # (AUTO) 1.1 (0.2-0.8); MONOCYTES % 6.6 % (4.4-11.3); NEUTROPHILS # (AUTO) 11.5 (2.1-6.9); NEUTROPHILS % 69.5 % (38.7-80.0); PLATELET COUNT 509 x10e3/uL (140-360); RED BLOOD COUNT 3.48 x10e6/uL (3.6-5.1); RED CELL DISTRIBUTION WIDTH 17.4 % (11.7-14.4)
[2017-09-11 06:49] LABS: ANION GAP 24.9 mmol/L (8-16); CALCIUM 10.2 mg/dL (8.4-10.2); CREATININE, SERUM 3.67 mg/dL (0.57-1.11); POTASSIUM 4.9 mmol/L (3.5-5.1)
[2017-09-11] MEDS: TOBRAMYCIN 40MG/ML 30ML MDV INH SCH (07:51)
[2017-09-11] MEDS: NIFEDIPINE CR 30 MG TAB PO SCH (09:00)
[2017-09-11] MEDS: PANTOPRAZOLE 40 MG 10ML VIAL IV SCH ×2 (09:52→20:31)
[2017-09-11] MEDS: DOXAZOSIN MESYLATE 2 MG TAB PEG SCH ×2 (09:52→20:32)
[2017-09-11] MEDS: LABETALOL HCL 200 MG TAB PO SCH (09:52)
[2017-09-11] MEDS: ASCORBIC ACID 500 MG TAB PEG SCH ×2 (09:52→16:00)
[2017-09-11] MEDS: FERROUS SULFATE 325 MG TAB PEG SCH ×3 (09:52→20:32)
[2017-09-11] MEDS: FOLIC ACID/CYANOCOB/PYRIDOXINE TAB PO SCH (09:52)
[2017-09-11] MEDS: LEVETIRACETAM ORAL SOLUTION 500 MG/5 ML SOLN PEG SCH ×2 (09:52→20:32)
[2017-09-11] MEDS: ZINC SULFATE 220 MG CAP PEG SCH (09:52)
[2017-09-11] MEDS: COLLAGENASE OINTMENT 30 GM TUBE TP SCH (09:52)
[2017-09-11] MEDS: FAMOTIDINE 20 MG TAB PEG SCH (09:52)
[2017-09-11] MEDS: INSULIN DETEMIR 100 UNIT/ML PEN SQ SCH ×2 (09:53→20:40)
[2017-09-11 11:46] LABS: EOSINOPHILS % (MANUAL) 14 % (0-7); LYMPHOCYTES % (MANUAL) 12 % (19-48); MONOCYTES % (MANUAL) 9 % (3.4-9.0); NEUTROPHILS % (MANUAL) 65 % (40-74)
[2017-09-11 11:47] LABS: PLATELET ESTIMATE SLIGHTLY INCREASED; PLATELET MORPHOLOGY COMMENT NORMAL; RBC MORPHOLOGY COMMENT NORMAL
[2017-09-11] MEDS: MEROPENEM 500 MG VIAL IV SCH (15:46)
[2017-09-11] MEDS: DEXTROSE 50% SYRINGE 50 ML IV PRN (20:42)
[2017-09-12] VITALS (85 sets, daily range): BP systolic 85–178; BP diastolic 46–103
[2017-09-12] MEDS: INSULIN LISPRO 100 UNIT/1 ML 3ML VIAL SQ SCH ×8 (02:00→21:13)
[2017-09-12] MEDS: DEXTROSE 50% SYRINGE 50 ML IV PRN (02:29)
[2017-09-12] MEDS: CLONIDINE HCL 0.3 MG TAB PEG SCH ×3 (06:07→22:14)
[2017-09-12] MEDS: METOCLOPRAMIDE HCL 10MG/10ML UDC PEG SCH ×4 (06:07→23:31)
[2017-09-12 06:08] LABS: BASOPHILS # (AUTO) 0.1 (0.0-0.1); BASOPHILS % 0.4 % (0.0-1.0); HEMATOCRIT 30.6 % (34.2-44.1); HEMOGLOBIN 9.7 g/dL (12.0-16.0); LYMPHOCYTES # (AUTO) 1.8 (1.0-3.2); LYMPHOCYTES % 11.1 % (18.0-39.1); MEAN CORPUSCULAR HGB CONC 31.7 g/dL (31-35); MEAN CORPUSCULAR VOLUME 85.2 fL (81-99); MONOCYTES % 5.9 % (4.4-11.3); NEUTROPHILS # (AUTO) 11.4 (2.1-6.9); NEUTROPHILS % 69.9 % (38.7-80.0); PLATELET COUNT 540 x10e3/uL (140-360); RED BLOOD COUNT 3.59 x10e6/uL (3.6-5.1); RED CELL DISTRIBUTION WIDTH 17.2 % (11.7-14.4)
[2017-09-12] MEDS: HYDRALAZINE HCL 25 MG TAB PO SCH ×3 (06:08→22:14)
[2017-09-12 06:23] LABS: ANION GAP 27.2 mmol/L (8-16); CALCIUM 10.3 mg/dL (8.4-10.2); CREATININE, SERUM 4.62 mg/dL (0.57-1.11); POTASSIUM 5.2 mmol/L (3.5-5.1)
[2017-09-12] MEDS: LABETALOL HCL 200 MG TAB PO SCH (09:00)
[2017-09-12] MEDS: DOXAZOSIN MESYLATE 2 MG TAB PEG SCH ×2 (09:00→20:01)
[2017-09-12 09:11] LABS: ANISOCYTOSIS SLIGHT; EOSINOPHILS % (MANUAL) 9 % (0-7); HYPOCHROMASIA SLIGHT; LYMPHOCYTES % (MANUAL) 10 % (19-48); MONOCYTES % (MANUAL) 5 % (3.4-9.0); NEUTROPHILS % (MANUAL) 76 % (40-74); PLATELET ESTIMATE SLIGHTLY INCREASED; PLATELET MORPHOLOGY COMMENT NORMAL; RBC MORPHOLOGY COMMENT NORMAL; SMUDGE CELLS FEW
[2017-09-12] MEDS: COLLAGENASE OINTMENT 30 GM TUBE TP SCH (09:43)
[2017-09-12] MEDS ORDERED: HEPARIN SOD (PORCINE) 1000 UNIT/ML SDV ONE (10:02)
[2017-09-12] MEDS: FERROUS SULFATE 325 MG TAB PEG SCH ×3 (10:23→20:01)
[2017-09-12] MEDS: FAMOTIDINE 20 MG TAB PEG SCH (10:23)
[2017-09-12] MEDS: ASCORBIC ACID 500 MG TAB PEG SCH ×2 (10:23→17:33)
[2017-09-12] MEDS: PANTOPRAZOLE 40 MG 10ML VIAL IV SCH ×2 (10:23→20:00)
[2017-09-12] MEDS: LEVETIRACETAM ORAL SOLUTION 500 MG/5 ML SOLN PEG SCH ×2 (10:23→20:01)
[2017-09-12] MEDS: ZINC SULFATE 220 MG CAP PEG SCH (10:23)
[2017-09-12] MEDS: FOLIC ACID/CYANOCOB/PYRIDOXINE TAB PO SCH (10:24)
[2017-09-12] MEDS: INSULIN DETEMIR 100 UNIT/ML PEN SQ SCH ×2 (11:00→20:02)
[2017-09-12] MEDS: EPOETIN ALFA 10000 UNIT/ML VIAL SC SCH (13:06)
[2017-09-12] MEDS: MEROPENEM 500 MG VIAL IV SCH (13:52)
[2017-09-12] MEDS: GENTAMICIN 60MG/NS 50ML 50 ML IV SCH (14:07)
[2017-09-13] VITALS (34 sets, daily range): BP systolic 90–169; BP diastolic 46–89
[2017-09-13] MEDS: INSULIN LISPRO 100 UNIT/1 ML 3ML VIAL SQ SCH ×8 (03:33→21:24)
[2017-09-13] MEDS: METOCLOPRAMIDE HCL 10MG/10ML UDC PEG SCH ×4 (05:25→23:10)
[2017-09-13] MEDS: CLONIDINE HCL 0.3 MG TAB PEG SCH ×4 (05:25→21:02)
[2017-09-13] MEDS: HYDRALAZINE HCL 25 MG TAB PO SCH ×3 (05:25→21:03)
[2017-09-13] MEDS: DOXAZOSIN MESYLATE 2 MG TAB PEG SCH ×2 (09:00→20:19)
[2017-09-13] MEDS: FERROUS SULFATE 325 MG TAB PEG SCH ×3 (09:32→20:19)
[2017-09-13] MEDS: PANTOPRAZOLE 40 MG 10ML VIAL IV SCH ×2 (09:32→20:18)
[2017-09-13] MEDS: FOLIC ACID/CYANOCOB/PYRIDOXINE TAB PO SCH (09:33)
[2017-09-13] MEDS: LEVETIRACETAM ORAL SOLUTION 500 MG/5 ML SOLN PEG SCH ×2 (09:33→20:19)
[2017-09-13] MEDS: LABETALOL HCL 200 MG TAB PO SCH (09:33)
[2017-09-13] MEDS: ASCORBIC ACID 500 MG TAB PEG SCH ×2 (09:33→17:06)
[2017-09-13] MEDS: COLLAGENASE OINTMENT 30 GM TUBE TP SCH (09:33)
[2017-09-13] MEDS: FAMOTIDINE 20 MG TAB PEG SCH (09:33)
[2017-09-13] MEDS: ZINC SULFATE 220 MG CAP PEG SCH (09:33)
[2017-09-13] MEDS: INSULIN DETEMIR 100 UNIT/ML PEN SQ SCH ×2 (09:50→20:26)
[2017-09-14] VITALS (71 sets, daily range): BP systolic 95–148; BP diastolic 43–77
[2017-09-14] MEDS: INSULIN LISPRO 100 UNIT/1 ML 3ML VIAL SQ SCH ×8 (00:53→22:00)
[2017-09-14] MEDS: DEXTROSE 50% SYRINGE 50 ML IV PRN (00:54)
[2017-09-14] MEDS: METOCLOPRAMIDE HCL 10MG/10ML UDC PEG SCH ×4 (05:07→23:34)
[2017-09-14] MEDS: CLONIDINE HCL 0.3 MG TAB PEG SCH ×3 (05:07→22:00)
[2017-09-14] MEDS: HYDRALAZINE HCL 25 MG TAB PO SCH ×3 (05:07→22:00)
[2017-09-14 06:21] LABS: BASOPHILS # (AUTO) 0.1 (0.0-0.1); BASOPHILS % 0.6 % (0.0-1.0); EOSINOPHILS # (AUTO) 1.6 (0.0-0.4); EOSINOPHILS % 11.8 % (0.0-6.0); HEMATOCRIT 29.2 % (34.2-44.1); LYMPHOCYTES % 14.6 % (18.0-39.1); MEAN CORPUSCULAR HGB CONC 30.8 g/dL (31-35); MEAN CORPUSCULAR VOLUME 84.4 fL (81-99); MONOCYTES # (AUTO) 1.1 (0.2-0.8); MONOCYTES % 8.2 % (4.4-11.3); NEUTROPHILS # (AUTO) 8.6 (2.1-6.9); NEUTROPHILS % 63.7 % (38.7-80.0); PLATELET COUNT 532 x10e3/uL (140-360); RED BLOOD COUNT 3.46 x10e6/uL (3.6-5.1); RED CELL DISTRIBUTION WIDTH 17.4 % (11.7-14.4)
[2017-09-14 06:45] LABS: ANION GAP 22.6 mmol/L (8-16); CALCIUM 10.2 mg/dL (8.4-10.2); CREATININE, SERUM 3.72 mg/dL (0.57-1.11); MAGNESIUM 2.7 MG/DL (1.3-2.1); PHOSPHORUS 3.1 MG/DL (2.3-4.7); POTASSIUM 4.6 mmol/L (3.5-5.1)
[2017-09-14 08:33] LABS: EOSINOPHILS % (MANUAL) 12 % (0-7); LYMPHOCYTES % (MANUAL) 15 % (19-48); MONOCYTES % (MANUAL) 7 % (3.4-9.0); MYELOCYTES % (MANUAL) 1 % (0-0); NEUTROPHILS % (MANUAL) 65 % (40-74)
[2017-09-14 08:34] LABS: ANISOCYTOSIS MODERATE; HYPOCHROMASIA SLIGHT; PLATELET ESTIMATE SLIGHTLY INCREASED; PLATELET MORPHOLOGY COMMENT NORMAL; POIKILOCYTOSIS SLIGHT; RBC MORPHOLOGY COMMENT NORMAL
[2017-09-14] MEDS: ASCORBIC ACID 500 MG TAB PEG SCH ×2 (08:38→18:07)
[2017-09-14] MEDS: FAMOTIDINE 20 MG TAB PEG SCH (08:38)
[2017-09-14] MEDS: LEVETIRACETAM ORAL SOLUTION 500 MG/5 ML SOLN PEG SCH ×2 (08:38→21:00)
[2017-09-14] MEDS: FERROUS SULFATE 325 MG TAB PEG SCH ×3 (08:38→21:00)
[2017-09-14] MEDS: PANTOPRAZOLE 40 MG 10ML VIAL IV SCH ×2 (08:38→21:00)
[2017-09-14] MEDS: ZINC SULFATE 220 MG CAP PEG SCH (08:39)
[2017-09-14] MEDS: FOLIC ACID/CYANOCOB/PYRIDOXINE TAB PO SCH (08:39)
[2017-09-14] MEDS: INSULIN DETEMIR 100 UNIT/ML PEN SQ SCH ×2 (08:55→21:30)
[2017-09-14] MEDS: DOXAZOSIN MESYLATE 2 MG TAB PEG SCH ×2 (09:00→21:00)
[2017-09-14] MEDS ORDERED: MEROPENEM 500MG 500 MG in SODIUM CHLORIDE 0.9% 50ML 50 ML IV SCH (09:00)
[2017-09-14] MEDS: EPOETIN ALFA 10000 UNIT/ML VIAL SC SCH (13:09)
[2017-09-14] MEDS ORDERED: ALTEPLASE RECOMBINANT 2 MG/2 ML VIAL ONE (14:09)
[2017-09-14] MEDS ORDERED: ALTEPLASE RECOMBINANT 2 MG/2 ML VIAL IV ONE (14:15)
[2017-09-14] MEDS ORDERED: HEPARIN SOD (PORCINE) 1000 UNIT/ML SDV ONE (16:56)
[2017-09-14] MEDS: COLLAGENASE OINTMENT 30 GM TUBE TP SCH (18:04)
[2017-09-14] MEDS: GENTAMICIN 60MG/NS 50ML 50 ML IV SCH (18:04)
[2017-09-14] MEDS: MEROPENEM 500 MG VIAL IV SCH (18:07)
[2017-09-14] MEDS: LABETALOL HCL 200 MG TAB PO SCH (18:46)
[2017-09-14] MEDS: ACETAMINOPHEN 325 MG/10 ML UDC PEG PRN (21:00)
[2017-09-15] VITALS (88 sets, daily range): BP systolic 92–146; BP diastolic 47–91
[2017-09-15] MEDS: INSULIN LISPRO 100 UNIT/1 ML 3ML VIAL SQ SCH ×8 (01:53→21:07)
[2017-09-15] MEDS: HYDRALAZINE HCL 25 MG TAB PO SCH ×3 (05:48→21:09)
[2017-09-15] MEDS: METOCLOPRAMIDE HCL 10MG/10ML UDC PEG SCH ×2 (05:48→14:22)
[2017-09-15] MEDS: CLONIDINE HCL 0.3 MG TAB PEG SCH ×3 (05:48→21:08)
[2017-09-15 06:09] LABS: BASOPHILS # (AUTO) 0.2 (0.0-0.1); EOSINOPHILS # (AUTO) 1.5 (0.0-0.4); EOSINOPHILS % 9.4 % (0.0-6.0); HEMATOCRIT 32.7 % (34.2-44.1); LYMPHOCYTES # (AUTO) 2.2 (1.0-3.2); LYMPHOCYTES % 13.7 % (18.0-39.1); MEAN CORPUSCULAR HEMOGLOBIN 26.5 pg (28-32); MEAN CORPUSCULAR HGB CONC 30.6 g/dL (31-35); MEAN CORPUSCULAR VOLUME 86.7 fL (81-99); MONOCYTES # (AUTO) 1.2 (0.2-0.8); MONOCYTES % 7.5 % (4.4-11.3); NEUTROPHILS # (AUTO) 10.7 (2.1-6.9); NEUTROPHILS % 67.7 % (38.7-80.0); PLATELET COUNT 559 x10e3/uL (140-360); RED BLOOD COUNT 3.77 x10e6/uL (3.6-5.1); RED CELL DISTRIBUTION WIDTH 17.5 % (11.7-14.4)
[2017-09-15 06:45] LABS: ANION GAP 20.7 mmol/L (8-16); CALCIUM 9.9 mg/dL (8.4-10.2); CREATININE, SERUM 2.27 mg/dL (0.57-1.11); POTASSIUM 3.7 mmol/L (3.5-5.1)
[2017-09-15] MEDS: MEROPENEM 500 MG VIAL IV SCH (08:46)
[2017-09-15] MEDS: PANTOPRAZOLE 40 MG 10ML VIAL IV SCH ×2 (08:46→20:54)
[2017-09-15] MEDS: FOLIC ACID/CYANOCOB/PYRIDOXINE TAB PO SCH (08:47)
[2017-09-15] MEDS: ASCORBIC ACID 500 MG TAB PEG SCH ×2 (08:47→15:41)
[2017-09-15] MEDS: LEVETIRACETAM ORAL SOLUTION 500 MG/5 ML SOLN PEG SCH ×2 (08:47→20:54)
[2017-09-15] MEDS: DOXAZOSIN MESYLATE 2 MG TAB PEG SCH ×2 (08:47→20:54)
[2017-09-15] MEDS: FAMOTIDINE 20 MG TAB PEG SCH (08:47)
[2017-09-15] MEDS: LABETALOL HCL 200 MG TAB PO SCH (08:47)
[2017-09-15] MEDS: ZINC SULFATE 220 MG CAP PEG SCH (08:47)
[2017-09-15] MEDS: FERROUS SULFATE 325 MG TAB PEG SCH ×2 (08:47→15:41)
[2017-09-15] MEDS: INSULIN DETEMIR 100 UNIT/ML PEN SQ SCH ×2 (09:22→20:55)
[2017-09-15] MEDS: COLLAGENASE OINTMENT 30 GM TUBE TP SCH (11:12)
[2017-09-16] VITALS (83 sets, daily range): BP systolic 78–142; BP diastolic 51–81
[2017-09-16] MEDS: INSULIN LISPRO 100 UNIT/1 ML 3ML VIAL SQ SCH ×8 (02:00→21:52)
[2017-09-16 05:44] LABS: BASOPHILS # (AUTO) 0.1 (0.0-0.1); BASOPHILS % 0.7 % (0.0-1.0); EOSINOPHILS # (AUTO) 1.7 (0.0-0.4); EOSINOPHILS % 10.6 % (0.0-6.0); HEMATOCRIT 31.4 % (34.2-44.1); HEMOGLOBIN 9.8 g/dL (12.0-16.0); LYMPHOCYTES # (AUTO) 2.3 (1.0-3.2); LYMPHOCYTES % 14.6 % (18.0-39.1); MEAN CORPUSCULAR HEMOGLOBIN 26.5 pg (28-32); MEAN CORPUSCULAR HGB CONC 31.2 g/dL (31-35); MEAN CORPUSCULAR VOLUME 84.9 fL (81-99); MONOCYTES # (AUTO) 1.3 (0.2-0.8); MONOCYTES % 8.4 % (4.4-11.3); NEUTROPHILS # (AUTO) 10.3 (2.1-6.9); NEUTROPHILS % 64.8 % (38.7-80.0); PLATELET COUNT 558 x10e3/uL (140-360); RED CELL DISTRIBUTION WIDTH 17.6 % (11.7-14.4)
[2017-09-16 06:07] LABS: ANION GAP 21.2 mmol/L (8-16); CALCIUM 10.7 mg/dL (8.4-10.2); CREATININE, SERUM 3.51 mg/dL (0.57-1.11); POTASSIUM 4.2 mmol/L (3.5-5.1)
[2017-09-16] MEDS: CLONIDINE HCL 0.3 MG TAB PEG SCH ×3 (06:09→21:46)
[2017-09-16] MEDS: HYDRALAZINE HCL 25 MG TAB PO SCH ×3 (06:09→21:46)
[2017-09-16 07:39] LABS: EOSINOPHILS % (MANUAL) 9 % (0-7); LYMPHOCYTES % (MANUAL) 14 % (19-48); MONOCYTES % (MANUAL) 2 % (3.4-9.0); NEUTROPHILS % (MANUAL) 75 % (40-74)
[2017-09-16 07:41] LABS: PLATELET ESTIMATE SLIGHTLY INCREASED; PLATELET MORPHOLOGY COMMENT NORMAL
[2017-09-16 07:42] LABS: ANISOCYTOSIS MODERATE; HYPOCHROMASIA MODERATE; POIKILOCYTOSIS SLIGHT; POLYCHROMASIA FEW; RBC MORPHOLOGY COMMENT ABNORMAL
[2017-09-16] MEDS ORDERED: HEPARIN SOD (PORCINE) 1000 UNIT/ML SDV ONE (08:12)
[2017-09-16] MEDS ORDERED: MANNITOL 25% 12.5GM/50ML 100 ML ONE (08:12)
[2017-09-16] MEDS ORDERED: ALBUMIN 25% 12.5GM 100 ML IV ONE (08:13)
[2017-09-16] MEDS: LABETALOL HCL 200 MG TAB PO SCH (09:00)
[2017-09-16] MEDS: DOXAZOSIN MESYLATE 2 MG TAB PEG SCH ×2 (09:00→21:46)
[2017-09-16] MEDS: PANTOPRAZOLE 40 MG 10ML VIAL IV SCH ×2 (10:10→21:45)
[2017-09-16] MEDS: ASCORBIC ACID 500 MG TAB PEG SCH ×2 (10:10→17:53)
[2017-09-16] MEDS: LEVETIRACETAM ORAL SOLUTION 500 MG/5 ML SOLN PEG SCH ×2 (10:10→21:45)
[2017-09-16] MEDS: INSULIN DETEMIR 100 UNIT/ML PEN SQ SCH ×2 (10:12→21:52)
[2017-09-16] MEDS: MEROPENEM 500 MG VIAL IV SCH (12:36)
[2017-09-16] MEDS: COLLAGENASE OINTMENT 30 GM TUBE TP SCH (16:27)
--- NOTE | 2017-09-16 18:26 | Consultation ---
DATE OF CONSULTATION: September 16, 2017 SURGICAL CONSULT REFERRING PHYSICIAN: Dr. Arguello. HISTORY OF PRESENT ILLNESS: Patient is a 37-year-old female who is in a chronic vegetative state. This is after a cardiac arrest and anoxic brain injury. She has ulcers on her sacrum and ischial areas with necrotic tissue. Request was made for debridement of these ulcers as well as creation of a colostomy for fecal diversion. PAST MEDICAL HISTORY: Significant for brain anoxic injury after cardiac arrest last year, end-stage renal disease, hypertension, type 1 diabetes. She has had previous tracheostomy, gastrostomy tube placement, tunneled hemodialysis catheter. MEDICATIONS: Listed in the chart. ALLERGIES: SHE HAS NO KNOWN ALLERGIES. FAMILY HISTORY: Significant for hypertension. SOCIAL HISTORY: The patient is a resident of a [facility]. REVIEW OF SYSTEMS: Cannot be obtained. PHYSICAL EXAMINATION: GENERAL: The patient is awake, does not answer questions. SIGNIFICANT FINDINGS: There is a gastrostomy tube in place. The abdomen is soft. In the sacral area, there is an ulcer with overlying necrotic tissue, likely stage 4. A second ulcer in the ischial area also with necrotic tissue. ASSESSMENT: This is a 37-year-old female with sacral and ischial ulcers. PLAN: Debridement of the ulcers to be done in the operating room and then laparoscopic colostomy for fecal diversion. We plan to schedule this for Tuesday. Thank you for asking me to see Ms. Mason. Job#: [id number] EV
[2017-09-17] VITALS (84 sets, daily range): BP systolic 86–144; BP diastolic 48–81
[2017-09-17] MEDS: INSULIN LISPRO 100 UNIT/1 ML 3ML VIAL SQ SCH ×8 (03:13→22:00)
[2017-09-17] MEDS: HYDRALAZINE HCL 25 MG TAB PO SCH ×3 (05:19→22:00)
[2017-09-17] MEDS: CLONIDINE HCL 0.3 MG TAB PEG SCH ×3 (05:19→22:00)
[2017-09-17 05:42] LABS: BASOPHILS # (AUTO) 0.1 (0.0-0.1); BASOPHILS % 0.6 % (0.0-1.0); EOSINOPHILS # (AUTO) 1.3 (0.0-0.4); EOSINOPHILS % 10.5 % (0.0-6.0); HEMATOCRIT 30.6 % (34.2-44.1); HEMOGLOBIN 9.6 g/dL (12.0-16.0); LYMPHOCYTES % 15.8 % (18.0-39.1); MEAN CORPUSCULAR HEMOGLOBIN 26.4 pg (28-32); MEAN CORPUSCULAR HGB CONC 31.4 g/dL (31-35); MEAN CORPUSCULAR VOLUME 84.1 fL (81-99); MONOCYTES # (AUTO) 1.4 (0.2-0.8); MONOCYTES % 11.5 % (4.4-11.3); NEUTROPHILS # (AUTO) 7.5 (2.1-6.9); NEUTROPHILS % 60.6 % (38.7-80.0); PLATELET COUNT 486 x10e3/uL (140-360); RED BLOOD COUNT 3.64 x10e6/uL (3.6-5.1); RED CELL DISTRIBUTION WIDTH 17.5 % (11.7-14.4)
[2017-09-17 05:58] LABS: ANION GAP 19.8 mmol/L (8-16); CALCIUM 10.3 mg/dL (8.4-10.2); CREATININE, SERUM 3.21 mg/dL (0.57-1.11); POTASSIUM 3.8 mmol/L (3.5-5.1)
[2017-09-17] MEDS: PANTOPRAZOLE 40 MG 10ML VIAL IV SCH ×2 (08:45→21:00)
[2017-09-17] MEDS: MEROPENEM 500 MG VIAL IV SCH (08:45)
[2017-09-17] MEDS: DOXAZOSIN MESYLATE 2 MG TAB PEG SCH ×2 (08:46→21:00)
[2017-09-17] MEDS: ASCORBIC ACID 500 MG TAB PEG SCH ×2 (08:46→17:08)
[2017-09-17] MEDS: LABETALOL HCL 200 MG TAB PO SCH (08:46)
[2017-09-17] MEDS: LEVETIRACETAM ORAL SOLUTION 500 MG/5 ML SOLN PEG SCH ×2 (08:46→21:00)
[2017-09-17] MEDS: COLLAGENASE OINTMENT 30 GM TUBE TP SCH (08:46)
[2017-09-17] MEDS: INSULIN DETEMIR 100 UNIT/ML PEN SQ SCH ×2 (09:30→21:00)
[2017-09-18] VITALS (92 sets, daily range): BP systolic 78–141; BP diastolic 44–113
[2017-09-18] MEDS: INSULIN LISPRO 100 UNIT/1 ML 3ML VIAL SQ SCH ×8 (02:00→22:00)
[2017-09-18 05:57] LABS: BASOPHILS # (AUTO) 0.1 (0.0-0.1); BASOPHILS % 0.4 % (0.0-1.0); EOSINOPHILS % 15.7 % (0.0-6.0); HEMATOCRIT 29.3 % (34.2-44.1); HEMOGLOBIN 9.2 g/dL (12.0-16.0); LYMPHOCYTES # (AUTO) 1.9 (1.0-3.2); LYMPHOCYTES % 15.2 % (18.0-39.1); MEAN CORPUSCULAR HEMOGLOBIN 26.2 pg (28-32); MEAN CORPUSCULAR HGB CONC 31.4 g/dL (31-35); MEAN CORPUSCULAR VOLUME 83.5 fL (81-99); MONOCYTES # (AUTO) 1.1 (0.2-0.8); NEUTROPHILS # (AUTO) 7.4 (2.1-6.9); PLATELET COUNT 498 x10e3/uL (140-360); RED BLOOD COUNT 3.51 x10e6/uL (3.6-5.1); RED CELL DISTRIBUTION WIDTH 17.5 % (11.7-14.4)
[2017-09-18] MEDS: HYDRALAZINE HCL 25 MG TAB PO SCH (06:09)
[2017-09-18] MEDS: CLONIDINE HCL 0.3 MG TAB PEG SCH ×3 (06:09→22:17)
[2017-09-18 06:16] LABS: ANION GAP 22.4 mmol/L (8-16); CALCIUM 10.6 mg/dL (8.4-10.2); CREATININE, SERUM 4.38 mg/dL (0.57-1.11); POTASSIUM 4.4 mmol/L (3.5-5.1)
[2017-09-18] MEDS: DOXAZOSIN MESYLATE 2 MG TAB PEG SCH ×2 (09:00→22:16)
[2017-09-18] MEDS: LABETALOL HCL 200 MG TAB PO SCH (09:00)
[2017-09-18] MEDS: PANTOPRAZOLE 40 MG 10ML VIAL IV SCH ×2 (09:00→22:15)
[2017-09-18] MEDS: ASCORBIC ACID 500 MG TAB PEG SCH ×2 (09:00→17:35)
[2017-09-18] MEDS: MEROPENEM 500 MG VIAL IV SCH (09:00)
[2017-09-18] MEDS: INSULIN DETEMIR 100 UNIT/ML PEN SQ SCH ×2 (09:00→20:43)
[2017-09-18] MEDS: LEVETIRACETAM ORAL SOLUTION 500 MG/5 ML SOLN PEG SCH ×2 (09:00→22:16)
[2017-09-18] MEDS ORDERED: CITRATE OF MAGNESIA 300ML BOTTLE GT ONE (14:00)
[2017-09-19] VITALS (76 sets, daily range): BP systolic 94–159; BP diastolic 53–91
[2017-09-19] MEDS: INSULIN LISPRO 100 UNIT/1 ML 3ML VIAL SQ SCH ×8 (02:00→21:37)
[2017-09-19] MEDS: CLONIDINE HCL 0.3 MG TAB PEG SCH ×3 (06:00→21:57)
[2017-09-19 06:11] LABS: BASOPHILS # (AUTO) 0.1 (0.0-0.1); BASOPHILS % 0.5 % (0.0-1.0); EOSINOPHILS # (AUTO) 2.1 (0.0-0.4); EOSINOPHILS % 16.9 % (0.0-6.0); HEMATOCRIT 27.4 % (34.2-44.1); HEMOGLOBIN 8.5 g/dL (12.0-16.0); LYMPHOCYTES # (AUTO) 2.8 (1.0-3.2); LYMPHOCYTES % 22.1 % (18.0-39.1); MEAN CORPUSCULAR HEMOGLOBIN 25.8 pg (28-32); MONOCYTES # (AUTO) 1.3 (0.2-0.8); MONOCYTES % 10.7 % (4.4-11.3); NEUTROPHILS # (AUTO) 6.2 (2.1-6.9); NEUTROPHILS % 49.2 % (38.7-80.0); PLATELET COUNT 477 x10e3/uL (140-360); RED CELL DISTRIBUTION WIDTH 17.2 % (11.7-14.4)
[2017-09-19 06:27] LABS: CALCIUM 9.7 mg/dL (8.4-10.2); CREATININE, SERUM 5.37 mg/dL (0.57-1.11)
[2017-09-19] MEDS ORDERED: HEPARIN SOD (PORCINE) 1000 UNIT/ML SDV ONE (06:34)
[2017-09-19] MEDS ORDERED: ALBUMIN 25% 12.5GM 100 ML IV ONE (06:35)
[2017-09-19 06:43] LABS: PHOSPHORUS 4.5 MG/DL (2.3-4.7)
[2017-09-19] MEDS: DEXTROSE 50% SYRINGE 50 ML IV PRN (07:32)
[2017-09-19] MEDS ORDERED: ALBUMIN 25% 12.5GM 0.25 GM/ML BTL IV PRN (09:00)
[2017-09-19] MEDS: ASCORBIC ACID 500 MG TAB PEG SCH ×2 (09:00→17:00)
[2017-09-19] MEDS ORDERED: HEPARIN SOD (PORCINE) 1000 UNIT/ML SDV IV PRN (09:00)
[2017-09-19] MEDS ORDERED: SODIUM CHLORIDE 0.9% 1000ML 2,000 ML IV PRN (09:00)
[2017-09-19] MEDS: LEVETIRACETAM ORAL SOLUTION 500 MG/5 ML SOLN PEG SCH ×2 (09:00→22:00)
[2017-09-19] MEDS: LABETALOL HCL 200 MG TAB PO SCH (09:00)
[2017-09-19] MEDS ORDERED: MANNITOL 25% 12.5GM/50 ML VIAL IV PRN (09:00)
[2017-09-19] MEDS ORDERED: SODIUM CHLORIDE 0.9% 250ML 500 ML IV PRN (09:00)
[2017-09-19] MEDS: INSULIN DETEMIR 100 UNIT/ML PEN SQ SCH ×2 (09:00→21:34)
[2017-09-19] MEDS: DOXAZOSIN MESYLATE 2 MG TAB PEG SCH ×2 (09:00→21:56)
[2017-09-19 09:43] LABS: RBC MORPHOLOGY COMMENT ABNORMAL
[2017-09-19 09:44] LABS: ANISOCYTOSIS SLIGHT; HYPOCHROMASIA SLIGHT; PLATELET ESTIMATE SLIGHTLY INCREASED; PLATELET MORPHOLOGY COMMENT NORMAL
[2017-09-19 09:45] LABS: EOSINOPHILS % (MANUAL) 13 % (0-7); LYMPHOCYTES % (MANUAL) 25 % (19-48); MONOCYTES % (MANUAL) 8 % (3.4-9.0); NEUTROPHILS % (MANUAL) 54 % (40-74)
[2017-09-19] MEDS: PANTOPRAZOLE 40 MG 10ML VIAL IV SCH ×2 (11:50→21:56)
[2017-09-19] MEDS: MEROPENEM 500 MG VIAL IV SCH (11:50)
[2017-09-19] MEDS ORDERED: BUPIVACAINE HCL 0.5% INJ 30 ML VIAL INJ ONE (13:32)
[2017-09-19] MEDS ORDERED: MORPHINE SULFATE 2 MG/ML SYR IV PRN (17:30)
[2017-09-19] MEDS ORDERED: FENTANYL CITRATE/PF 100MCG/2 ML INJ ONE (19:02)
[2017-09-19] MEDS ORDERED: SEVOFLURANE INHAL SOLN 250 ML PEN BTL ONE (19:02)
[2017-09-19] MEDS ORDERED: ROCURONIUM BROMIDE 10 MG/ML 5ML VIAL ONE (19:02)
[2017-09-19] MEDS ORDERED: CEFOXITIN SOD 1 GM VIAL ONE (19:02)
--- NOTE | 2017-09-19 20:15 | Operative Report ---
DATE OF PROCEDURE: September 19, 2017 PREOPERATIVE DIAGNOSIS: 1. Necrotic ulcers, bilateral ischial and left hip. 2. Chronic vegetative state. POSTOPERATIVE DIAGNOSIS: 1. Necrotic ulcers, bilateral ischial and left hip. 1. Chronic vegetative state. PROCEDURE: 1. Laparoscopic sigmoid end-colostomy. 2. Excisional debridement bilateral ischial and left hip ulcers. CHECK SERVICES CLERK: None. ANESTHESIA: General via tracheostomy. INDICATIONS AND FINDINGS: The patient is a 37-year-old female with chronic vegetative state, who has necrotic ulcers on bilateral ischial areas as well as the left hip, and request is made for diverting colostomy. At surgery there were some adhesions involving omentum. A colostomy was done in the proximal sigmoid colon. TECHNIQUE: After adequate general anesthesia via tracheostomy, the patient initially in the supine position, the abdomen was prepped and draped in sterile fashion with Betadine solution. Skin below the umbilicus was infiltrated with 1/2 percent Marcaine. Incision was made. The abdominal wall was elevated, and a Veress needle was introduced. Pneumoperitoneum was then created. A 5 mm trocar and cannula was then passed through this wound. The laparoscopic camera was introduced. Initial laparoscopy revealed some adhesions involving omentum. Colon appeared normal. A 5 mm trocar and cannula was placed suprapubically and a 5 mm trocar and cannula placed in the epigastrium. The sigmoid colon was mobilized by dividing the peritoneal attachments until the colon was free and easily reached the abdominal wall. A cher-ae heights of skin was then removed from the left lower abdomen and carried down through the subcutaneous tissue until the fascia was seen. The fascia was opened in cruciate fashion, muscle fibers split, and the posterior fascia opened to enter the peritoneal cavity. Sigmoid colon was delivered up into the wound. Distal colon was identified. An opening made in the mesentery and the distal colon stapled closed with a TL-60 stapler. Proximal to the staple line, the colon was opened to be matured as a colostomy. The colon was examined with the laparoscope from inside the abdomen to ensure that the staple line was in the distal portion of the colon. With the colon opened, the colostomy was matured, taking sutures from the skin to the full thickness of the colon with interrupted sutures of 3-0 Vicryl. Colostomy appliance was then applied. Pneumoperitoneum was evacuated, and the cannulas were removed. Trocar site wounds were closed with aaron. After this was completed, the patient was placed in the [id number] position. The necrotic ulcers were debrided using electrocautery. All the necrotic tissue was excised. The ulcers were bilateral ischial ulcers as well as the left hip area. Each area debrided was about 6 x 6 cm. So, it was 36 square centimeters for each ulcer. It was involving the skin and subcutaneous tissue. Debridement was carried down to healthy bleeding tissue. Hemostasis was achieved with electrocautery. Each ulcer was irrigated with saline and then dressed open with saline-moistened gauze and a sterile dressing applied. The patient tolerated the entire procedure well. Estimated blood loss for the entire procedure was 75 mL. There were no complications. All counts were correct, and the patient was taken to the recovery room in satisfactory condition. Job#: [id number] EV cc:ROMAN SHAHID MD
[2017-09-19] MEDS ORDERED: LEVETIRACETAM 500MG/5ML VIAL 500 MG in SODIUM CHLORIDE 0.9% 100 ML 100 ML IV SCH (22:00)
[2017-09-20] VITALS (47 sets, daily range): BP systolic 90–171; BP diastolic 52–98
[2017-09-20] MEDS: INSULIN LISPRO 100 UNIT/1 ML 3ML VIAL SQ SCH ×8 (02:06→22:00)
[2017-09-20] MEDS: CLONIDINE HCL 0.3 MG TAB PEG SCH ×3 (05:54→22:46)
[2017-09-20] MEDS: LABETALOL HCL 200 MG TAB PO SCH (08:05)
[2017-09-20] MEDS: DOXAZOSIN MESYLATE 2 MG TAB PEG SCH ×2 (08:38→21:00)
[2017-09-20] MEDS: MEROPENEM 500 MG VIAL IV SCH (10:05)
[2017-09-20] MEDS: PANTOPRAZOLE 40 MG 10ML VIAL IV SCH ×2 (10:07→21:00)
[2017-09-20] MEDS: INSULIN DETEMIR 100 UNIT/ML PEN SQ SCH ×2 (10:09→21:00)
[2017-09-20] MEDS: ASCORBIC ACID 500 MG TAB PEG SCH ×2 (10:09→18:20)
[2017-09-20] MEDS: LEVETIRACETAM ORAL SOLUTION 500 MG/5 ML SOLN PEG SCH ×2 (10:09→21:00)
[2017-09-20] MEDS ORDERED: METOPROLOL TARTRATE INJ 1 MG/ML VIAL ONE (18:08)
[2017-09-20] MEDS ORDERED: METOPROLOL TARTRATE INJ 1 MG/ML VIAL IV PRN (18:15)
[2017-09-21] VITALS (57 sets, daily range): BP systolic 77–146; BP diastolic 54–80
[2017-09-21] MEDS: INSULIN LISPRO 100 UNIT/1 ML 3ML VIAL SQ SCH ×7 (02:31→18:00)
[2017-09-21] MEDS: CLONIDINE HCL 0.3 MG TAB PEG SCH ×2 (06:18→14:00)
[2017-09-21 06:38] LABS: ANION GAP 22.1 mmol/L (8-16); CREATININE, SERUM 5.06 mg/dL (0.57-1.11); POTASSIUM 4.1 mmol/L (3.5-5.1)
[2017-09-21] MEDS: PANTOPRAZOLE 40 MG 10ML VIAL IV SCH (09:00)
[2017-09-21] MEDS: LABETALOL HCL 200 MG TAB PO SCH (09:00)
[2017-09-21] MEDS: INSULIN DETEMIR 100 UNIT/ML PEN SQ SCH (09:00)
[2017-09-21] MEDS: ASCORBIC ACID 500 MG TAB PEG SCH ×2 (09:00→17:00)
[2017-09-21] MEDS: LEVETIRACETAM ORAL SOLUTION 500 MG/5 ML SOLN PEG SCH (09:00)
[2017-09-21] MEDS: DOXAZOSIN MESYLATE 2 MG TAB PEG SCH (09:00)
[2017-09-21] MEDS ORDERED: SODIUM CHLORIDE 0.9% 1000ML 2,000 ML ONE (14:29)
[2017-09-21] MEDS ORDERED: KEPPRA100 MG/1 M PEG (17:40)
[2017-09-21] MEDS ORDERED: Morphine Sulfate 2MG/Ml IV (17:40)
[2017-09-21] MEDS ORDERED: CHOLESTYRAMINE L4 GM PO (17:40)
[2017-09-21] MEDS ORDERED: Insulin Detemir SQ (17:40)
[2017-09-21] MEDS ORDERED: CARDURA2 MG PEG (17:40)
[2017-09-21] MEDS ORDERED: Insulin Lispro SQ ×2 (17:40)
[2017-09-21] MEDS ORDERED: HEPARIN SO1000 UNIT1 IV (17:40)
[2017-09-21] MEDS ORDERED: DULCOLAX5 MG PO (17:40)
[2017-09-21] MEDS ORDERED: CATAPRES0.3 MG PEG (17:40)
[2017-09-21] MEDS ORDERED: [UNRECOGNIZED DRUG - OTHER] IV (17:40)
[2017-09-21] MEDS ORDERED: [UNRECOGNIZED DRUG - OTHER] IV (17:40)
[2017-09-21] MEDS ORDERED: LABETALOL HCL200 MG PO (17:40)
[2017-09-21] MEDS ORDERED: MANNITOL50 ML IV (17:40)
[2017-09-21] MEDS ORDERED: PROTONIX IV40 MG IV (17:40)
[2017-09-21] MEDS ORDERED: ASCORBIC ACID500 MG PEG (17:40)
--- NOTE | 2017-09-21 20:13 | Discharge Summary ---
PERTINENT HISTORY AND PHYSICAL FINDINGS: Mrs. 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 The patient was still on peritoneal dialysis and was having leg cramps. He massaged her legs. The patient had been coughing, and it is unsure if she had an TN or PE, but she had cardiac arrest with severe anoxic brain injury. She has a tracheostomy and PEG, and arrived from the [facility] rehab medicine. She had been on fluconazole and meropenem for several weeks for pneumonia prior to admission to [facility]. She had formally been admitted here from July 29, 2017, to August 04, 2017, and had received IV vancomycin and Fortaz initially for the pneumonia, which was switched to IV fluconazole and meropenem per the infectious disease specialist, Dr. Chambers. She was also receiving Zyvox for VRE urinary tract infection. 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 She had seizures that occurred after the cardiac arrest. The father had denied any history of seizures, C. difficile colitis. PAST SURGICAL HISTORY: Including tracheostomy and PEG tube placement, left tunneled hemodialysis catheter. Father denied any other history of surgeries. PAST FAMILY HISTORY: Includes hypertension in the father. Her mother . She had hypertension and breast cancer. ALLERGIES: NO KNOWN ALLERGIES. ADMITTING DIAGNOSES 1. Diabetic ketoacidosis. 2. Vancomycin-resistant enterococcus urinary tract infection. 3. 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 4. Recent Clostridium difficile colitis. 5. Chronic respiratory failure with tracheostomy. 6. Hypertension with end-stage renal disease. 7. Type 1 diabetes mellitus with end-stage renal disease. 8. End-stage renal disease. 9. Dysphagia with gastrostomy tube. 10. Microcytic anemia most likely due to end-stage renal disease. 11. Stage 3 sacral decubitus ulcer. DISCHARGE DIAGNOSES 1. Status post diabetic ketoacidosis. 2. Status post stage 3 sacral decubitus wound debridement and left diverting colostomy placement by Dr. Amado on Tuesday, September 19, 2017. 3. Status post vancomycin-resistant enterococcus urinary tract infection. 4. Persistent neurovegetative state with tracheostomy and gastrostomy tube status. 5. Recent Clostridium difficile colitis. 6. Chronic respiratory failure with tracheostomy. 7. Hypertension with end-stage renal disease. 8. Type 1 diabetes mellitus with end-stage renal disease. 9. End-stage renal disease. 10. Dysphagia with gastrostomy tube. 11. Microcytic anemia likely due to end-stage renal disease. 12. Stage 3 sacral decubitus ulcer and bilateral buttock decubitus ulcers. CONSULTING PHYSICIANS: Include Dr. Tonio Rod, nephrology, Dr. Bertrand Temple, endocrinology, Dr. Stone Martell with gastroenterology, Dr. Michoacano Amado with surgery, Dr. Doreen Persaud with pulmonology, Dr. Alberto Maloney with nephrology, Dr. Rosa Chambers with infectious disease, Dr. Bakari West with neurology. Dr. Amado had seen the patient on September 16, 2017, initially and had done laparoscopic sigmoid end colostomy and excisional debridement of bilateral ischial and left hip ulcers on September 19, 2017. Dr. West saw the patient on August 20, 2017, with diagnoses of vegetative state secondary to cardiac arrest, end-stage renal failure and hypertension. The patient had been taking Keppra 1000 mg b.i.d. apparently prophylactically for seizures. However, there was no evidence of seizures. Therefore, it was recommended to decrease the Keppra to 500 mg b.i.d. This is what the patient will be discharged on. Dr. Michoacano Dickinson with pulmonology saw the patient on August 24, 2017. The patient had required mechanical ventilation and had to be weaned off the ventilator. Dr. Rod initially saw the patient on August 17, 2017, with the diagnosis of hypertension, end-stage renal disease. The patient required hemodialysis throughout her stay here. The patient was last seen by Dr. Shahid on September 10, 2017. She had been septic. Pressors had been weaned off. IV gentamicin course had been given. The patient is no longer on antibiotics. She had Pseudomonas pneumonia. Had nebulized tobramycin and IV gentamicin. Tube feeding with Nepro 35 mL an hour was given for nutritional support. Levemir, Lispro and sliding scale insulin was given for her type 1 diabetes mellitus. She was given wound care and wound healing supplements for her sacral decubitus and bilateral buttock or ischial decubitus ulcers. Vasopressin had been weaned off. The family was approached about do not resuscitate status. However, the father did not want this. His wishes were honored. The patient will be going to at the [facility] facility. Nepro tube feedings to continue. Activity level as tolerated. However, the patient is noted to be nonverbal and in a persistent vegetative state. She is to follow up with Dr. Shahid and Dr. Diallo, nurse practitioner at the [facility]. Wet-to-dry dressings are to continue on the decubitus ulcers with normal saline. Dr. Paredes with wound care is to be consulted. The patient last had hemodialysis today in which 1 L was removed. On admission, WBC 9.55, hemoglobin 10, hematocrit 31.4, and platelets 376,000. Neutrophils 65.4. ABG showed a pH of 7.42, pCO2 31, pO2 164, HCO3 20, oxygen saturation 100%, base access -4. PT 13.9, INR 1.16 and PTT 33.3. Sodium 125, potassium 5.4, chloride 95, CO2 19, BUN 48, creatinine 3.9, GFR 16, glucose 794. Calcium 10.1. AST 66, ALT 48, alkaline phosphatase 209, total protein 5.6, albumin 2.6, globulin 3. B-type natriuretic peptide 495.8. Urine with 2+ protein, 2+ glucose, 2+ ketones, 1+ bilirubin, rare urine bacteremia, 2-5 hyaline casts, 1-5 fine granular casts. Fecal occult blood test positive on September 05, 2017. C. diff toxin negative on August 16, 2017, September 01, 2017, and September 05, 2017. Hepatitis B surface antigen negative. Hepatitis B surface antibody 9.4. Hepatitis B core total antibody negative. Wound culture showed gram-negative rods and enterococcus species on September 19, 2017. Blood positive for Klebsiella pneumoniae, ESBL and Pseudomonas aeruginosa on September 03, 2017. Sputum positive for Pseudomonas aeruginosa on August 31, 2017. Wound culture positive for Pseudomonas aeruginosa and Providencia stuartii on August 21, 2017. Chest x-ray on August 16, 2017, showed mild pulmonary vascular congestion. On September 10, 2017, chest x-ray was negative. On September 19, 2017, WBC is 12.52, hemoglobin 8.5, hematocrit 27.4, and platelets 477,000. Neutrophils 49.2. On September 21, 2017, sodium 140, potassium 4.1, chloride 95, CO2 27, BUN 98, creatinine 5.06, GFR 12, glucose 269. Calcium 10. DICTATED BY MADONNA PARKER, COMMUNICATION EQUIPMENT MECHANIC ROMAN SHAHID MD Job#: [id number] RI
== END 2017-09-21 20:15 | DRG 853 ==
LOC: ER 10:58 → ERHOLD 15:40 → ICU 21:43 → IMCU 08-23 00:19 → ICU 08-26 18:04 → MED/SURG2 08-28 18:43 → IMCU 09-07 13:57 → ICU 09-08 17:54
PROVIDERS: ADMIT Internal Medicine; ATTEND Internal Medicine
PROC: 5A1D70Z Performance of Urinary Filtration, Intermittent, Less than 6 Hours Per Day (ICD-10-PCS; 2017-08-17)
PROC: 5A1955Z Respiratory Ventilation, Greater than 96 Consecutive Hours (ICD-10-PCS; principal; 2017-08-24)
PROC: 3E043XZ Introduction of Vasopressor into Central Vein, Percutaneous Approach (ICD-10-PCS; 2017-09-07)
PROC: 5A1955Z Respiratory Ventilation, Greater than 96 Consecutive Hours (ICD-10-PCS; 2017-09-08)
PROC: 0D1N4Z4 Bypass Sigmoid Colon to Cutaneous, Percutaneous Endoscopic Approach (ICD-10-PCS; 2017-09-19)
PROC: 0JB90ZZ Excision of Buttock Subcutaneous Tissue and Fascia, Open Approach (ICD-10-PCS; 2017-09-19)
PROC: 0JBM0ZZ Excision of Left Upper Leg Subcutaneous Tissue and Fascia, Open Approach (ICD-10-PCS; 2017-09-19)
DX: A41.9 Sepsis, unspecified organism (principal); E10.10 Type 1 diabetes mellitus with ketoacidosis without coma; L89.154 Pressure ulcer of sacral region, stage 4; N18.6 End stage renal disease; J69.0 Pneumonitis due to inhalation of food and vomit; J15.1 Pneumonia due to Pseudomonas; I12.0 Hypertensive chronic kidney disease with stage 5 chronic kidney disease or end stage renal disease; N39.0 Urinary tract infection, site not specified; J96.10 Chronic respiratory failure, unspecified whether with hypoxia or hypercapnia; G93.1 Anoxic brain damage, not elsewhere classified; E87.1 Hypo-osmolality and hyponatremia; K92.1 Melena; R40.3 Persistent vegetative state; A41.52 Sepsis due to Pseudomonas; A41.59 Other Gram-negative sepsis; B96.20 Unspecified Escherichia coli [E. coli] as the cause of diseases classified elsewhere; E10.22 Type 1 diabetes mellitus with diabetic chronic kidney disease; Z99.2 Dependence on renal dialysis; Z16.21 Resistance to vancomycin; Z93.0 Tracheostomy status; Z93.1 Gastrostomy status; Z86.74 Personal history of sudden cardiac arrest; R13.10 Dysphagia, unspecified; D63.1 Anemia in chronic kidney disease; Z74.01 Bed confinement status; E87.5 Hyperkalemia; Z86.711 Personal history of pulmonary embolism; Z16.24 Resistance to multiple antibiotics; Z16.12 Extended spectrum beta lactamase (ESBL) resistance; R19.7 Diarrhea, unspecified; Z79.891 Long term (current) use of opiate analgesic; E83.39 Other disorders of phosphorus metabolism; E83.42 Hypomagnesemia; E83.52 Hypercalcemia; Z22.39 Carrier of other specified bacterial diseases; R50.2 Drug induced fever; T42.6X5A Adverse effect of other antiepileptic and sedative-hypnotic drugs, initial encounter; Y92.230 Patient room in hospital as the place of occurrence of the external cause
CPT/HCPCS: 31720; 36000; 36415; 36569; 36600; 71045; 76604; 80048; 80053; 81001; 82140; 82270; 82306; 82607; 82728; 82746; 82805; 82947; 82948; 83036; 83540; 83605; 83735; 83880; 83970; 84100; 84132; 84439; 84443; 84466; 85025; 85045; 85379; 85610; 85730; 86704; 86706; 86850; 86900; 86920; 87040; 87070; 87071; 87075; 87186; 87205; 87340; 87493; 88302; 90962; 94002; 94003; 94640; 96360; 96361; 96365; 96366; 96372; 96375; 96376; 99285; J0692; J0694; J1580; J1644; J2150; J2185; J2430; J2997; J3260; J3370; J3480; J7030; J7050; J7799; P9016; Q4081

== ENCOUNTER 2017-10-03 18:24 | Observation (INO) | payer MEDICARE, OTHER ==
[~2017-10-03] VITALS: Ht 157.5 cm; Wt 48.5 kg
[~2017-10-03 18:24] MED LIST changes: +CARDURA2 MG PEG; +CATAPRES0.3 MG PEG; +CHOLESTYRAMINE L4 GM PO; +DULCOLAX5 MG PO; +HEPARIN SO1000 UNIT1 IV; +Insulin Detemir SQ; +Insulin Lispro SQ; +KEPPRA100 MG/1 M PEG; +LABETALOL HCL200 MG PO; +MANNITOL50 ML IV; +Morphine Sulfate 2MG/Ml IV; +PROTONIX IV40 MG IV; +[UNRECOGNIZED DRUG - OTHER] IV; +[UNRECOGNIZED DRUG - OTHER] IV
--- OUTSIDE RECORDS SUMMARY | 2017-10-03 18:26 | XMS REPORT | Continuity of Care Document ---
Author Author [facility] Organization [facility] Address [address] [place] [address] Phone Unavailable Care Team Providers Care Correctional Therapy Teacher Name Role Phone ROMAN ARGUELLO MD PCP Insurance Providers Guarantor Maximilian Delgado Address [address] [place] [address] Email NONE [facility] Policy Number [id number] Subscriber's Name Maximilian Delgado Relationship 18 Self / Same As Patient Effective Date 17 [facility] Policy Number [id number] Subscriber's Name Maximilian Delgado Relationship 18 Self / Same As Patient Group Number [id number] Effective Date 17 Advance Directives Directive Response Recorded Date/Time Does the patient have an advance directive? No 08/16/17 11:00pm If yes, is advance directive [facility]? No 08/16/17 11:00pm If not on file with [facility] will patient provide a copy? Yes 08/16/17 11:00pm Do you have a Directive to Physician? No 08/16/17 12:51pm Do you have a Medical Power of Admissions Assistant? No 08/16/17 12:51pm Do you have an out of hospital Do Not Resuscitate Order? No 08/16/17 12:51pm Do you have any special needs we should be aware of? No 08/16/17 12:51pm Do you have a support person here with you today? No 08/16/17 12:51pm Did patient receive Notice of Privacy Practices? No 08/16/17 12:51pm Did patient receive patient rights and responsibilities? No 08/16/17 12:51pm Problems Medical Problem Onset Date Status DKA, type 2 Unknown Hospital-acquired pneumonia Unknown Hyperkalemia Unknown Hyponatremia Unknown Medications Current Home Medications Medication Dose Units Route Directions Days Qty Instructions Start Date Acetaminophen 650 Mg Tablet 650 Mg Peg Tube Every 4 Hours as needed for Elevated Temperature Albumin Human (Albuminar-25) 50 Ml Vial 25 Gm Intraven As Needed as needed for Bp Support During Dialysis 30 Days 09/21/17 Amlodipine Besylate 10 Mg Tablet 10 Mg Peg Tube Daily 30 Tab Ascorbic Acid 500 Mg Tablet 500 Mg Peg Tube Daily 30 Tab Ascorbic Acid 500 Mg Tablet 500 Mg Peg Tube Twice A Day 30 Days 01/31 Bisacodyl (Dulcolax) 5 Mg Tablet. 10 Mg Peg Tube Yanique as needed for Constipation Bisacodyl (Dulcolax) 5 Mg Tablet. 5 Mg Oral Daily as needed for Constipation 30 Days 09/21/17 Ceftazidime Pentahydrate/D5w (Ceftazidime 1 Gm Piggyback) 1 Gm/50 Ml Piggyback 2 Gm Intraven ,, Cholestyramine (Cholestyramine Light Packet) 4 Gm Pack 4 Gm Oral Twice A Day as needed for Diarrhea 30 Days 09/21/17 Clonidine Hcl 0.2 Mg Tablet 0.2 Mg Peg Tube Sun,Mon,Wed,Fri Clonidine Hcl (Catapres) 0.3 Mg Tablet 0.3 Mg Peg Tube Every 8 Hours 30 Days 09/21/17 Doxazosin Mesylate (Cardura) 2 Mg Tablet 4 Mg Peg Tube Every 12 Hours 30 Days 09/21/17 Famotidine 20 Mg Tab 20 Mg Oral Daily 30 Tab Ferrous Sulfate 325 Mg Tablet 325 Mg Peg Tube Three Times A Day Fluconazole (Diflucan) 150 Mg Tablet 150 Mg Peg Tube ,Sat Folic Acid/Cyanocob/Pyridoxine (Nephro-Be Tablet) 1 Ea Tab 1 Each Peg Tube Daily 30 Tab Heparin Sodium,Porcine/Pf (Heparin Sod 1,000 Unit/Ml Vial) 1,000 Unit/1 Ml Vial 4,000 Unit Intraven As Needed as needed for For Catheter Pack 30 09/21/17 Hydralazine Hcl 25 Mg Tab 50 Mg Oral Every 6 Hours Insulin Detemir 100 Unit/Ml Pen 8 Unit Sub-Q Every 12 Hours 30 09/21/17 Insulin Lispro 100 Unit/1 Ml Vial 0 Unit Sub-Q Every 4 Hours 30 Days 09/21/17 Insulin Lispro 100 Unit/1 Ml Vial 5 Unit Sub-Q Every 12 Hours 30 09/21/17 Labetalol Hcl 200 Mg Tablet 600 Mg Peg Tube Morrison,Mon,Wed,Fri 60 Tab Labetalol Hcl 200 Mg Tablet 600 Mg Oral Daily 30 Days 09/21/17 Lactulose 20 Gm/30 Ml Solution 30 Ml Peg Tube Twice A Day as needed for Constipation Levetiracetam (Keppra) 100 Mg/1 Ml Soln 500 Mg Peg Tube Every 12 Hours 30 09/21/17 Levetiracetam 500 Mg Tablet 100 Mg Peg Tube Every 12 Hours Mannitol 50 Ml Soln 100 Ml Intraven As Needed as needed for Bp Support During Dialysis 09/21/17 Metoclopramide Hcl 10 Mg Tablet 5 Mg Peg Tube Every 6 Hours Metoprolol Tartrate 1 Mg/Ml Soln 2.5 Mg Intraven Every 6 Hours as needed for High Blood Pressure 09/21/17 Metronidazole 500 Mg Tablet 500 Mg Peg Tube Every 8 Hours Morphine Sulfate 2MG/Ml 2 Mg/Ml Inj 2 Mg Intraven Every 4 Hours as needed for Pain 09/21/17 Pantoprazole Sodium (Protonix Iv) 40 Mg Vial 40 Mg Intraven Every 12 Hours 30 09/21/17 Phoslo 667 Mg Peg Tube Three Times A Day Zinc Sulfate 220 Mg Tablet 220 Mg Peg Tube Daily 30 Cap Past Home Medications Medication Directions Ordered Status Insulin Glargine (Lantus 3ML Pen) 100 Units/1 Ml Inj, 35 Units Subcutaneously Bedtime Discontinued Social History Social History Problem Response Recorded Date/Time Onset Date Status Hx Psychiatric Problems No 08/16/2017 11:00pm Not Applicable Not Applicable Smoking Status Start Date Stop Date Unknown if ever smoked Hospital Discharge Instructions No hospital discharge instruction information available. Plan of Care Discharge Date 09/21/17 8:15pm Disposition DIS TO [facility] BED Prescriptions See Medication Section Additional Instructions/Education DC Gentamycin. Nepro 35cc/hr via PEG. AAT; nonverbal, persistent vegetative state. F/U with Dr. Arguello & Imani, HOTEL RESERVATION AGENT at [facility]. Wet to dry dressing changes with NS to bilateral buttock wounds & sacral wound. Consult Dr. Paredes, wound care MD. Functional Status Query Response Date Recorded FUNCTIONAL STATUS . August 18, 2017 11:38am Toileting Ability Total Assistance September 19, 2017 7:58am Allergies, Adverse Reactions, Alerts No known allergies. Immunizations No immunization information available. Vital Signs Acute Vital Signs Vital Response Date/Time Temperature (Fahrenheit) 98.3 degrees F (97.6 - 99.5) 09/21/2017 4:00pm Pulse Pulse Rate (adult) 112 bpm (60 - 90) 09/21/2017 7:15pm Respiratory Rate 18 bpm (12 - 24) 09/21/2017 7:15pm Blood Pressure 108/63 mm Hg 09/21/2017 5:14pm Height 5 ft 2 in 08/16/2017 11:00am Weight 107 lb 09/21/2017 8:50am Body Mass Index 19.6 kg/m^2 09/21/2017 8:50am Results Laboratory Results Test Name Result Units Flags Reference Collection Date/Time Result Date/ Time Comments Urine Amorphous Sediment FEW FEW 07/31/2017 9:55am 07/31/2017 11: 41am Urine Mucus MODERATE H RARE 07/31/2017 9:55am 07/31/2017 11:41am Triglycerides Level 63 MG/DL 0-149 08/04/2017 8:10am [...] L 3.0-3.6 08/04/2017 8:10am 08/04/2017 8: 46am Creatine Kinase 37 IU/L 29-168 07/30/2017 10:20pm 07/30/2017 10:51pm Creatine Kinase MB 2.40 ng/mL 0-5.0 07/30/2017 10:20pm 07/30/2017 10: 51pm Troponin I 0.025 ng/mL 0-0.300 07/30/2017 10:20pm 07/30/2017 10:51pm Human Chorionic Gonadotropin, Qual NEGATIVE NEGATIVE 07/31/2017 4: 20pm 07/31/2017 5:39pm Hepatitis Be Antibody Negative Negative 07/30/2017 9:34am 08/01/2017 11:46pm Performed at: - [facility] [id number] Perl Programmer: Sandip Hair MD, Phone: [phone] Hepatitis C Antibody <0.1 07/30/2017 9:34am 08/02/2017 9:31am Reference Range: 0.0 - 0.9 s/co ratio Negative: < 0.8 Indeterminate: 0.8 - 0.9 Positive: > 0.9 The CDC recommends that a positive HCV antibody result be followed up with a HCV Nucleic Acid Amplification test ([id number]). [facility] [address] [id number] Dir: Ric Cook MD For inquiries, the physician may contact Branch: [phone] Lab: [phone] White Blood Count 12.52 x10e3/uL H 4.8-10.8 09/19/2017 5:35am 2017 6:32am Red Blood Count 3.30 x10e6/uL L 3.6-5.1 09/19/2017 5:35am 09/19/2017 6: 32am Hemoglobin 8.5 g/dL L 12.0-16.0 09/19/2017 5:35am 09/19/2017 6:32am Hematocrit 27.4 % L 34.2-44.1 09/19/2017 5:35am 09/19/2017 6:32am Mean Corpuscular Volume 83.0 fL 81-99 09/19/2017 5:3509/19/2017 6: 32am Mean Corpuscular Hemoglobin 25.8 pg L 28-09/19/2017 5:35am 2017 6:32am Mean Corpuscular Hemoglobin Concent 31.0 g/dL -35 09/19/2017 5:35am 09/19/2017 6:32am Red Cell Distribution Width 17.2 % H 11.7-14.4 09/19/2017 5:352017 6:32am Platelet Count 477 x10e3/uL H 140-360 09/19/2017 5:3509/19/2017 6: 32am Neutrophils (%) (Auto) 49.2 % 38.7-80.0 09/19/2017 5:3509/19/2017 6: 32am Lymphocytes (%) (Auto) 22.1 % 18.0-39.1 09/19/2017 5:3509/19/2017 6: 32am Monocytes (%) (Auto) 10.7 % 4.4-11.3 09/19/2017 5:3509/19/2017 6: 32am Eosinophils (%) (Auto) 16.9 % H 0.0-6.0 09/19/2017 5:3509/19/2017 6: 32am Basophils (%) (Auto) 0.5 % 0.0-1.0 09/19/2017 5:3509/19/2017 6:32am IM GRANULOCYTES % 0.6 % 0.0-1.0 09/19/2017 5:3509/19/2017 6:32am Neutrophils # (Auto) 6.2 2.1-6.9 09/19/2017 5:3509/19/2017 6:32am Lymphocytes # (Auto) 2.8 1.0-3.2 09/19/2017 5:3509/19/2017 6:32am Monocytes # (Auto) 1.3 H 0.2-0.8 09/19/2017 5:3509/19/2017 6:32am Eosinophils # (Auto) 2.1 H 0.0-0.4 09/19/2017 5:3509/19/2017 6: 32am Basophils # (Auto) 0.1 0.0-0.1 09/19/2017 5:35am 09/19/2017 6:32am Absolute Immature Granulocyte (auto 0.08 x10e3/uL 0-0.1 09/19/2017 5: 35am 09/19/2017 6:32am Differential Total Cells Counted 100 09/19/2017 5:35am 09/19/2017 9 :45am Neutrophils % (Manual) 54 % 40-74 09/19/2017 5:35am 09/19/2017 9:45am Band Neutrophils % 1 % 09/04/2017 6:30am 09/04/2017 12:42pm Lymphocytes % (Manual) 25 % 19-48 09/19/2017 5:35am 09/19/2017 9:45am Monocytes % (Manual) 8 % 3.4-9.0 09/19/2017 5:35am 09/19/2017 9:45am Eosinophils % (Manual) 13 % H 0-7 09/19/2017 5:35am 09/19/2017 9:45am Basophils % (Manual) 3 % H 0-1.5 09/05/2017 6:19am 09/05/2017 7:45am Metamyelocytes % 1 % H 0-0 08/31/2017 6:20am 08/31/2017 8:01am Myelocytes % 1 % H 0-0 09/14/2017 5:50am 09/14/2017 8:34am Reactive Lymphocytes 1 09/02/2017 6:20am 09/02/2017 9:12am Smudge Cells FEW 09/12/2017 5:45am 09/12/2017 9:12am Platelet Estimate SLIGHTLY INCREASED 09/19/2017 5:35am 09/19/2017 9 :44am Platelet Morphology Comment NORMAL 09/19/2017 5:35am 09/19/2017 9: 44am Polychromasia FEW 09/16/2017 5:30am 09/16/2017 7:42am Hypochromasia SLIGHT 09/19/2017 5:35am 09/19/2017 9:44am Poikilocytosis SLIGHT 09/16/2017 5:30am 09/16/2017 7:42am Anisocytosis SLIGHT 09/19/2017 5:35am 09/19/2017 9:44am Microcytosis SLIGHT 08/19/2017 5:30am 08/19/2017 8:21am Target Cells FEW 08/19/2017 5:30am 08/19/2017 8:21am Red Cell Morphology Comment ABNORMAL 09/19/2017 5:35am 09/19/2017 9 :44am Percent Reticulocyte Count 0.5 % L 0.8-2.2 09/08/2017 5:50am 09/08/2017 6:55am Prothrombin Time 14.0 seconds 11.9-14.5 09/08/2017 4:30pm 09/08/2017 4: 59pm Prothromb Time International Ratio 1.17 09/08/2017 4:30pm 2017 4:59pm Oral Anticoagulant Therapy INR Values: 1. Low Intensity Therapy 1.5 - 2.0 2. Moderate Intensity Therapy 2.0 - 3.0 3. High Intensity Therapy(1) 2.5 - 3.5 4. High Intensity Therapy(2) 3.0 - 4.0 5. Panic Value INR > 5.0 Activated Partial Thromboplast Time 31.5 seconds 23.8-35.5 09/08/2017 4: 30pm 09/08/2017 4:59pm D-Dimer Quantitative (PE/DVT) 2.39 ug/mLFEU H 0.00-0.45 09/08/2017 4: 30pm 09/08/2017 5:01pm As with all in vitro diagnostic tests, the test results should be interpreted by the physician in conjunction with clinical findings and other test results. Test results are reported in NEW D-dimer units(ug/mLFEU). Urine Color YELLOW YELLOW 08/16/2017 11:50am 08/16/2017 12:50pm Urine Clarity SL CLOUDY CLEAR 08/16/2017 11:50am 08/16/2017 12:50pm Urine Specific Zoar 1.005 L 1.010-1.025 08/16/2017 11:50am 2017 12:50pm Urine pH 8 H 5 - 7 08/16/2017 11:50am 08/16/2017 12:50pm Urine Leukocyte Esterase NEGATIVE NEGATIVE 08/16/2017 11:50am 2017 12:50pm Urine Nitrite NEGATIVE NEGATIVE 08/16/2017 11:50am 08/16/2017 12: 50pm Urine Protein 2+ H NEGATIVE 08/16/2017 11:50am 08/16/2017 12:50pm Urine Glucose (UA) 2+ H NEGATIVE 08/16/2017 11:50am 08/16/2017 12: 50pm Urine Ketones 2+ H NEGATIVE 08/16/2017 11:50am 08/16/2017 12:50pm Urine Urobilinogen 0.2 mg/dL 0.2 - 1 08/16/2017 11:50am 08/16/2017 12: 50pm Urine Bilirubin 1+ H NEGATIVE 08/16/2017 11:50am 08/16/2017 12:50pm Urine Blood NEGATIVE NEGATIVE 08/16/2017 11:50am 08/16/2017 12:50pm Urine WBC NONE /HPF 0-5 08/16/2017 11:50am 08/16/2017 1:21pm Urine RBC NONE /HPF 0-5 08/16/2017 11:50am 08/16/2017 1:21pm Urine Bacteria RARE /HPF NONE 08/16/2017 11:50am 08/16/2017 1:21pm Urine Epithelial Cells FEW /LPF NONE 08/16/2017 11:50am 08/16/2017 1: 21pm Urine Transitional Epithelial Cells RARE H NONE 08/16/2017 11:50am 07/2017 1:21pm Urine Renal Epithelial Cells RARE H NONE 08/16/2017 11:50am 2017 1:21pm Urine Hyaline Casts 2-5 H 0-1 08/16/2017 11:50am 08/16/2017 1:21pm Urine Fine Granular Casts 1-5 H 0 08/16/2017 11:50am 08/16/2017 1: 21pm Sodium Level 140 mmol/L 136-145 09/21/2017 5:40am 09/21/2017 6:41am Potassium Level 4.1 mmol/L 3.5-5.1 09/21/2017 5:40am 09/21/2017 6:41am Chloride Level 95 mmol/L L 98-107 09/21/2017 5:40am 09/21/2017 6:41am Carbon Dioxide Level 27 mmol/L 22-29 09/21/2017 5:40am 09/21/2017 6: 41am Anion Gap 22.1 mmol/L H 8-16 09/21/2017 5:40am 09/21/2017 6:41am Blood Urea Nitrogen 98 mg/dL H 7-26 09/21/2017 5:40am 09/21/2017 6:41am Creatinine 5.06 mg/dL H 0.57-1.11 09/21/2017 5:40am 09/21/2017 6:41am BUN/Creatinine Ratio 19 6-25 09/21/2017 5:40am 09/21/2017 6:41am Estimat Glomerular Filtration Rate 12 ML/MIN L 60- 09/21/2017 5:40am 01/2018 6:41am Ranges were taken from the National Kidney Disease Education Program and the National Kidney Foundation literature. Reference ranges: 60 or greater: Normal 16-59 (for 3 consecutive months): Chronic kidney disease 15 or less: Kidney failure Glucose Level 269 mg/dL H 74-118 09/21/2017 5:40am 09/21/2017 6:41am Calcium Level 10.0 mg/dL 8.4-10.2 09/21/2017 5:40am 09/21/2017 6:41am Bedside Glucose 328 mg/dL H 70-120 09/21/2017 6:04pm 09/21/2017 6:12pm Meter ID: [id number] Hemoglobin A1c Percent 5.7 % 4.0-7.0 08/17/2017 5:50am 08/17/2017 2: 41pm Lactic Acid Level 19.2 MG/DL 4.5-19.8 09/08/2017 4:30pm 09/08/2017 5: 01pm Phosphorus Level 4.5 MG/DL 2.3-4.7 09/19/2017 5:35am 09/19/2017 6:56am Magnesium Level 3.0 MG/DL H 1.3-2.1 09/19/2017 5:35am 09/19/2017 6:56am Iron Level 21 ug/dL L 50-170 08/25/2017 5:30am 08/25/2017 12:31pm Total Iron Binding Capacity 112 ug/dL L 261-478 08/25/2017 5:30am 2017 12:31pm Percent Iron Saturation 19 % 15-50 08/25/2017 5:30am 08/25/2017 12: 31pm Transferrin 80 mg/dL L 180-382 08/25/2017 5:30am 08/25/2017 12:31pm Ferritin 935.88 ng/mL H 4.63-204.00 08/25/2017 5:3008/25/2017 12: 50pm Total Bilirubin 0.3 mg/dL 0.2-1.2 09/05/2017 6:09/05/2017 7:22am Aspartate Amino Transf (AST/SGOT) 60 IU/L H 5-34 09/05/2017 6:09/05 7:22am Alanine Aminotransferase (ALT/SGPT) 42 IU/L 0-55 09/05/2017 6: 7:22am Ammonia 30 UG/DL L 31-123 08/16/2017 4:45pm 08/16/2017 5:08pm Total Protein 6.9 g/dL 6.5-8.1 09/05/2017 6:09/05/2017 7:22am Albumin 2.4 g/dL L 3.5-5.0 09/05/2017 6:09/05/2017 7:22am Globulin 4.5 g/dL H 2.3-3.5 09/05/2017 6:09/05/2017 7:22am Albumin/Globulin Ratio 0.5 L 0.8-2.0 09/05/2017 6:09/05/2017 7: 22am Alkaline Phosphatase 292 IU/L H 40-150 09/05/2017 6:09/05/2017 7: 22am B-Type Natriuretic Peptide 562.5 pg/mL H 0-100 08/24/2017 7:59am 2017 8:42am Vitamin B12 Level 1066 pg/mL H 213-816 09/08/2017 5:50am 09/08/2017 7: 35am Folate 37.7 ng/mL H 7.0-15.4 09/08/2017 5:50am 09/08/2017 10:08am --- 09/08/17 1007 --- FOLATE previously reported as: > 20.0 H ng/mL Free Thyroxine 1.03 ng/dL 0.9-1.8 08/17/2017 5:50am 08/17/2017 3:01pm Thyroid Stimulating Hormone (TSH) 2.591 uIU/mL 0.350-4.940 08/17/2017 5: 50am 08/17/2017 3:01pm Arterial Blood pH 7.51 H 7.31-7.41 09/08/2017 5:25pm 09/08/2017 5: 39pm Arterial Blood Partial Pressure CO2 42 mmHg 41-51 09/08/2017 5:25pm 5:39pm Arterial Blood Partial Pressure O2 298 mmHg H 80-105 09/08/2017 5:25pm 09/08/2017 5:39pm Arterial Blood HCO3 33 mmol/L H 23-28 09/08/2017 5:25pm 09/08/2017 5: 39pm Arterial Blood Base Excess 10.0 mmol/L H -2 - 3 09/08/2017 5:25pm 2017 5:39pm Arterial Blood Oxygen Saturation 100.0 % H 95-98 09/08/2017 5:pm 09/08 5:39pm FiO2 60 % 09/08/2017 5:25pm 09/08/2017 5:39pm PRVC 12 450 60% +5 RIGHT RADIAL Hepatitis B Surface Antibody, Quant 6.2 mIU/mL L Immunity>9.9 09/12/2017 12:45pm 09/13/2017 7:51am Status of Immunity Anti-HBs Level Inconsistent with Immunity 0.0 - 9.9 Consistent with Immunity >9.9 Hepatitis B Core Total Antibody Negative Negative 09/12/2017 12:45pm 09/13/2017 7:51am Performed at: - [facility] [id number] Perl Programmer: Ric Cook MD, Phone: [phone] Hepatitis B Surface Antigen Negative Negative 09/12/2017 12:45pm 05/2017 7:51am 25-Hydroxy Vitamin D Total 20 ng/mL L . 08/29/2017 11:15am 09/03/2017 8: 04am Reference Range: All Ages: Target levels 30 - 100 25-Hydroxy Vitamin D3 17 ng/mL . 08/29/2017 11:15am 09/03/2017 8:04am Performed at: [facility] [address] [place] [id number] Perl Programmer: Francisco Felix MD, Phone: [phone] 25-Hydroxy Vitamin D2 2.7 ng/mL . 08/29/2017 11:15am 09/03/2017 8:04am Parathyroid Hormone 11 pg/mL L 15-65 08/29/2017 11:15am 08/30/2017 6: 12am Calcium (Send out) 10.5 mg/dL H 8.7-10.2 08/29/2017 11:15am 08/30/2017 6 :12am Parathyroid Hormone Interpretation Comment . 08/29/2017 11:15am 08/30 6:12am Interpretation Intact PTH Calcium (pg/mL) (mg/dL) Normal 15 - 65 8.6 - 10.2 Primary Hyperparathyroidism >65 >10.2 Secondary Hyperparathyroidism >65 <10.2 Non-Parathyroid Hypercalcemia <65 >10.2 Hypoparathyroidism <15 < 8.6 Non-Parathyroid Hypocalcemia 15 - 65 < 8.6 Performed at: - [facility] [id number] Perl Programmer: Ric Cook MD, Phone: [phone] Performed at: [facility] [id number] Perl Programmer: Sandip Hair MD, Phone: [phone] Stool Occult Blood POSITIVE H NEGATIVE 09/05/2017 11:45am 09/05/2017 1 :21pm --- 09/05/17 1318 --- OCCULT BLOOD ST previously reported as: NEGATIVE Clostridium Difficile Toxin A & B NEGATIVE NEGATIVE 09/05/2017 11: 45am 09/05/2017 2:20pm Testing on stool aspirate specimens is outside ruby software developer claims since specimen type not validated on this assay. Microbiology Results Procedure Source Organism/Result Collection Date/Time Result Date/Time Result Status Urine Culture Urine,Catheterized ENTEROCOCCUS FAECIUM-VRE 07/31/2017 9: 55am 08/02/2017 9:35am Final Sputum Culture Sputum, Expectorated Sputum PSEUDOMONAS AERUGINOSA 2017 3:00am 08/21/2017 8:43am Final Sputum Culture Sputum, Induced PSEUDOMONAS AERUGINOSA 08/31/2017 4:00am 8:11am Final Blood Culture Blood KLEBSIELLA PNEUMONIAE-ESBL 09/03/2017 11:25am 2017 7:26am Final PSEUDOMONAS AERUGINOSA 09/03/2017 11:25am 09/06/2017 7:26am Final Blood Culture Blood NO GROWTH AFTER 5 DAYS, FINAL REPORT 09/08/2017 4:30pm 09/13/2017 4:39pm Final Wound Culture Sacral ENTEROCOCCUS SPECIES 09/19/2017 5:00pm 09/21/2017 10: 14am Preliminary GRAM NEGATIVE YOAN 09/19/2017 5:00pm 09/21/2017 10:14am Preliminary GRAM NEGATIVE YOAN#2 09/19/2017 5:00pm 09/21/2017 10:14am Preliminary GRAM NEGATIVE YOAN#3 09/19/2017 5:00pm 09/21/2017 10:14am Preliminary Procedures Procedure Status Date Provider(s) RESPIRATORY VENTILATION, 24-96 CONSECUTIVE HOURS Completed 07/31/17 KRISTINE GASTON MD CHANGE TRACHEOSTOMY DEVICE IN TRACHEA, EXTERNAL APPROACH Completed 07/31/17 KRISTINE GASTON MD PERFORMANCE OF URINARY FILTRATION, <6 HRS/DAY Completed 07/30/17 KORIN BANUELOS DAVID M MD INSERTION OF INFUSION DEV INTO SUP VENA CAVA, PERC APPROACH Completed KORIN BANUELOS DAVID M MD Diagnostic laparoscopy Completed 09/19/17 CHIKA FELDER MD Ultrasound guidance for vascular access Active 07/31/[address] of abdomen and pelvis without contrast Active 07/31/17 SHAYLA WEI MD Ultrasound of chest including mediastinum Active 08/24/17 CHIKA POLANCO MD Encounters Encounter Location Arrival/Admit Date Discharge/Depart Date Attending Provider Discharged Inpatient [facility] 08/16/17 3:40pm 09/21/17 8:15pm ROMAN ARGUELLO MD Discharged Inpatient [facility] 07/29/17 10:28pm 11:54am ROMAN ARGUELLO MD Departed Emergency Room [facility] 07/20/17 4:30am 6:47am JOYCE JIMÉNEZ MD
--- NOTE | 2017-10-03 20:20 | Diagnostic Imaging Report ---
Examination: Single AP view of the chest. COMPARISON: September 10, 2017 INDICATION: Altered mental status DISCUSSION: Lines/tubes: Tracheostomy. 2-lead dialysis catheter unchanged in position. Lungs: Pulmonary edema. Pleura: There is no pleural effusion or pneumothorax. Heart and mediastinum: Prominent heart size. Bones and soft tissues: No acute bony abnormalities. IMPRESSION: Pulmonary edema Signed by: Dr. Philip Velasco M.D. on 10/03/2017 8:16 PM
[2017-10-03 21:55] LABS: INR 1.24; PROTHROMBIN TIME 14.7 seconds (11.9-14.5)
[2017-10-03 21:56] LABS: ANION GAP 17.1 mmol/L (8-16); CALCIUM 9.9 mg/dL (8.4-10.2); CREATININE, SERUM 3.29 mg/dL (0.57-1.11); MAGNESIUM 2.1 MG/DL (1.3-2.1); POTASSIUM 2.1 mmol/L (3.5-5.1)
[2017-10-03 21:57] LABS: ALBUMIN 2.1 g/dL (3.5-5.0); ALBUMIN/GLOBULIN RATIO 0.6 (0.8-2.0); CREATINE KINASE MB 2.6 ng/mL (0-5.0)
[2017-10-03 21:58] LABS: RED BLOOD COUNT 2.43 x10e6/uL (3.6-5.1)
[2017-10-03 21:59] LABS: EOSINOPHILS % 1.1 % (0.0-6.0); HEMATOCRIT 19.9 % (34.2-44.1); LYMPHOCYTES % 1.5 % (18.0-39.1); MEAN CORPUSCULAR HEMOGLOBIN 24.7 pg (28-32); MEAN CORPUSCULAR HGB CONC 30.2 g/dL (31-35); MEAN CORPUSCULAR VOLUME 81.9 fL (81-99); MONOCYTES % 1.3 % (4.4-11.3); NEUTROPHILS % 11.4 % (38.7-80.0); PLATELET COUNT 621 x10e3/uL (140-360); RED CELL DISTRIBUTION WIDTH 17.8 % (11.7-14.4)
[2017-10-03] MEDS ORDERED: SODIUM CHLORIDE 0.9% 250ML 250 ML IV ONE (22:30)
[2017-10-03] MEDS ORDERED: FUROSEMIDE INJ 10 MG/ML 2 ML VIAL IV PRN (22:30)
[2017-10-04] LABS: CLARITY,URINE CLOUDY (CLEAR); COLOR,URINE AMBER (YELLOW); LEUKOCYTE ESTERASE ,URINE 2+ (NEGATIVE)
[2017-10-04] MEDS ORDERED: DEXTROSE 50% SYRINGE 50 ML IV PRN
[2017-10-04] MEDS ORDERED: POTASSIUM CHLORIDE 10MEQ/100ML 200 ML IV ONE
[2017-10-04 00:01] LABS: BILIRUBIN,URINE 1+ (NEGATIVE); KETONES,URINE TRACE (NEGATIVE); NITRITE,URINE POSITIVE (NEGATIVE); PROTEIN,URINE DIPSTICK 3+ (NEGATIVE); URINE UROBILINOGEN 0.2 mg/dL (0.2 - 1)
[2017-10-04 00:13] LABS: WBC,URINE (MAN) >50 /HPF (0-5)
[2017-10-04 00:15] LABS: BACTERIA,URINE MANY /HPF; EPITHELIAL CELLS,URINE MODERATE /LPF; RBC,URINE 0-5 /HPF (0-5); TRANSITIONAL EPI CELLS,URINE FEW
[2017-10-04 00:18] LABS: TRIPLE PHOSPHATE CRYSTAL,UR FEW (FEW)
[2017-10-04] MEDS ORDERED: GENTAMICIN 60MG/NS 50ML 50 ML IV STA (02:15)
[2017-10-04] MEDS ORDERED: CLONIDINE HCL 0.2 MG/24 HR 1 EA PATCH TOP SCH (02:15)
[2017-10-04] MEDS ORDERED: MEROPENEM 500MG 500 MG in SODIUM CHLORIDE 0.9% 50ML 50 ML IV SCH (02:15)
[2017-10-04] MEDS ORDERED: HYDRALAZINE HCL 20 MG/ML VIAL IV STA (03:00)
[2017-10-04 03:40] VITALS: BP 140/63
[2017-10-04 04:54] VITALS: BP 123/61
[2017-10-04] MEDS ORDERED: SODIUM CHLORIDE 0.9% 250ML 250 ML ONE ×2 (05:35→12:19)
[2017-10-04] MEDS ORDERED: MEROPENEM 500 MG VIAL ONE (07:48)
[2017-10-04 08:24] VITALS: BP 159/74
[2017-10-04] MEDS: INSULIN REGULAR, HUMAN 100 UNIT/1 ML 3ML VIAL SQ SCH ×4 (08:40→21:53)
[2017-10-04 10:39] LABS: BASOPHILS # (AUTO) 0.1 (0.0-0.1); BASOPHILS % 0.4 % (0.0-1.0); EOSINOPHILS % 7.8 % (0.0-6.0); HEMATOCRIT 25.6 % (34.2-44.1); HEMOGLOBIN 8.2 g/dL (12.0-16.0); LYMPHOCYTES # (AUTO) 1.5 (1.0-3.2); LYMPHOCYTES % 11.9 % (18.0-39.1); MEAN CORPUSCULAR HEMOGLOBIN 25.7 pg (28-32); MEAN CORPUSCULAR VOLUME 80.3 fL (81-99); MONOCYTES # (AUTO) 1.2 (0.2-0.8); MONOCYTES % 9.3 % (4.4-11.3); NEUTROPHILS % 69.8 % (38.7-80.0); PLATELET COUNT 498 x10e3/uL (140-360); RED BLOOD COUNT 3.19 x10e6/uL (3.6-5.1); RED CELL DISTRIBUTION WIDTH 16.6 % (11.7-14.4)
[2017-10-04 11:02] LABS: ALBUMIN/GLOBULIN RATIO 0.6 (0.8-2.0); ANION GAP 18.5 mmol/L (8-16); CALCIUM 9.5 mg/dL (8.4-10.2); CREATININE, SERUM 3.96 mg/dL (0.57-1.11)
[2017-10-04 11:03] LABS: POTASSIUM 2.5 mmol/L (3.5-5.1)
[2017-10-04] MEDS ORDERED: POTASSIUM CHLORIDE 20 MEQ TAB CR PO STA ×2 (11:07→12:13)
[2017-10-04] MEDS ORDERED: POTASSIUM CHLORIDE 20MEQ/100ML 100 ML IV ONE ×4 (12:00→18:00)
[2017-10-04 12:17] VITALS: BP 172/75
[2017-10-04] MEDS ORDERED: POTASSIUM CHLORIDE 20MEQ/15ML UDC PEG NR (12:30)
[2017-10-04] MEDS ORDERED: LACTULOSE SYRUP 20 GM/30 ML UDC PEG PRN (13:30)
[2017-10-04] MEDS ORDERED: CHOLESTYRAMINE 4 GM PACKET PEG PRN (13:30)
[2017-10-04] MEDS ORDERED: CLONIDINE HCL 0.2 MG TAB PEG SCH (13:30)
[2017-10-04] MEDS: CLONIDINE HCL 0.3 MG TAB PEG SCH ×2 (14:00→21:54)
[2017-10-04] MEDS ORDERED: HYDROCODONE/APAP 5MG-325MG TAB PO PRN (14:15)
[2017-10-04] MEDS ORDERED: MORPHINE SULFATE 2 MG/ML SYR IV PRN (14:15)
[2017-10-04] MEDS ORDERED: HYDROCODONE/APAP 5MG-325MG TAB PEG PRN (14:15)
[2017-10-04] MEDS ORDERED: FERROUS SULFATE 325 MG TAB PEG SCH (15:00)
[2017-10-04] MEDS: FAMOTIDINE 20 MG/2 ML VIAL IV SCH ×2 (15:00→16:19)
[2017-10-04 15:08] LABS: IRON 16 ug/dL (50-170); TRANSFERRIN < 70 mg/dL (180-382)
[2017-10-04] MEDS ORDERED: HYDRALAZINE HCL 20 MG/ML VIAL IV PRN (15:15)
[2017-10-04 15:27] LABS: FERRITIN 1762.31 ng/mL (4.63-204.00)
--- NOTE | 2017-10-04 15:35 | Consultation ---
DATE OF CONSULTATION: October 04, 2017 NEPHROLOGY CONSULTATION REASON FOR CONSULTATION: End-stage renal disease. HISTORY: This is an unfortunate, 37-year-old female whom we follow as an outpatient. She gets dialysis at [facility] every Tuesday, and Tuesday for end-stage renal disease. She is also known to have diabetes, hypertension, status post cardiac arrest with severe anoxic brain injury and respiratory failure, status post tracheostomy and PEG. She recently got admitted for pneumonia and leukocytosis with sepsis, and she is basically colonized with multiple microorganisms for which infectious disease has been following with antibiotics on and off and [facility] Lab work revealed that her hemoglobin was severely low around 6, and she came back for a blood transfusion. We are consulted to manage dialysis as an inpatient. PAST MEDICAL HISTORY: End-stage renal disease, hypertension, diabetes type 1 since the age of 7, history of seizures, history of pneumonia and C. diff along with respiratory failure and anoxic brain injury. PAST SURGICAL HISTORY: Status post tracheostomy and PEG tube placement and a tunneled catheter for hemodialysis. FAMILY HISTORY: Positive for hypertension and diabetes. SOCIAL HISTORY: She is basically now residing in [facility]. No alcohol or smoking history in the past. ALLERGIES: NEGATIVE PER RECORD. PHYSICAL EXAMINATION VITALS: Today, blood pressure 169/74, heart rate 80, temperature 97.4. GENERAL APPEARANCE: She is opening her eyes spontaneously. Does not follow commands. HEAD, EARS, EYES, NECK: No lymphadenopathy. HEART: Regular rate and rhythm. LUNGS: Good bilateral air entry. ABDOMEN: Soft, nontender. EXTREMITIES: Trace edema. LABS: Today, sodium 134, potassium 2.5, CO2 22, BUN 41, creatinine 3.9, albumin 2.0, calcium 9.5. LFTs are normal. Lactic acid 10.9. Glucose 285. Her hemoglobin today was 6 and white count 15.4. ASSESSMENT AND PLAN 1. End-stage renal disease on hemodialysis every Tuesday, , and Tuesday. We are going to dialyze the patient today. Orders have been given. 2. Anemia. Decrease in hemoglobin and hematocrit. Check occult and iron stores and give her Epogen. The patient is status post PRBCs. 3. Electrolytes. Increase potassium bath and replete potassium cautiously. 4. Volume status. Chest x-ray with pulmonary consultation. Challenge UF as tolerated. 5. History of pneumonia and sepsis recently was treated. 6. History of Clostridium difficile. ID is following. 7. Anoxic brain encephalopathy, status post tracheostomy and percutaneous endoscopic gastrostomy tube. 8. Diabetes. Monitor blood sugar on insulin. 9. Hypertension. Resume admit blood pressure medications and reassess post fluid removal post hemodialysis. Thank you for the consult. We will update the primary team for further recommendations. CUBA WOODALL MD Job#: [id number] MH
--- NOTE | 2017-10-04 15:41 | Consultation ---
DATE OF CONSULTATION: INFECTIOUS DISEASE CONSULTATION REASON FOR CONSULTATION: Sepsis, pneumonia, decubitus ulcer. HISTORY OF PRESENT ILLNESS: This is a patient who is known to me from before. She is a 37-year-old female with multiple admissions. The patient was recently in the hospital. She is coming from the half-way with abnormal lab. Her potassium and hemoglobin were abnormal. The patient does not really provide any meaningful information. So she was seen in the emergency room to be evaluated and admitted. The patient is very ill. I have had several discussions with her family about hospice, but they are against it. The patient does not really provide any meaningful information at the present time. The patient has history of hospital-acquired pneumonia, history of diabetes mellitus type 2, DKA, hyperkalemia, hyponatremia, decubitus ulcer. She was recently in the hospital September 27. She was here in July, August and September and now coming back again. The patient is in persistent vegetative state after a cardiac arrest with anoxic brain injury status post tracheostomy, status post PEG, is in [facility], has been on several admissions with several antibiotics. Also, there is concern about history of seizure. She is coming with abnormal electrolytes. There is concern also that her decubitus ulcer is getting worse and also she may have again aspiration pneumonia. Infectious Disease was consulted. There is really no family at the present time. History was taken mainly from her chart. MEDICATION AT HOME: She is on Keppra and metoclopramide, hydralazine, Dulcolax, vitamin C, amlodipine, lactulose. ALLERGIES: NKA. SOCIAL HISTORY: Currently from a half-way. FAMILY HISTORY: Could not be obtained. REVIEW OF SYSTEMS: Could not be obtained. Her laboratory data reviewed. Her white count is 15.46, hemoglobin of 6.0, hematocrit of 19. Her sodium 134, potassium 2.5, her creatinine was 3.96. Her cultures still pending. Chest x-ray which was done on October 03 showed pulmonary edema. Chart reviewed. PHYSICAL EXAMINATION: GENERAL: She is nonverbal, does not seem in acute distress. Alert, comfortable. VITALS: Stable, afebrile. HEENT: She does not appear icteric. Normocephalic. NECK: Supple. CHEST: A few crackles at the bases. HEART: S1/S2. No S3, no S4, no murmur. ABDOMEN: Soft. Bowel sounds present. No tenderness. She did have a decubitus ulcer. EXTREMITIES: No edema. HER MEDICATION LIST: She is on insulin, morphine, iron, Catapres, Keppra. She was on meropenem. IMPRESSION: 1. Concerned about aspiration pneumonia and concerned about decubitus ulcer. Agree with meropenem for now. Wound care consult. 2. Anoxic brain injury. 3. Chronic kidney disease. Will follow. Job#: [id number] EV
[2017-10-04 15:46] LABS: TOTAL IRON BINDING CAPACITY 90 ug/dL (261-478)
[2017-10-04 15:53] LABS: % IRON SATURATION 18 % (15-50)
[2017-10-04] MEDS: ASCORBIC ACID 500 MG TAB PEG SCH (16:00)
[2017-10-04] MEDS: FERROUS SULFATE 300 MG/5 ML LIQD PEG SCH ×2 (16:00→21:54)
--- NOTE | 2017-10-04 16:25 | Consultation ---
DATE OF CONSULTATION: History obtained from her chart. An unfortunately 37-year-old woman with history of insulin-dependent diabetes for 8 years, history of peritoneal dialysis in the past, history of stroke. Treated at [facility]. She has been in a persistent vegetative state. She has had sacral wounds which have been debrided. She has a diverting colostomy. She is chronically on antibiotics. In addition, she has been on amlodipine, DuoNeb, Keppra, Fortaz, Diflucan, doxazosin, Pepcid, iron, Apresoline, Labetalol, insulin, clonidine. She has a dialysis catheter, colostomy and a PEG tube as well as trach. She is not interactive. PHYSICAL EXAMINATION VITAL SIGNS: Temperature 97.6, pulse 75, respirations 16, blood pressure 175/60. GENERAL: Roving eye movements and not interactive. Tracheostomy is in place. LUNGS: Diminished breath sounds. Clear anteriorly. HEART: Regular rhythm. ABDOMEN: PEG tube and colostomy. EXTREMITIES: Not edematous. IMPRESSION 1. Anemia. 2. Low potassium. 3. Persistent vegetative state. 4. Insulin-dependent diabetes. 5. End-stage renal disease. 6. Sacral wounds. RECOMMENDATIONS: Support. Supplemental oxygen. Nebulizer therapy. Wound care. Antibiotics as per IV. Long-term outlook is grim. Thank you for this kind referral. Job#: [id number]
[2017-10-04 16:47] VITALS: BP 151/77
[2017-10-04] MEDS: ACETAMINOPHEN 325 MG TAB PEG PRN (17:00)
[2017-10-04] MEDS: HYDRALAZINE HCL 25 MG TAB PEG SCH (17:21)
[2017-10-04] MEDS: METOCLOPRAMIDE HCL 10MG/10ML UDC PEG SCH (17:21)
[2017-10-04] MEDS ORDERED: METOCLOPRAMIDE HCL 10 MG TAB PEG SCH (18:00)
[2017-10-04] MEDS ORDERED: ALBUTEROL SULF 0.083% NEB SOLN 3 ML NEB NEB SCH (18:00)
[2017-10-04] MEDS ORDERED: SODIUM CHLORIDE 0.9% 250ML 500 ML IV PRN (18:15)
[2017-10-04] MEDS ORDERED: SODIUM CHLORIDE 0.9% 1000ML 2,000 ML IV PRN (18:15)
[2017-10-04] MEDS ORDERED: MANNITOL 25% 12.5GM/50 ML VIAL IV PRN (18:15)
[2017-10-04] MEDS ORDERED: HEPARIN SOD (PORCINE) 1000 UNIT/ML SDV IV PRN (18:15)
[2017-10-04] MEDS ORDERED: ALBUMIN 25% 12.5GM 0.25 GM/ML BTL IV PRN (18:15)
[2017-10-04] MEDS: ALBUTEROL SULF 0.083% NEB SOLN 3 ML NEB NEB SCH (20:45)
[2017-10-04 20:49] VITALS: BP 176/86
[2017-10-04] MEDS ORDERED: MEROPENEM 500 MG VIAL IV SCH (21:00)
[2017-10-04] MEDS: DOXAZOSIN MESYLATE 2 MG TAB PEG SCH (21:52)
[2017-10-04] MEDS: HEPARIN SOD (PORCINE) 5,000 UNIT/ML VIAL SC SCH (21:53)
[2017-10-04] MEDS: LEVETIRACETAM ORAL SOLUTION 500 MG/5 ML SOLN PEG SCH (21:54)
[2017-10-05] VITALS: BP 184/91
[2017-10-05] MEDS: METOCLOPRAMIDE HCL 10MG/10ML UDC PEG SCH ×4 (00:45→16:45)
[2017-10-05] MEDS: HYDRALAZINE HCL 25 MG TAB PEG SCH ×2 (00:45→05:33)
[2017-10-05] MEDS: ALBUTEROL SULF 0.083% NEB SOLN 3 ML NEB NEB SCH ×2 (01:00→15:00)
[2017-10-05] MEDS ORDERED: MEROPENEM 500MG 500 MG in SODIUM CHLORIDE 0.9% 50ML 50 ML IV SCH (03:00)
[2017-10-05 04:39] VITALS: BP 171/79
[2017-10-05] MEDS: ACETAMINOPHEN 325 MG TAB PEG PRN (04:46)
[2017-10-05] MEDS: CLONIDINE HCL 0.3 MG TAB PEG SCH ×2 (05:33→16:11)
[2017-10-05] MEDS ORDERED: DEXTROSE 50% SYRINGE 50 ML IV PRN (06:15)
[2017-10-05] MEDS: INSULIN REGULAR, HUMAN 100 UNIT/1 ML 3ML VIAL SQ SCH ×3 (06:26→16:45)
[2017-10-05 06:43] LABS: BASOPHILS # (AUTO) 0.1 (0.0-0.1); BASOPHILS % 0.7 % (0.0-1.0); EOSINOPHILS % 8.3 % (0.0-6.0); HEMATOCRIT 26.2 % (34.2-44.1); HEMOGLOBIN 8.1 g/dL (12.0-16.0); LYMPHOCYTES # (AUTO) 1.5 (1.0-3.2); LYMPHOCYTES % 11.8 % (18.0-39.1); MEAN CORPUSCULAR HEMOGLOBIN 25.2 pg (28-32); MEAN CORPUSCULAR HGB CONC 30.9 g/dL (31-35); MEAN CORPUSCULAR VOLUME 81.6 fL (81-99); MONOCYTES # (AUTO) 1.3 (0.2-0.8); MONOCYTES % 10.6 % (4.4-11.3); NEUTROPHILS # (AUTO) 8.4 (2.1-6.9); NEUTROPHILS % 67.6 % (38.7-80.0); PLATELET COUNT 497 x10e3/uL (140-360); RED BLOOD COUNT 3.21 x10e6/uL (3.6-5.1); RED CELL DISTRIBUTION WIDTH 17.5 % (11.7-14.4)
[2017-10-05 06:52] LABS: ANION GAP 27.6 mmol/L (8-16); BLOOD UREA NITROGEN 24 mg/dL (7-26); BUN/CREATININE RATIO 8 (6-25); CALCIUM 9.6 mg/dL (8.4-10.2); CARBON DIOXIDE 16 mmol/L (22-29); CHLORIDE 100 mmol/L (98-107); CREATININE, SERUM 2.84 mg/dL (0.57-1.11); EST GLOMERULAR FILTRATION RATE 23 ML/MIN (60-); IRON 12 ug/dL (50-170); PHOSPHORUS 1.7 MG/DL (2.3-4.7); POTASSIUM 3.6 mmol/L (3.5-5.1); SODIUM 140 mmol/L (136-145); TRANSFERRIN < 70 mg/dL (180-382)
[2017-10-05 07:03] LABS: GLUCOSE 559 mg/dL (74-118)
[2017-10-05 07:18] LABS: FERRITIN 1840.33 ng/mL (4.63-204.00)
[2017-10-05 07:53] LABS: FOLATE 19.5 ng/mL (7.0-15.4)
[2017-10-05 08:17] VITALS: BP 173/72
[2017-10-05 08:29] LABS: OCCULT BLOOD STOOL NEGATIVE (NEGATIVE)
[2017-10-05] MEDS ORDERED: INSULIN DETEMIR 100 UNIT/ML PEN SQ SCH ×3 (09:00→21:00)
[2017-10-05] MEDS ORDERED: AMLODIPINE BESYLATE 10 MG TAB PEG SCH (09:00)
[2017-10-05] MEDS ORDERED: FOLIC ACID/CYANOCOB/PYRIDOXINE TAB PO SCH (09:00)
[2017-10-05] MEDS ORDERED: FUROSEMIDE INJ 10 MG/ML 4 ML VIAL IV ONE (09:45)
[2017-10-05] MEDS ORDERED: INSULIN DETEMIR LEVEMIR SQ SCH (10:15)
[2017-10-05] MEDS: FAMOTIDINE 20 MG/2 ML VIAL IV SCH ×2 (10:51→16:43)
[2017-10-05] MEDS: LEVETIRACETAM ORAL SOLUTION 500 MG/5 ML SOLN PEG SCH (10:51)
[2017-10-05] MEDS: FERROUS SULFATE 300 MG/5 ML LIQD PEG SCH ×2 (10:51→16:11)
[2017-10-05] MEDS: DOXAZOSIN MESYLATE 2 MG TAB PEG SCH (10:52)
[2017-10-05] MEDS: ASCORBIC ACID 500 MG TAB PEG SCH ×2 (10:52→16:43)
[2017-10-05] MEDS: HEPARIN SOD (PORCINE) 5,000 UNIT/ML VIAL SC SCH (10:54)
[2017-10-05] MEDS ORDERED: EPOETIN ALFA 10000 UNIT/ML VIAL SC NR (11:00)
[2017-10-05 11:53] VITALS: BP 162/76
[2017-10-05] MEDS ORDERED: HYDRALAZINE HCL 100 MG TABLET PEG SCH (14:00)
[2017-10-05] MEDS ORDERED: HYDRALAZINE HCL 25 MG TAB PEG SCH (14:00)
[2017-10-05 14:33] LABS: C DIFFICILE TOXIN A&B AMP PROB NEGATIVE (NEGATIVE)
--- NOTE | 2017-10-05 15:47 | Consultation ---
DATE OF CONSULTATION: October 05, 2017 ENDOCRINE CONSULTATION Thank you very much for referring this patient. This is a 37-year-old black female who is very well known to me from her previous hospital admission. Patient was brought to the hospital this time because of anemia. Patient has anoxic encephalopathy, diabetes mellitus type with complications, end-stage renal failure on hemodialysis, sepsis, multiple decubitus ulcers and hemoglobin was 6 at the time of admission. Patient is presently on the Levemir insulin 10 units twice a day and Humalog depending upon the blood sugars. Her blood sugar at the time of admission was 559 and anion gap was elevated at 27.6. Her creatinine was also significantly elevated. PHYSICAL EXAMINATION: GENERAL: Today, the patient has altered mental status. She is not arousable. She is very thin built. VITAL SIGNS: Her heart rate is around 68.. Blood pressure is130/80 mmHg. HEENT: Examination essentially unremarkable. NECK: Thyroid is palpable. Clinically she is near euthyroid. CHEST: Bilateral vesicular breathing. She has mild bronchospasm. CARDIAC: Both 1st and 2nd heart sounds. There is no 3rd or 4th heart sound. Ejection sound is grade 2/6. CLINICAL IMPRESSION: 1. Anoxic encephalopathy. 2. End-stage renal failure on hemodialysis. 3. Diabetes mellitus type 1, uncontrolled with complications. Severe anemia and multiple decubitus ulcers. PLAN: The patient will be started on insulin schedule. Levemir will be increased and continue the Humalog with each meal. She is also on the tube feedings. Thanks for referring this patient. I will be following this patient with you. Job#: [id number]
[2017-10-05 15:52] VITALS: BP 149/76
[2017-10-06] MEDS ORDERED: EPOETIN ALFA 10000 UNIT/ML VIAL SC SCH (09:00)
--- NOTE | 2017-10-13 14:24 | Discharge Summary ---
ADMISSION DIAGNOSES 1. Anemia. 2. Hypokalemia. 3. End-stage renal disease. 4. Hypertension. 5. Type 1 diabetes. 6. 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 7. Leukocytosis. DISCHARGE DIAGNOSES 1. Anemia. 2. Hypokalemia. 3. End-stage renal disease. 4. Hypertension. 5. Type 1 diabetes. 6. 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 7. Leukocytosis. 8. Rule out gastrointestinal bleed. 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 HOSPITAL COURSE: A 37-year-old female, [facility] hypokalemia, anemia and decubitus ulcers. Hemoglobin on admission was 6, potassium was 2.1. Patient afebrile. WBC 16.46. Patient is neurovegetative, father at bedside. On admission, the patient received 2 units of PRBC, stool for blood was negative. Potassium was replaced and patient was dialyzed. Home medications resumed for hypertension, diabetes. Due to the white count, patient was placed on Merrem. Patient's urine culture was negative, blood culture was negative and sacral wound came back with gram-negative rods. At the time of discharge, WBC was 12.46, hemoglobin of 8.1, hematocrit of 26.2, platelet of 497,000. Sodium 140, potassium 3.6, creatinine 2.84, BUN of 24, A1c of 5.6. Patient is okay to discharge back [facility] with 8 more days of IV antibiotic per infectious disease. She will continue all the same medicines. Father informed of the plan and he agrees with treatment. Dictated By: Brit Rg NP ROMAN SHAHID MD Job#: [id number] GE
== END 2017-10-05 19:02 ==
LOC: ER 18:24 → ERHOLD 23:57 → IMCU 10-04 02:43
PROVIDERS: ADMIT Internal Medicine; ATTEND Internal Medicine
DX: D62 Acute posthemorrhagic anemia (principal); E87.6 Hypokalemia; D63.1 Anemia in chronic kidney disease; I12.0 Hypertensive chronic kidney disease with stage 5 chronic kidney disease or end stage renal disease; N18.6 End stage renal disease; G93.1 Anoxic brain damage, not elsewhere classified; Z93.1 Gastrostomy status; Z99.2 Dependence on renal dialysis; E10.22 Type 1 diabetes mellitus with diabetic chronic kidney disease; Z79.4 Long term (current) use of insulin; Z93.0 Tracheostomy status; Z93.3 Colostomy status; J96.10 Chronic respiratory failure, unspecified whether with hypoxia or hypercapnia; J69.0 Pneumonitis due to inhalation of food and vomit; R40.3 Persistent vegetative state; L89.154 Pressure ulcer of sacral region, stage 4; L89.324 Pressure ulcer of left buttock, stage 4; L89.314 Pressure ulcer of right buttock, stage 4; B96.1 Klebsiella pneumoniae [K. pneumoniae] as the cause of diseases classified elsewhere; B96.5 Pseudomonas (aeruginosa) (mallei) (pseudomallei) as the cause of diseases classified elsewhere; Z16.12 Extended spectrum beta lactamase (ESBL) resistance; B95.2 Enterococcus as the cause of diseases classified elsewhere; Z16.22 Resistance to vancomycin related antibiotics
CPT/HCPCS: 36430; 90935; P9016; 36415; 51700; 71045; 80048; 80053; 81001; 82270; 82550; 82553; 82607; 82728; 82746; 82948; 83036; 83540; 83605; 83735; 83880; 84100; 84466; 84484; 85025; 85610; 85730; 86706; 86707; 86850; 86900; 86920; 87040; 87071; 87086; 87186; 87205; 87340; 87493; 90962; 93005; 94640; 96372; 99284; C1769; G0378; J0360; J1580; J1644; J2185; J3480; J7030; J7050

== ENCOUNTER 2017-10-06 13:55 | Emergency (ER) | payer OTHER ==
[~2017-10-06] VITALS: Ht 157.5 cm; Wt 48.5 kg
--- OUTSIDE RECORDS SUMMARY | 2017-10-06 13:59 | XMS REPORT | Continuity of Care Document ---
Author Author [facility] Organization [facility] Address [address] [place] [address] Phone Unavailable Care Team Providers Care Photo Checker And Assembler Name Role Phone ROMAN SHAHID MD PCP Insurance Providers Guarantor Maximilian Delgado Address [address] [place] [address] Email [facility] Policy Number [id number] Subscriber's Name Maximilian Delgado Lacana Relationship 18 Self / Same As Patient Group Number [id number] Effective Date 17 Payer [facility] Policy Number [id number] Subscriber's Name IsabellaMaximilian Marguerite Relationship 18 Self / Same As Patient Effective Date 12 Advance Directives Directive Response Recorded Date/Time Does the patient have an advance directive? No 10/04/17 3:40am If yes, is advance directive on file with [facility]? No 10/04/17 3:40am If not on file with [facility] will patient provide a copy? No 10/04/17 3:40am Do you have a Directive to Physician? No 10/03/17 8:44pm Do you have a Medical Power of Research Technician? No 10/03/17 8:44pm Do you have an out of hospital Do Not Resuscitate Order? No 10/03/17 8:44pm Do you have any special needs we should be aware of? No 10/03/17 8:44pm Do you have a support person here with you today? No 10/03/17 8:44pm Did patient receive Notice of Privacy Practices? Yes 10/03/17 8:44pm Did patient receive patient rights and responsibilities? Yes 10/03/17 8:44pm Problems Medical Problem Onset Date Status Anemia Unknown DKA, type 2 Unknown Decubital ulcer Unknown Hospital-acquired pneumonia Unknown Hyperkalemia Unknown Hypokalemia Unknown Hyponatremia Unknown Medications Current Home Medications [...] 1 Gm/50 Ml Piggyback 2 Gm Intraven Cholestyramine (Cholestyramine Light Packet) 4 Gm Pack 4 Gm Oral Twice A Day as needed for Diarrhea 30 Days 09/21/17 Clonidine Hcl 0.2 Mg Tablet 0.2 Mg Peg Tube Tue,Mon,Wed,Tue Clonidine Hcl (Catapres) 0.3 Mg Tablet 0.3 [...] 150 Mg Tablet 150 Mg Peg Tube Th,Sat Folic Acid/Cyanocob/Pyridoxine (Nephro-Be Tablet) 1 Ea Tab 1 Each Peg Tube Daily 30 Tab Heparin Sodium,Porcine/Pf (Heparin Sod 1,000 Unit/Ml Vial) 1,000 Unit/1 Ml Vial 4,000 Unit Intraven As Needed as needed for For Catheter Pack 30 Days 09/21/17 Hydralazine Hcl 25 Mg Tab 50 Mg Oral Every 6 Hours Insulin Detemir 100 Unit/Ml Pen 8 Unit Sub-Q Every 12 Hours 30 Days 09/21/17 Insulin Lispro 100 [...] Tube Every 12 Hours 30 Days 09/21/17 Levetiracetam 500 Mg Tablet 100 Mg Peg Tube Every 12 Hours Mannitol 50 Ml Soln 100 Ml Intraven As Needed as needed for Bp Support During Dialysis 30 09/21/17 Metoclopramide Hcl 10 Mg Tablet 5 Mg Peg Tube Every 6 Hours Metoprolol Tartrate 1 Mg/Ml Soln 2.5 Mg Intraven Every 6 Hours as needed for High Blood Pressure 09/21/17 Metronidazole 500 Mg Tablet 500 Mg Peg Tube Every 8 Hours Morphine Sulfate 2MG/Ml 2 Mg/Ml Inj 2 Mg Intraven Every 4 Hours as needed for Pain 30 09/21/17 Pantoprazole Sodium (Protonix Iv) 40 Mg [...] Onset Date Status Hx Psychiatric Problems No 10/04/2017 3:40am Not Applicable Not Applicable Smoking Status Start Date Stop Date Unknown if ever smoked Hospital Discharge Instructions No hospital discharge instruction information available. Plan of Care Discharge Date 10/05/17 7:02pm Disposition [facility] ([facility]) Prescriptions See Medication Section Functional Status Query Response Date Recorded Assistive Devices None October 04, 2017 3:40am Ambulation Ability Total Assistance October 04, 2017 3:40am Toileting Ability Total Assistance October 04, 2017 3:40am Allergies, Adverse Reactions, Alerts No known allergies. Immunizations No immunization information available. Vital Signs Acute Vital Signs Vital Response Date/Time Temperature (Fahrenheit) 98.1 degrees F (97.6 - 99.5) 10/05/2017 3:52pm Pulse Pulse Rate (adult) 79 bpm (60 - 90) 10/05/2017 3:52pm Respiratory Rate 21 bpm (12 - 24) 10/05/2017 3:52pm Blood Pressure 149/76 mm Hg 10/05/2017 3:52pm Height 5 ft 2 in 10/03/2017 6:35pm Weight 107 lb 10/03/2017 6:35pm Body Mass Index 19.6 kg/m^2 10/04/2017 3:40am Results Laboratory Results Test Name Result Units [...] L 3.0-3.6 08/04/2017 8:10am 08/04/2017 8: 46am Human Chorionic Gonadotropin, Qual NEGATIVE NEGATIVE 07/31/2017 4: 20pm 07/31/2017 5:39pm Hepatitis Be Antibody Negative Negative 07/30/2017 9:34am 08/01/2017 11:46pm Performed at: [facility] [id number] Sales Associate Key Holder: Sandip Hair MD, Phone: [phone] Hepatitis C Antibody <0.1 07/30/2017 9:34am 08/02/2017 9:31am Reference Range: 0.0 - 0.9 s/co ratio Negative: < 0.8 Indeterminate: 0.8 - 0.9 Positive: > 0.9 The CDC recommends that a positive HCV antibody result be followed up with a HCV Nucleic Acid Amplification test (249031). [facility] [address] [id number] Dir: Ric Cook MD For inquiries, the physician may contact Branch: [phone] Lab: [phone] Differential Total Cells Counted 100 09/19/2017 5:35am [...] % L 0.8-2.2 09/08/2017 5:50am 09/08/2017 6:55am D-Dimer Quantitative (PE/DVT) 2.39 ug/mLFEU H 0.00-0.45 09/08/2017 4: 30pm 09/08/2017 5:01pm As with all in vitro diagnostic tests, the test results should be interpreted by the physician in conjunction with clinical findings and other test results. Test results are reported in NEW D-dimer units(ug/mLFEU). Urine Renal Epithelial Cells RARE H NONE 08/16/2017 11:50am 2017 1:21pm Urine Hyaline Casts 2-5 H 0-1 08/16/2017 11:50am 08/16/2017 1:21pm Urine Fine Granular Casts 1-5 H 0 08/16/2017 11:50am 08/16/2017 1: 21pm Ammonia 30 UG/DL L 31-123 08/16/2017 4:45pm 08/16/2017 5:08pm Free Thyroxine 1.03 ng/dL 0.9-1.8 08/17/2017 5:50am [...] Oxygen Saturation 100.0 % H 95-98 09/08/2017 5:25pm 09/08 5:39pm FiO2 60 % 09/08/2017 5:25pm 09/08/2017 5:39pm PRVC 12 450 60% +5 RIGHT RADIAL Hepatitis B Core Total Antibody Negative Negative 09/12/2017 12:45pm 09/13/2017 7:51am Performed at: - [facility] [id number] Sales Associate Key Holder: Ric Cook MD, Phone: [phone] 25-Hydroxy Vitamin D Total 20 ng/mL L . 08/29/2017 11:15am 09/03/2017 8: 04am Reference Range: All Ages: Target levels 30 - 100 25-Hydroxy Vitamin D3 17 ng/mL . 08/29/2017 11:15am 09/03/2017 8:04am Performed at: [facility] [address] [place] [id number] Sales Associate Key Holder: Francisco Felix MD, Phone: [phone] 25-Hydroxy Vitamin D2 2.7 ng/mL . 08/29/2017 [...] 15 - 65 < 8.6 Performed at: HD - [facility] [address] [id number] Sales Associate Key Holder: Ric Cook MD, Phone: [phone] Performed at: - [facility] [address] [id number] Sales Associate Key Holder: Sandip Hair MD, Phone: [phone] White Blood Count 12.46 x10e3/uL H 4.8-10.8 10/05/2017 6:10a2017 6:55am Red Blood Count 3.21 x10e6/uL L 3.6-5.1 10/05/2017 6:10a10/05/2017 6: 55am Hemoglobin 8.1 g/dL L 12.0-16.0 10/05/2017 6:10a10/05/2017 6:55am Hematocrit 26.2 % L 34.2-44.1 10/05/2017 6:10a10/05/2017 6:55am Mean Corpuscular Volume 81.6 fL 81-99 10/05/2017 6:10a10/05/2017 6: 55am Mean Corpuscular Hemoglobin 25.2 pg L 28-32 10/05/2017 6:10a2017 6:55am Mean Corpuscular Hemoglobin Concent 30.9 g/dL L 31-35 10/05/2017 6:10a10/05/2017 6:55am Red Cell Distribution Width 17.5 % H 11.7-14.4 10/05/2017 6:10a2017 6:55am Platelet Count 497 x10e3/uL H 140-360 10/05/2017 6:10am 10/05/2017 6: 55am Neutrophils (%) (Auto) 67.6 % 38.7-80.0 10/05/2017 6:10/05/2017 6: 55am Lymphocytes (%) (Auto) 11.8 % L 18.0-39.1 10/05/2017 6:10/05/2017 6 :55am Monocytes (%) (Auto) 10.6 % 4.4-11.3 10/05/2017 6:10/05/2017 6: 55am Eosinophils (%) (Auto) 8.3 % H 0.0-6.0 10/05/2017 6:10/05/2017 6: 55am Basophils (%) (Auto) 0.7 % 0.0-1.0 10/05/2017 6:10/05/2017 6:55am IM GRANULOCYTES % 1.0 % 0.0-1.0 10/05/2017 6:10/05/2017 6:55am Neutrophils # (Auto) 8.4 H 2.1-6.9 10/05/2017 6:10/05/2017 6: 55am Lymphocytes # (Auto) 1.5 1.0-3.2 10/05/2017 6:10/05/2017 6:55am Monocytes # (Auto) 1.3 H 0.2-0.8 10/05/2017 6:10/05/2017 6:55am Eosinophils # (Auto) 1.0 H 0.0-0.4 10/05/2017 6:10/05/2017 6: 55am Basophils # (Auto) 0.1 0.0-0.1 10/05/2017 6:10/05/2017 6:55am Absolute Immature Granulocyte (auto 0.12 x10e3/uL H 0-0.1 10/05/2017 6: 10/05/2017 6:55am Prothrombin Time 14.7 seconds H 11.9-14.5 10/03/2017 8:00pm 10/03/2017 9 :55pm Prothromb Time International Ratio 1.24 10/03/2017 8:00pm 2017 9:55pm Oral Anticoagulant Therapy INR Values: 1. Low Intensity Therapy 1.5 - 2.0 2. Moderate Intensity Therapy 2.0 - 3.0 3. High Intensity Therapy(1) 2.5 - 3.5 4. High Intensity Therapy(2) 3.0 - 4.0 5. Panic Value INR > 5.0 Activated Partial Thromboplast Time 40.0 seconds H 23.8-35.5 10/03/2017 8 :00pm 10/03/2017 9:55pm Urine Color ADRIA H YELLOW 10/03/2017 11:40pm 10/04/2017 12:02am Urine Clarity CLOUDY H CLEAR 10/03/2017 11:40pm 10/04/2017 12:02am Urine Specific [place] 1.020 1.010-1.025 10/03/2017 11:40pm 2017 12:02am Urine pH 7 5 - 7 10/03/2017 11:40pm 10/04/2017 12:02am Urine Leukocyte Esterase 2+ H NEGATIVE 10/03/2017 11:40pm 10/04/2017 12:02am Urine Nitrite POSITIVE H NEGATIVE 10/03/2017 11:40pm 10/04/2017 12: 02am Urine Protein 3+ H NEGATIVE 10/03/2017 11:40pm 10/04/2017 12:02am Urine Glucose (UA) 2+ H NEGATIVE 10/03/2017 11:40pm 10/04/2017 12: 02am Urine Ketones TRACE H NEGATIVE 10/03/2017 11:40pm 10/04/2017 12:02am Urine Urobilinogen 0.2 mg/dL 0.2 - 1 10/03/2017 11:40pm 10/04/2017 12: 02am Urine Bilirubin 1+ H NEGATIVE 10/03/2017 11:40pm 10/04/2017 12:02am Urine Blood 3+ H NEGATIVE 10/03/2017 11:40pm 10/04/2017 12:02am Urine WBC >50 /HPF H 0-5 10/03/2017 11:40pm 10/04/2017 12:18am Urine RBC 0-5 /HPF 0-5 10/03/2017 11:40pm 10/04/2017 12:18am Urine Bacteria MANY /HPF H NONE 10/03/2017 11:40pm 10/04/2017 12:18am Urine Epithelial Cells MODERATE /LPF NONE 10/03/2017 11:40pm 2017 12:18am Urine Transitional Epithelial Cells FEW H NONE 10/03/2017 11:40pm 12:18am Urine Triple Phosphate Crystals FEW FEW 10/03/2017 11:40pm 2017 12:18am Sodium Level 140 mmol/L 136-145 10/05/2017 6:10am 10/05/2017 7:03am Potassium Level 3.6 mmol/L # 3.5-5.1 10/05/2017 6:10am 10/05/2017 7:03am Chloride Level 100 mmol/L 98-107 10/05/2017 6:10am 10/05/2017 7:03am Carbon Dioxide Level 16 mmol/L L 22-29 10/05/2017 6:10am 10/05/2017 7: 03am Anion Gap 27.6 mmol/L H 8-16 10/05/2017 6:10am 10/05/2017 7:03am Blood Urea Nitrogen 24 mg/dL 7-10/05/2017 6:10am 10/05/2017 7:03am Creatinine 2.84 mg/dL H 0.57-1.11 10/05/2017 6:10am 10/05/2017 7:03am BUN/Creatinine Ratio 8 6-10/05/2017 6:10am 10/05/2017 7:03am Estimat Glomerular Filtration Rate 23 ML/MIN L 60- 10/05/2017 6:10am 7:03am Ranges were taken from the National Kidney Disease Education Program and the National Kidney Foundation literature. Reference ranges: 60 or greater: Normal 16-59 (for 3 consecutive months): Chronic kidney disease 15 or less: Kidney failure Glucose Level 559 mg/dL *H 74-118 10/05/2017 6:10am 10/05/2017 7:03am Results called to LAURA NEWBY RN at 0701 on 10/05/17 by Jann Samaniego. RB OK. This test has been rerun and double checked for accuracy. Calcium Level 9.6 mg/dL 8.4-10.2 10/05/2017 6:10am 10/05/2017 7:03am Bedside Glucose 114 mg/dL 70-120 10/05/2017 3:19pm 10/05/2017 3:36pm Meter ID: [id number] Hemoglobin A1c Percent 5.6 % 4.0-7.0 10/05/2017 6:10am 10/05/2017 7: 33am Lactic Acid Level 10.9 MG/DL 4.5-19.8 10/03/2017 8:00pm 10/03/2017 9: 58pm Phosphorus Level 1.7 MG/DL L 2.3-4.7 10/05/2017 6:10am 10/05/2017 7: 03am Magnesium Level 2.0 MG/DL 1.3-2.1 10/05/2017 6:10am 10/05/2017 7:03am Iron Level 12 ug/dL L 50-170 10/05/2017 6:10am 10/05/2017 7:03am Total Iron Binding Capacity 90 ug/dL L 261-478 10/04/2017 10:35am 2017 3:54pm Percent Iron Saturation 18 % 15-50 10/04/2017 10:35am 10/04/2017 3: 54pm Transferrin < 70 mg/dL L 180-382 10/05/2017 6:10am 10/05/2017 7:03am Ferritin 1840.33 ng/mL H 4.63-204.00 10/05/2017 6:10am 10/05/2017 7: 23am Total Bilirubin 0.5 mg/dL 0.2-1.2 10/04/2017 10:35am 10/04/2017 11: 03am Aspartate Amino Transf (AST/SGOT) 9 IU/L 5-34 10/04/2017 10:35am 2017 11:03am Alanine Aminotransferase (ALT/SGPT) 6 IU/L 0-55 10/04/2017 10:35am 11:03am Total Protein 5.4 g/dL L 6.5-8.1 10/04/2017 10:35am 10/04/2017 11:03am Albumin 2.0 g/dL L 3.5-5.0 10/04/2017 10:35am 10/04/2017 11:03am Globulin 3.4 g/dL 2.3-3.5 10/04/2017 10:35am 10/04/2017 11:03am Albumin/Globulin Ratio 0.6 L 0.8-2.0 10/04/2017 10:35am 10/04/2017 11: 03am Alkaline Phosphatase 130 IU/L 40-150 10/04/2017 10:35am 10/04/2017 11: 03am B-Type Natriuretic Peptide 881.1 pg/mL H 0-100 10/05/2017 6:10am 2017 7:04am Creatine Kinase 36 IU/L 29-168 10/03/2017 8:00pm 10/03/2017 9:57pm Creatine Kinase MB 2.60 ng/mL 0-5.0 10/03/2017 8:00pm 10/03/2017 9: 57pm Troponin I 0.059 ng/mL 0-0.300 10/03/2017 8:00pm 10/03/2017 9:57pm Vitamin B12 Level 1168 pg/mL H 213-816 10/05/2017 6:10am 10/05/2017 7: 56am Folate 19.5 ng/mL H 7.0-15.4 10/05/2017 6:10am 10/05/2017 7:56am Hepatitis B Surface Antibody, Quant 6.9 mIU/mL L Immunity>9.9 10/04/2017 10:30am 10/05/2017 7:55am Status of Immunity Anti-HBs Level Inconsistent with Immunity 0.0 - 9.9 Consistent with Immunity >9.9 Hepatitis B Surface Antigen Negative Negative 10/04/2017 10:30am 7:55am Performed at: [address] [id number] Sales Associate Key Holder: Ric Cook MD, Phone: [phone] Stool Occult Blood NEGATIVE NEGATIVE 10/05/2017 5:45am 10/05/2017 8: 29am Clostridium Difficile Toxin A & B NEGATIVE NEGATIVE 10/05/2017 5:45am 10/05/2017 2:33pm Testing on stool aspirate specimens is outside rubber tubing splicer claims since specimen type not validated on [...] Final Blood Culture Blood NO GROWTH AFTER 24 HOURS 10/03/2017 9:11pm 10/04/2017 10:11pm Preliminary Wound Culture Sacral GRAM NEGATIVE YOAN 10/04/2017 2:30pm 10/05/2017 10: 12am Preliminary GRAM NEGATIVE YOAN#2 10/04/2017 2:30pm 10/05/2017 10:12am Preliminary Procedures Procedure Status Date Provider(s) RESPIRATORY VENTILATION, 24-96 CONSECUTIVE HOURS Completed 07/31/17 KRISTINE GASTON MD CHANGE TRACHEOSTOMY DEVICE IN TRACHEA, EXTERNAL APPROACH Completed 07/31/17 KRISTINE GASTON MD PERFORMANCE OF URINARY FILTRATION, <6 HRS/DAY Completed 07/30/17 KORIN BANUELOS DAVID M MD INSERTION OF INFUSION DEV INTO SUP VENA CAVA, PERC APPROACH Completed KORIN BANUELOS DAVID M MD RESPIRATORY VENTILATION, GREATER THAN 96 CONSECUTIVE HOURS Completed CHIKA POLANCO MD BYPASS SIGMOID COLON TO CUTANEOUS, PERC ENDO APPROACH Completed 09/19/17 CHIKA FELDER MD EXCISION OF BUTTOCK SUBCU/FASCIA, OPEN APPROACH Completed 09/19/17 CHIKA FELDER MD EXCISION OF L UP LEG SUBCU/FASCIA, OPEN APPROACH Completed 09/19/17 CHIKA FELDER MD INTRODUCTION OF VASOPRESSOR INTO CENTRAL VEIN, PERC APPROACH Completed LORRAINE GREENBERG MD RESPIRATORY VENTILATION, GREATER THAN 96 CONSECUTIVE HOURS Completed CHIKA POLANCO MD PERFORMANCE OF URINARY FILTRATION, <6 HRS/DAY Completed 08/17/17 KORIN BANUELOS Ultrasound guidance for vascular access Active 07/31/[address] of abdomen and pelvis without contrast Active 07/31/17 SHAYLA WEI MD Ultrasound of chest including mediastinum Active 08/24/17 CHIKA POLANCO MD Encounters Encounter Location Arrival/Admit Date Discharge/Depart Date Attending Provider Discharged Inpatient (obs) [facility] 10/03/17 11:57pm 7:02pm ROMAN SHAHID MD Discharged [facility]patient [facility] 08/16/17 3:40pm 09/21/17 8:15pm ROMAN SHAHID MD Discharged [facility]patient [facility] 07/29/17 10:28pm 11:54am ROMAN SHAHID MD [facility]arted Emergency [facility] 07/20/17 4:30am 6:47am JOYCE JIMÉNEZ MD
[2017-10-06 15:56] VITALS: BP 115/70
== END 2017-10-06 15:58 ==
LOC: ER 13:55
DX: I12.0 Hypertensive chronic kidney disease with stage 5 chronic kidney disease or end stage renal disease (principal); E11.22 Type 2 diabetes mellitus with diabetic chronic kidney disease; Z99.2 Dependence on renal dialysis; G93.1 Anoxic brain damage, not elsewhere classified; R13.10 Dysphagia, unspecified; Z93.0 Tracheostomy status; Z93.1 Gastrostomy status; Z93.3 Colostomy status
CPT/HCPCS: 99282

== ENCOUNTER → 2017-10-07 | Day surgery (SDC) | payer MEDICARE, OTHER ==
[~2017-10-07] VITALS: Ht 157.5 cm; Wt 48.5 kg
[~2017-10-07] MED LIST changes: +LIDOCAINE HCL 2% LOCAL 20 ML VIAL ONE; +SODIUM CHLORIDE 0.9% 500ML 500 ML ONE
--- OUTSIDE RECORDS SUMMARY | 2017-10-07 14:09 | XMS REPORT | Continuity of Care Document ---
Author Author [facility] Organization [facility] Address [address] [place] [address] Phone Unavailable Care Team Providers Care Cullet Crusher And Washer Name Role Phone ROMAN SHAHID MD PCP Insurance Providers Guarantor Maximilian Delgado Address [address] [place] [address] Email NONE Payer [facility] Policy Number [id number] Subscriber's Name Maximilian Delgado Relationship 18 Self / Same As Patient Group Number [id number] Effective Date 17 Payer [facility] Policy Number [id number] Subscriber's Name Maximilian Delgado Relationship 18 Self / Same As Patient Effective Date 12 Advance Directives Directive Response Recorded Date/Time Does the patient have an advance directive? No 10/04/17 3:40am If yes, is advance directive on file with [facility]? No 10/04/17 3:40am If not on file with [facility] will patient provide a copy? No 10/04/17 3:40am Do you have a Directive to Physician? No 10/06/17 3:30pm Do you have a Medical Power of Medical Coding Instructor? No 10/06/17 3:30pm Do you have an out of hospital Do Not Resuscitate Order? No 10/06/17 3:30pm Do you have any special needs we should be aware of? No 10/06/17 3:30pm Do you have a support person here with you today? No 10/06/17 3:30pm Did patient receive Notice of Privacy Practices? No 10/06/17 3:30pm Did patient receive patient rights and responsibilities? No 10/06/17 3:30pm Problems Medical Problem Onset Date Status Anemia [...] needed for Bp Support During Dialysis 09/21/17 Amlodipine Besylate 10 Mg Tablet 10 [...] 1 Gm/50 Ml Piggyback 2 Gm Intraven T,, Cholestyramine (Cholestyramine Light Packet) 4 Gm Pack 4 Gm Oral Twice A Day as needed for Diarrhea 09/21/17 Clonidine Hcl 0.2 Mg Tablet 0.2 Mg Peg Tube Tue,Tue,Tue,Tue Clonidine Hcl (Catapres) 0.3 Mg Tablet 0.3 [...] 0 Unit Sub-Q Every 4 Hours 30 09/21/17 Insulin Lispro 100 Unit/1 [...] Hours as needed for High Blood Pressure 30 09/21/17 Metronidazole 500 Mg Tablet 500 Mg [...] information available. Plan of Care Discharge Date 10/06/17 3:58pm Disposition DIS TO RETIREMENT BED Condition at Discharge Stable Instructions/Education Provided Skin Health Forms Provided Work/School Excuse Prescriptions See Medication Section Referrals ROMAN SHAHID MD Address: [address] [address] Additional Instructions/Education need to consult pICC for adjunct faculty for medical terminology IV Functional Status No functional status information available. Allergies, Adverse Reactions, Alerts No known allergies. Immunizations No immunization information available. Vital Signs Acute Vital Signs Vital Response Date/Time Temperature (Fahrenheit) 98.1 degrees F (97.6 - 99.5) 10/05/2017 3:52pm Pulse Pulse Rate (adult) 87 bpm (60 - 90) 10/06/2017 3:56pm Respiratory Rate 19 bpm (12 - 24) 10/06/2017 3:56pm Blood Pressure 115/70 mm Hg 10/06/2017 3:56pm Height 5 ft 2 in 10/06/2017 2:09pm Weight 107 lb 10/06/2017 2:09pm Body Mass Index 19.6 kg/m^2 10/06/2017 2:09pm Results Laboratory Results Test Name Result Units [...] NEGATIVE 07/31/2017 4: 20pm 07/31/2017 5:39pm Hepatitis C Antibody <0.1 07/30/2017 9:34am 08/02/2017 9:31am Reference Range: 0.0 - 0.9 s/co ratio Negative: < 0.8 Indeterminate: 0.8 - 0.9 Positive: > 0.9 The CDC recommends that a positive HCV antibody result be followed up with a HCV Nucleic Acid Amplification test ([id number]). [facility] [address] [id number] Dir: Ric Cook MD For inquiries, the physician may contact Branch: [phone] Lab: [phone] Differential Total Cells Counted 100 09/19/2017 5:35am [...] Negative 09/12/2017 12:45pm 09/13/2017 7:51am Performed at: [facility] [address] [id number] Wooden Tank Erector: Ric Cook MD, Phone: [phone] 25-Hydroxy Vitamin D Total 20 ng/mL L . 08/29/2017 11:15am 09/03/2017 8: 04am Reference Range: All Ages: Target levels 30 - 100 25-Hydroxy Vitamin D3 17 ng/mL . 08/29/2017 11:15am 09/03/2017 8:04am Performed at: - [facility] [address] [place] [id number] Wooden Tank Erector: Francisco Felix MD, Phone: [phone] 25-Hydroxy Vitamin D2 2.7 ng/mL . 08/29/2017 [...] 15 - 65 < 8.6 Performed at: [facility] [address] [id number] Wooden Tank Erector: Ric Cook MD, Phone: [phone] Performed at: [address] [id number] Wooden Tank Erector: Sandip Hair MD, Phone: [phone] White Blood Count 12.46 x10e3/uL H 4.8-10.8 10/05/2017 6:10a2017 6:55am Red Blood Count 3.21 x10e6/uL L 3.6-5.1 10/05/2017 6:10a10/05/2017 6: 55am Hemoglobin 8.1 g/dL L 12.0-16.0 10/05/2017 6:10a10/05/2017 6:55am Hematocrit 26.2 % L 34.2-44.1 10/05/2017 6:10a10/05/2017 6:55am Mean Corpuscular Volume 81.6 fL 81-99 10/05/2017 6:10/05/2017 6: 55am Mean Corpuscular Hemoglobin 25.2 pg L 28-32 10/05/2017 6:10a2017 6:55am Mean Corpuscular Hemoglobin Concent 30.9 g/dL L 31-35 10/05/2017 6:10/05/2017 6:55am Red Cell Distribution Width 17.5 % H 11.7-14.4 10/05/2017 6:2017 6:55am Platelet Count 497 x10e3/uL H 140-360 10/05/2017 6:10/05/2017 6: 55am Neutrophils (%) (Auto) 67.6 % 38.7-80.0 10/05/2017 6:10/05/2017 6: 55am Lymphocytes (%) (Auto) 11.8 % L 18.0-39.1 10/05/2017 6:10/05/2017 6 :55am Monocytes (%) (Auto) 10.6 % 4.4-11.3 10/05/2017 6:10a10/05/2017 6: 55am Eosinophils (%) (Auto) 8.3 % H 0.0-6.0 10/05/2017 6:10am 10/05/2017 6: 55am Basophils (%) (Auto) 0.7 % 0.0-1.0 10/05/2017 6:10am 10/05/2017 6:55am IM GRANULOCYTES % 1.0 % 0.0-1.0 10/05/2017 6:10am 10/05/2017 6:55am Neutrophils # (Auto) 8.4 H 2.1-6.9 10/05/2017 6:10am 10/05/2017 6: 55am Lymphocytes # (Auto) 1.5 1.0-3.2 10/05/2017 6:10am 10/05/2017 6:55am Monocytes # (Auto) 1.3 H 0.2-0.8 10/05/2017 6:10a10/05/2017 6:55am Eosinophils # (Auto) 1.0 H 0.0-0.4 10/05/2017 6:10am 10/05/2017 6: 55am Basophils # (Auto) 0.1 0.0-0.1 10/05/2017 6:10a10/05/2017 6:55am Absolute Immature Granulocyte (auto 0.12 x10e3/uL H 0-0.1 10/05/2017 6: 10am 10/05/2017 6:55am Prothrombin Time 14.7 seconds H [...] CLEAR 10/03/2017 11:40pm 10/04/2017 12:02am Urine Specific Plummer 1.020 1.010-1.025 10/03/2017 11:40pm 2017 12:02am Urine [...] 7:03am Carbon Dioxide Level 16 mmol/L L 22-10/05/2017 6:10a10/05/2017 7: 03am Anion Gap 27.6 mmol/L H 8-16 10/05/2017 6:10a10/05/2017 7:03am Blood Urea Nitrogen 24 mg/dL 7-10/05/2017 6:10a10/05/2017 7:03am Creatinine 2.84 mg/dL H 0.57-1.11 10/05/2017 6:10a10/05/2017 7:03am BUN/Creatinine Ratio 8 6-10/05/2017 6:10a10/05/2017 7:03am Estimat Glomerular Filtration Rate 23 ML/MIN L 60- 10/05/2017 6:10a 7:03am Ranges were taken from the National Kidney Disease Education Program and the National Kidney Foundation literature. Reference ranges: 60 or greater: Normal 16-59 (for 3 consecutive months): Chronic kidney disease 15 or less: Kidney failure Glucose Level 559 mg/dL *H 74-118 10/05/2017 6:10a10/05/2017 7:03am Results called to LAURA NEWBY RN at 0701 on 10/05/17 by Jann Samaniego. AB[place]HAM [place]. This test has been rerun and double checked for accuracy. Calcium Level 9.6 mg/dL 8.4-10.2 10/05/2017 6:10a10/05/2017 7:03am Bedside Glucose 114 mg/dL 70-120 10/05/2017 3:19pm 10/05/2017 3:36pm Meter ID: [id number] Hemoglobin A1c Percent 5.6 % 4.0-7.0 10/05/2017 6:10a10/05/2017 7: 33am Lactic Acid Level 10.9 MG/DL 4.5-19.8 10/03/2017 8:00pm 10/03/2017 9: 58pm Phosphorus Level 1.7 MG/DL L 2.3-4.7 10/05/2017 6:10a10/05/2017 7: 03am Magnesium Level 2.0 MG/DL 1.3-2.1 [...] - 9.9 Consistent with Immunity >9.9 Hepatitis Be Antibody Negative Negative 10/04/2017 10:30am 2017 1:32pm Performed at: - [facility] [id number] Wooden Tank Erector: Sandip Hair MD, Phone: [phone] Hepatitis B Surface Antigen Negative Negative 10/04/2017 10:30am 7:55am Performed at: - [facility] [address] [id number] Wooden Tank Erector: Ric Cook MD, Phone: [phone] Stool Occult Blood NEGATIVE NEGATIVE 10/05/2017 5:45am 10/05/2017 8: 29am Clostridium Difficile Toxin A & B NEGATIVE NEGATIVE 10/05/2017 5:45am 10/05/2017 2:33pm Testing on stool aspirate specimens is outside traffic clerk claims since specimen type not validated on [...] Final Blood Culture Blood NO GROWTH AFTER 48 HOURS 9:11pm 10/05/2017 10:11pm Preliminary Wound Culture Sacral GRAM NEGATIVE YOAN 10/04/2017 2:30pm 10/06/2017 7: 59am Preliminary GRAM NEGATIVE YOAN#2 10/04/2017 2:30pm 10/06/2017 7:59am Preliminary STREPTOCOCCUS SPECIES 10/04/2017 2:30pm 10/06/2017 7:59am Preliminary Procedures Procedure Status Date Provider(s) RESPIRATORY [...] guidance for vascular access Active 07/31/[address] of abdomen and pelvis without contrast Active 07/31/17 SHAYLA WEI MD Ultrasound of chest including mediastinum Active 08/24/17 CHIKA POLANCO MD Encounters Encounter Location Arrival/Admit Date Discharge/Depart Date Attending Provider Departed Emergency Room [facility] 10/06/17 1:55pm 3:58pm LES SNIDER DO Discharged Inpatient (obs) [facility] 10/03/17 11:57pm 7:02pm ROMAN SHAHID MD Discharged Inpatient [facility] 08/16/17 3:40pm 09/21/17 8:15pm ROMAN SHAHID MD Discharged Inpatient [facility] 07/29/17 10:28pm 11:54am ROMAN SHAHID MD Departed Emergency Room [facility] 07/20/17 4:30am 6:47am JOYCE JIMÉNEZ MD
--- NOTE | 2017-10-11 07:09 | Diagnostic Imaging Report ---
Non-tunneled Central Venous Catheter Placement 10/11/2017 Pre-Procedure Diagnosis: Infection requiring long-term IV antibiotics Post-procedure Diagnosis:Infection requiring long-term IV antibiotics Scrap Drop Operator: Solitario Hair Advanced Manufacturing Consultant: None Sedation: None. 1% lidocaine local anesthesia. Radiation Dose:20.1 cGycm2 (Dose Area Product) Fluoroscopy time:0.5 minutes Estimate blood loss: <5 mL Blood administered: None Complications: None Implants/Grafts: 16 cm 7-Icelandic 3 lumen CVC Specimen: None Procedure: Informed consent was obtained and the patient positioned supine in the IR suite. A timeout was performed, followed by preliminary ultrasound of the right internal jugular vein (see findings below). The right neck was prepped and draped in standard fashion. Using real-time ultrasound guidance a 21 gauge vascular needle was used to access the right external jugular vein. An image was stored in the electronic medical record. A wire was advanced while monitoring the patient's cardiac rhythm and the needle exchanged for a non-tunneled central venous catheter using Seldinger technique. The catheter was positioned at the low SVC/superior atrial-caval junction under fluoroscopy. At the end of the procedure the catheter was flushed, secured to the skin and a sterile dressing applied. The patient tolerated the procedure well and without immediate complication. Findings: 1. 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 2. 2 lm left internal jugular dialysis catheter with tips in the left brachiocephalic vein and brachiocephalic confluence. Impression: 1. Successful placement of a non-tunneled right external jugular central venous catheter using ultrasound and fluoroscopic guidance. 2. 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 3. Suboptimally positioned left internal jugular dialysis catheter. Consider revision. This report was generated with voice-recognition technology. Errors in supervisor fur dressing can occur. Please interpret accordingly and contact a radiologist if there are any questions regarding the report. Signed by: Dr. Jose E Hair M.D. on 10/11/2017 7:06 AM
--- NOTE | 2017-10-13 15:26 | Diagnostic Imaging Report ---
Non-tunneled Central Venous Catheter Placement 10/11/2017 Pre-Procedure Diagnosis: Infection requiring long-term IV antibiotics Post-procedure Diagnosis:Infection requiring long-term IV antibiotics Grain Elevator Man: Solitario Hair [place] Supervisor: None Sedation: None. 1% lidocaine local anesthesia. Radiation Dose:20.1 cGycm2 (Dose Area Product) Fluoroscopy time:0.5 minutes Estimate blood loss: <5 mL Blood administered: None Complications: None Implants/Grafts: 16 cm 7-Estonian 3 lumen CVC Specimen: None Procedure: Informed consent was obtained and the patient positioned supine in the IR suite. A timeout was performed, followed by preliminary ultrasound of the right internal jugular vein (see findings below). The right neck was prepped and draped in standard fashion. Using real-time ultrasound guidance a 21 gauge vascular needle was used to access the right external jugular vein. An image was stored in the electronic medical record. A wire was advanced while monitoring the patient's cardiac rhythm and the needle exchanged for a non-tunneled central venous catheter using Seldinger technique. The catheter was positioned at the low SVC/superior atrial-caval junction under fluoroscopy. At the end of the procedure the catheter was flushed, secured to the skin and a sterile dressing applied. The patient tolerated the procedure well and without immediate complication. Findings: 1. 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 2. 2 lm left internal jugular dialysis catheter with tips in the left brachiocephalic vein and brachiocephalic confluence. Impression: 1. Successful placement of a non-tunneled right external jugular central venous catheter using ultrasound and fluoroscopic guidance. 2. 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 3. Suboptimally positioned left internal jugular dialysis catheter. Consider revision. This report was generated with voice-recognition technology. Errors in outreach educator can occur. Please interpret accordingly and contact a radiologist if there are any questions regarding the report. Signed by: Dr. Jose E Hair M.D. on 10/11/2017 7:06 AM
== END | disposition home or self-care (01) ==
LOC: EDSTATUS 13:00 → CATH LAB 14:07
PROVIDERS: ATTEND Radiology Vascular & Interventional Radiology
DX: B99.9 Unspecified infectious disease (principal); I82.C21 Chronic embolism and thrombosis of right internal jugular vein; Z99.2 Dependence on renal dialysis; Z79.4 Long term (current) use of insulin
CPT/HCPCS: 36556; 76937; 77001; C1751; J2001; J7040; 36569